=== PATIENT | female | born 2005 | race Caucasian/White ===

== ENCOUNTER 2023-05-11 14:36 | Outpatient (OUT) | payer OTHER, SELFPAY ==
--- NOTE | 2023-05-11 14:47 | US_ITS ---
The [address] [address] Patient Name: PHILL ARREGUIN MRN: [id number] date: 2005 Sex: F Assigned Patient Location: US Current Patient Location: US Accession/Order Number: [id number] Exam Date: 05/11/2023 14:48 Report Date: 05/11/2023 16:26 At the request of: ERIC BARBER Procedure: US pelvis transvaginal EXAM: US pelvis transvaginal HISTORY: PELVIC PAIN COMPARISON: 03/12/2022. TECHNIQUE: Pelvic sonography was performed utilizing grayscale and color Doppler technique. FINDINGS: Anteverted uterus measures 10.0 x 5.2 x 6.0 cm. Uterine endometrial stripe measures 0.3 cm in thickness. Appropriately positioned IUD. Right ovary measures 3.1 x 1.7 x 2.0 cm. Normal right ovarian parenchyma. Left ovary measures 1.8 x 2.5 x 1.3 cm. Normal left ovarian parenchyma. Prominent bilateral adnexal vasculature although measuring less than 4 mm. Small amount of posterior pelvic fluid, likely physiologic. US/US pelvis transvaginal IMPRESSION: 1. No acute pelvic findings. 2. Appropriate positioned IUD. Electronically authenticated by: CUAUHTEMOC REYNOLDS Date: 05/11/2023 16:26
== END 2023-05-11 14:37 | disposition home or self-care (01) ==
LOC: US 14:43
PROVIDERS: Visit Provider Obstetrics & Gynecology
DX: R10.2 Pelvic and perineal pain (principal)
CPT/HCPCS: 76830

== ENCOUNTER 2023-05-19 13:53 | Outpatient (OUT) | payer OTHER, SELFPAY | END 2023-05-19 13:54 | disposition home or self-care (01) | PROVIDERS: Visit Provider Obstetrics & Gynecology | DX: Z01.818 Encounter for other preprocedural examination (principal); T83.39XA Other mechanical complication of intrauterine contraceptive device, initial encounter; Z30.430 Encounter for insertion of intrauterine contraceptive device ==

== ENCOUNTER 2023-05-30 08:47 | Day surgery (SDC) | payer OTHER, SELFPAY ==
[2023-05-19 14:17] VITALS: BP 108/66; PULSE 87; RESP 14; TEMP 36.4; O2SAT 96; BMI 29.3
[2023-05-30] VITALS (9 sets, daily range): BP systolic 81–123; BP diastolic 52–80; PULSE 64–98; RESP 12–16; TEMP 36.6–36.8; O2SAT 95–99
[2023-05-30 08:57] LABS: Basophils Absolute Auto 0.1 10^3/uL (0.0-0.1); Basophils Percent Auto 0.9 % (0.2-2.0); Eosinophils Absolute Auto 0.1 10^3/uL (0.0-0.7); Eosinophils Percent Auto 1.7 % (0.9-7.0); Hematocrit 42.9 % (36.0-48.0); Hemoglobin 14.4 g/dL (12.0-16.0); Immature Granulocytes Abs Auto 0.01 10^3/uL (0.00-0.03); Immature Granulocytes Pct Auto 0.1 % (0.0-0.5); Lymphocytes Percent Auto 26.6 % (20.5-60.0); Mean Corpuscular HGB Conc 33.6 g/dL (29.9-35.2); Mean Corpuscular Hemoglobin 28.4 pg (26.7-34.0); Mean Corpuscular Volume 84.6 fL (81.0-99.0); Mean Platelet Volume 10.4 fL (9.5-13.5); Monocytes Absolute Auto 0.7 10^3/uL (0.3-0.8); Monocytes Percent Auto 9.1 % (1.7-12.0); Neutrophils Absolute Auto 4.7 10^3/uL (1.4-6.5); Neutrophils Percent Auto 61.6 % (43.0-75.0); Platelet Count 326 10^3/uL (150-450); Red Blood Count 5.07 10^6/uL (4.20-5.40); Red Cell Distribution Width 13.2 % (11.0-15.0); White Blood Count 7.6 10^3/uL (4.0-11.0)
[2023-05-30] MEDS: LACTATED RINGER'S SOLUTION 1,000 ML 50 ML IV (09:14)
[2023-05-30 09:18] LABS: HCG Quantitative <1 mIU/mL
--- NOTE | 2023-05-30 11:34 | PM.ONB ---
Brief Operative Note Date of procedure: 05/30/23 Pre-op diagnosis: RETAINED IUD Post-op diagnosis: same as pre-op Procedure: Removal of retained iud, iud placement NAME OF PROCEDURE: [Removal of retained iud, iud placement PROCEDURE: The patient was taken back to the Operating Room where she was prepped and draped in normal sterile fashion after being placed under general anesthesia without difficulty. She was also placed in the dorsal lithotomy position. A weighted speculum was placed in the patient?s vagina. The anterior lip of the cervix was identified and grasped with a single tooth tenaculum. The patient?s uterus was then sounded roughly to [? 8] cm. The polyp forcep was used and iud was removed, The iud prabhu was then placed without difficulty. The single tooth tenaculum was then removed from the patient's anterior lip of the cervix where excellent hemostasis was noted. All instruments were removed from the patient?s vagina. The patient tolerated the procedure well. Sponge, lap and needle counts were correct times two. The patient was taken to the Recovery Room in stable condition.Room in stable condition. Anesthesia: ARNOLDA Surgeon: Gilberto Fairbanks Estimated blood loss (mL): 5 Pathology: none sent Condition: stable Disposition: PACU
--- NOTE | 2023-05-30 12:53 | PC.NURSE ---
no vaginal drainage
== END 2023-05-30 12:45 | disposition home or self-care (01) ==
PROVIDERS: Visit Provider Obstetrics & Gynecology
PROC: (CPT 58300; principal; 2023-05-30 10:20)
DX: Z30.433 Encounter for removal and reinsertion of intrauterine contraceptive device (principal); R10.2 Pelvic and perineal pain
CPT/HCPCS: 58300; 58301; 36415; 84702; 85025; J2704

== ENCOUNTER 2024-05-22 08:30 | Outpatient (RCR) | payer BC, SELFPAY ==
[2024-05-22 09:41] LABS: HCG Quantitative <1 mIU/mL
[2024-05-24 10:17] LABS: HCG Quantitative <1 mIU/mL
== END 2024-07-10 23:59 | disposition home or self-care (01) ==
LOC: LAB 08:30
PROVIDERS: Visit Provider Obstetrics & Gynecology
DX: N92.6 Irregular menstruation, unspecified (principal)
CPT/HCPCS: 36415; 84702

== ENCOUNTER 2025-02-11 08:56 | Outpatient (OUT) | payer BC, SELFPAY ==
--- OUTSIDE RECORDS SUMMARY | 2025-02-11 08:58 | XMS_ITS | Encounter Summary ---
Author Organization [facility] Address [address] [place] [address] Care Team Providers Care Wheel Aligner Name Role Phone Eric Fairbanks DO Unavailable Encounter Details Date Type Department Care Team (Late Contact Info) Description 05/11/2023 Clinisync Result Encounter [facility] External Department Unsolicited Eric Fairbanks DO [address] [place], [place] [id number] Social History Tobacco Use Types Packs/Day Years Used Date Smoking Tobacco: Never Smokeless Tobacco: Never Alcohol Use Standard Drinks/Week Comments Never 0 (1 standard drink = 0.6 oz pur e alcohol) Comments Unknown Sex and Gender Information Value Date Recorded Sex Assigned at Not on file Legal Sex Female 11:47 PM EDT Gender Identity Not on file Sexual Orientation Not on file documented as of this encounter Plan of Treatment Upcoming Encounters Date Type Department Care Team ([facility] [address] Contact Info) Description 03/04/2025 2:20 PM EDT Office Visit [facility] [address] [place] [address] [place] [id number] Eric Fairbanks DO [address] [place] [address] documented as of this encounter Procedures Procedure Name Priority Date/Time Associated Diagnosis Comments US PELVIS TRANSVAGINAL 05/11/2023 4:26 PM EDT documented in this encounter Results * US PELVIS TRANSVAGINAL (05/11/2023 4:26 PM EDT) Anatomical Region Laterality Modality Other 05/11/2023 4:26 PM EDT Narrative 05/11/2023 4:26 PM EDT [address] [address] Ultrasound Report Signed Patient: Phill Arreguin MR#: [id number] : 2005 Acct:[id number] Age/Sex: 17 / F ADM Date: 05/11/23 Loc: US Attending Dr: Eric Fairbanks D.O. Ordering Physician: Eric Fairbanks D.O. Date of Service: 05/11/23 Procedure(s): US pelvis transvaginal Accession Number(s): [id number] cc: Eric Fairbanks D.O.; Physician,Non-Staff [address] [place] [id number] Patient Name: PHILL ARREGUIN MRN: [id number] date: 2005 Sex: F Assigned Patient Location: US Current Patient Location: US Accession/Order Number: [id number] Exam Date: 05/11/2023 14:48 Report Date: 05/11/2023 16:26 At the request of: ERIC FAIRBANKS Procedure: US pelvis transvaginal EXAM: US pelvis transvaginal HISTORY: PELVIC PAIN COMPARISON: 03/12/2022. TECHNIQUE: Pelvic sonography was performed utilizing grayscale and color Doppler technique. FINDINGS: Anteverted uterus measures 10.0 x 5.2 x 6.0 cm. Uterine endometrial stripe measures 0.3 cm in thickness. Appropriately positioned IUD. Right ovary measures 3.1 x 1.7 x 2.0 cm. Normal right ovarian parenchyma. Left ovary measures 1.8 x 2.5 x 1.3 cm. Normal left ovarian parenchyma. Prominent bilateral adnexal vasculature although measuring less than 4 mm. Small amount of posterior pelvic fluid, likely physiologic. US/US pelvis transvaginal IMPRESSION: 1. No acute pelvic findings. 2. Appropriate positioned IUD. Electronically authenticated by: CUAUHTEMOC CASTRO Date: 05/11/2023 16:26 Dictated By: Cuauhtemoc Castro Signed By: 05/11/23 1628 DD/ 25 TD/TT: Bank Courier: Procedure Note Radiology, Radiologist, MD - 05/11/2023 [place] [address] Ultrasound Report Signed Patient: Phill Arreguin AMR#: [id number] : 2005Acct:[id number] Age/Sex: 17 / FADM Date: 05/11/23 Loc: US Attending Dr: Eric Faibranks D.O. Ordering Physician: Eric Fairbanks D.O. Date of Service: 05/11/23 Procedure(s): US pelvis transvaginal Accession Number(s): [id number] cc: Eric Fairbanks D.O.; Physician,Non-Staff [address] [address] [place] [address] Patient Name: PHILL ARREGUIN MRN: [id number] date: 2005 Sex: F Assigned Patient Location: US Current Patient Location: US Accession/Order Number: [id number] Exam Date: 05/11/2023 14:48 Report Date: 05/11/2023 16:26 At the request of: ERIC FAIRBANKS Procedure: US pelvis transvaginal EXAM: US pelvis transvaginal HISTORY: PELVIC PAIN COMPARISON: 03/12/2022. TECHNIQUE: Pelvic sonography was performed utilizing grayscale and color Doppler technique. FINDINGS: Anteverted uterus measures 10.0 x 5.2 x 6.0 cm. Uterineendometrial stripe measures 0.3 cm in thickness. Appropriately positioned IUD. Right ovary measures 3.1 x 1.7 x 2.0 cm. Normal right ovarian parenchyma. Left ovary measures 1.8 x 2.5 x 1.3 cm. Normal left ovarian parenchyma. Prominent bilateral adnexal vasculature although measuring less than 4 mm. Small amount of posterior pelvic fluid, likely physiologic. US/US pelvis transvaginal IMPRESSION: 1. No acute pelvic findings. 2. Appropriate positioned IUD. Electronically authenticated by: CUAUHTEMOC CASTRO Date: 05/11/2023 16:26 Dictated By: Cuauhtemoc Castro Signed By:05/11/23 1628 DD/ 25 TD/TT: Bank Courier: Eric Fairbanks DO [facility] Final Result documented in this encounter Visit Diagnoses Not on filedocumented in this encounter Care Teams Wheel Aligner Relationship Specialty Start Date End Date Eric Fairbanks DO [address] [place] [id number] PCP - [place] [employer] 07/11/23 documented as of this encounter
--- OUTSIDE RECORDS SUMMARY | 2025-02-11 08:58 | XMS_ITS | Encounter Summary ---
Author Organization [facility] Address [address] [place] [address] Care Team Providers Care Gauge And Weigh Machine Operator Name Role Phone Gilberto Fairbanks DO Unavailable Encounter Details Date Type Department Care Team (Late Contact Info) Description 01/01/2025 Abstract [facility] [address] [place] [address] [facility] [address] [place], [facility] Social History Tobacco Use Types Packs/Day Years [...] Upcoming Encounters Date Type Department Care Team ([facility] Contact Info) Description 03/04/2025 2:20 PM EDT Office Visit [facility] [place] [phone] Gilberto Fairbanks, [address], [facility] documented as of this encounter Visit Diagnoses Not on filedocumented in this encounter Care Teams Gauge And Weigh Machine Operator Relationship Specialty Start Date End Date Gilberto Fairbanks DO [address] [place] [id number] PCP - [place] [employer] 07/11/23 documented as of this encounter
--- OUTSIDE RECORDS SUMMARY | 2025-02-11 08:58 | XMS_ITS | Clinical Summary ---
Author Organization [facility] Address [address] [place] [address] Care Team Providers Care Caddy Name Role Phone Gilberto Fairbanks DO Unavailable Allergies Active Allergy Reactions Criticality Noted Date Comments Lactose Medium 09/14/2019 diarrhea Medications No known medications Encounters Date Type Department Care Team Description 01/25/2025 [place] [address] Antonia Campuzano LPN 01/24/2025 Results [place] [address] Antonia Campuzano LPN 01/21/2025 2:30 PM EDT [place]illary [place] [address] Pelvic pain in female 01/01/2025 9:30 AM EDT [place] [address] Gilberto Fairbanks DO Encounter for IUD removal; Pelvic pain in female 01/01/2025 Abstract [facility] [place] [facility] [address] [place] [address] Gilberto Fairbanks DO from Last 3 Months Social History Tobacco Use Types Packs/Day Years Used Date Smoking Tobacco: Never Smokeless Tobacco: Never Tobacco Cessation:Counseling Given: Not Answered Alcohol Use Standard Drinks/Week Comments Never 0 (1 standard drink = 0.6 oz pur e alcohol) Comments Unknown Sex and Gender Information Value Date Recorded Sex Assigned at Not on file Legal Sex Female 11:47 PM EDT Gender Identity Not on file Sexual Orientation Not on file Last Filed Vital Signs Vital Sign Reading Time Taken Comments Blood Pressure 114/74 01/01/2025 9:50 AM EDT Pulse - - Temperature - - Respiratory Rate - - Oxygen Saturation - - Inhaled Oxygen Concentration - - Weight 105 kg (230 lb 12.8 oz) 01/01/2025 9:50 A M EDT Height 165.1 cm (5' 5 ) 05/11/2023 1:39 PM EDT Body Mass Index 38.41 05/11/2023 1:39 PM EDT Plan of Treatment Upcoming Encounters Date Type Department Care Team (Late st Contact Info) Description 03/04/2025 2:20 PM EDT Office Visit [facility] [address] [place] [address] Gilberto Fairbanks DO [address] [place] [address] Health Maintenance Due Date Last Done Comments Influenza Vaccine (#1) 2025 Procedures Procedure Name Priority Date/Time Associated Diagnosis Comments US PELVIC COMPLETE W/ TV Routine 01/21/2025 2:38 PM EDT Pelvic pain in female IUD REMOVAL Routine 01/01/2025 10:09 AM EDT Encounter for IUD removal from Last 3 Months Results * US Pelvis w/ TV (01/21/2025 2:38 PM EDT) Anatomical Region Laterality Modality Pelvis Ultrasound 01/23/2025 6:17 PM EDT Impressions 01/24/2025 8:08 AM EDT Right lower quadrant findings, uncertain etiology however this does correspond to the patient's location of pain at this time of imaging. This may represent a inflammatory appendix suboptimally visualized with a typical elongated morphology. If symptoms persist following appropriate medical management recommend CT. TRANSCRIBED BY: ELECTRONICALLY SIGNED BY: Mac Chen MD Narrative 01/24/2025 8:08 AM EDT FINDINGS: Uterus 10.1 x 3.7 x 5.8 cm Endometrium 6 mm Right ovary 2.8 x 1.9 x 2.8 cm Left ovary 2.3 x 1.9 x 2.1 cm The uterus is normal in size and orientation. No worrisome mass lesions are seen. Endometrium appears unremarkable (small amount of pelvic fluid). No fluid is seen within the cul-de-sac. Both ovaries appear normal for this age. Corresponding with the patient's area of pain, right lower quadrant, is a hypoechogenic 1 x 1 cm AP by transverse diameter structure, overall length not measured, no shadowing or neighboring inflammation. This does correspond with the patient's area of pain and is of questionable significance. Procedure Note Mac Chen MD - 01/24/2025 FINDINGS: Uterus 10.1 x 3.7 x 5.8 cm Endometrium 6 mm Right ovary 2.8 x 1.9 x 2.8 cm Left ovary 2.3 x 1.9 x 2.1 cm The uterus is normal in size and orientation. No worrisome mass lesionsare seen. Endometrium appears unremarkable (small amount of pelvicfluid). No fluid is seen within the cul-de-sac. Both ovaries appearnormal for this age. Corresponding with the patient's area of pain, right lower quadrant, is ahypoechogenic 1 x 1 cm AP by transverse diameter structure, overall lengthnot measured, no shadowing or neighboring inflammation. This doescorrespond with the patient's area of pain and is of questionablesignificance. IMPRESSION: Right lower quadrant findings, uncertain etiology however this doescorrespond to the patient's location of pain at this time of imaging. Thismay represent a inflammatory appendix suboptimally visualized with atypical elongated morphology. If symptoms persist following appropriatemedical management recommend CT. TRANSCRIBED BY: ELECTRONICALLY SIGNED BY: Mac Chen MD us Gilberto Fairbanks DO IMG US PROCEDURES Final Result * IUD Removal (01/01/2025 10:09 AM EDT) Mirela Diamond LPN - 01/01/2025 10:09 AM EDT Mirela Mcnair LPN 01/01/2025 10:18 AM IUD Removal Date/Time: 01/01/2025 10:09 AM Performed by: Gilberto Fairbanks DO Authorized by: Gilberto Fairbanks DO Consent: Consent obtained: Written Consent given by: Patient Procedure risks and benefits discussed: yes Patient questions answered: yes Patient agrees, verbalizes understanding, and wants to proceed: yes Educational handouts given: yes Instructions and paperwork completed: yes [place] protocol: Patient states understanding of procedure being performed: yes Relevant documents present and verified: yes Test results available and properly labeled: yes Imaging studies available: yes Required blood products, implants, devices, and special equipment available: yes Site marked: yes Procedure: Removed with no complications: yes Removal due to mechanical complications of IUD: no Removal due to infection and inflammatory reaction: no Comments: IUD Removal: Patient presents today for removal of IUD. Written consent was obtained and patient was placed in dorsal lithotomy position with feet in stirrups. A sterile speculum was inserted into the vagina and the cervix was visualized. The IUD strings were grasped gently with forceps and the IUD was removed in its entirety without difficulty. The IUD was shown to the patient then properly discarded. Follow Up: Patient is to return to the office for annual exam unless needed otherwise Gilberto Fairbanks DO IN CLINIC/BEDSIDE ORDERABLES Fin al Result from Last 3 Months Insurance [employer] Care Teams Caddy Relationship Specialty Start Date End Date Gilberto Fairbanks DO [address] [place] [address] [place] [address] PCP - [place] [employer] 07/11/23
--- OUTSIDE RECORDS SUMMARY | 2025-02-11 08:58 | XMS_ITS | Clinical Summary ---
Author Organization [facility] Address [id number] [address] [place] [address] Care Team Providers Care Stamp Mounter Name Role Phone No Pcp, No Pcp Primary Care Provider Unavailabl e Allergies No known active allergies Medications ibuprofen (ADVIL,MOTRIN) 600 mg tablet Take 1 tablet (600 mg total) by mouth every 6 (six) hours as needed for pain. 30 tablet 02/04/2021 Active Social History Tobacco Use Types Packs/Day Years Used Date Smoking Tobacco: Never Smokeless Tobacco: Never Childcare Answer Date Recorded Childcare Unknown 12/20/2018 Employment Answer Date Recorded Employment Unknown 12/20/2018 Comments Unknown Sex and Gender Information Value Date Recorded Sex Assigned at Not on file Legal Sex Female 12:01 PM EDT Gender Identity Not on file Sexual Orientation Not on file Last Filed Vital Signs Vital Sign Reading Time Taken Comments Blood Pressure 121/82 02/04/2021 6:30 PM EDT Pulse 84 02/04/2021 6:30 PM EDT Temperature 36.6 C (97.8 F) 02/04/2021 3:11 PM EDT Respiratory Rate 18 02/04/2021 6:30 PM EDT Oxygen Saturation 100% 02/04/2021 6:30 PM EDT Inhaled Oxygen Concentration - - Weight 88.5 kg (195 lb) 02/04/2021 3:11 PM EDT Height 167.6 cm (5' 6 ) 02/04/2021 3:11 PM EDT Body Mass Index 31.47 02/04/2021 3:11 PM EDT Plan of Treatment Health Maintenance Due Date Last Done Comments Depression Screening 2015 Tobacco Screening 2015 Adult BMI Screening 2021 DTaP,Tdap and Td Vaccines (1 - Tdap) 2022 Pap Smear 2024 Influenza Vaccine 03/11/2025 Medical Devices Not on file Insurance [employer] [employer] [employer] [employer] Care Teams Stamp Mounter Relationship Specialty Start Date End Date [place], [place] [address] PCP - General Family Medicine 02/04/21
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
== END 2025-02-11 08:57 | disposition home or self-care (01) ==
LOC: CT 08:56
PROVIDERS: Visit Provider Obstetrics & Gynecology
DX: R10.2 Pelvic and perineal pain (principal)
CPT/HCPCS: 36415; 84702

== ENCOUNTER 2025-02-13 10:16 | Outpatient (OUT) | payer SELFPAY ==
--- OUTSIDE RECORDS SUMMARY | 2025-02-13 10:21 | XMS_ITS | Clinical Summary ---
Author Organization [facility] Address [id number] [address] [place] [address] Care Team Providers Care Grounds Cleaner Name Role Phone No Pcp, No Pcp [...] MEDICAID [employer] Care Teams Grounds Cleaner Relationship Specialty Start Date End Date No Pcp, [place] [address] PCP - General Family Medicine 02/04/21
--- OUTSIDE RECORDS SUMMARY | 2025-02-13 10:21 | XMS_ITS | Clinical Summary ---
Author Organization [facility] Address [address] [place] [address] Care Team Providers Care Thread Grinder Tool Name Role Phone Unavailable Primary Care Provider Unavailabl e Allergies Active Allergy Reactions Criticality Noted Date Comments Lactose Medium 09/14/2019 diarrhea Medications No known medications Encounters Date Type Department Care Team Description 02/11/2025 Telephone [facility] [address] [place] [address] Lilian Lawson LPN 02/11/2025 Clinisync Result Encounter [facility] External Department Unsolicited Gilberto Fairbanks DO 02/11/2025 Telephone [facility] [address] [address] [place] [address] Radha Ballesteros MA 01/25/2025 Telephone [facility] [address] [place] [address] Antonia Campuzano LPN 01/24/2025 Results Follow-Up [facility] [address] [place] [address] Antonia Campuzano LPN 01/21/2025 2:30 PM EDT Ancillary Procedure [facility] [address] [place] [address] Pelvic pain in female 01/01/2025 9:30 AM EDT Procedure Visit [facility] [address] [place] [address] Gilberto Fairbanks DO Encounter for IUD removal; Pelvic pain in female 01/01/2025 Abstract [facility] [address] [place] [id number] Gilberto Fairbanks DO from Last 3 Months [...] Description 03/04/2025 2:20 PM EDT Office Visit [facility] [place] [address] Gilberto Fairbanks DO [address] [facility] [place] [address] 03/07/2025 12:30 PM EDT Ancillary Procedure [facility] [address] [place] [id number] 03/07/2025 1:00 PM EDT Initial [facility] [address] [place] [address] Health Maintenance Due Date Last Done Comments Influenza Vaccine (#1) 2025 Procedures Procedure Name Priority Date/Time Associated Diagnosis Comments [facility] PREG QUANT HCG Routine 02/11/2025 11 :03 AM EDT US PELVIC COMPLETE W/ TV Routine 01/21/2025 2:38 PM EDT Pelvic pain in female IUD REMOVAL Routine 01/01/2025 10:09 AM EDT Encounter for IUD removal from Last 3 Months Results * [facility] PREG QUANT HCG (02/11/2025 11:03 AM EDT) HCG QUANTITATIVE 127 mIU/mL [facility] Comment: 5-50 0.2-1 WEEK 50-500 1-2 WEEKS 100-5,000 2-3 WEEKS 500-10,000 3-4 WEEKS 1,000-50,000 4-5 WEEKS 10,000-100,000 5-6 WEEKS 15,000-200,000 6-8 WEEKS 10,000-100,000 2-3 MONTHS 02/11/2025 11:0 3 AM EDT 02/11/2025 11:04 AM EDT Narrative [facility] - 02/11/2025 11:33 AM EDT us Gilberto Magdi DO [facility] Final Result [facility] TB * US Pelvis w/ TV (01/21/2025 2:38 [...] CT. TRANSCRIBED BY: ELECTRONICALLY SIGNED BY: Mac hCen MD us Gilberto Fairbanks DO IMG US PROCEDURES Final Result * IUD Removal (01/01/2025 10:09 AM EDT) Mirela Diamond LPN - 01/01/2025 10:09 AM EDT Mirela Mcnair LPN 01/01/2025 10:18 AM IUD Removal Date/Time: 01/01/2025 10:09 AM Performed by: Gilberto Fairbanks DO Authorized by: Gilberto Fairabnks DO Consent: Consent obtained: Written Consent given by: Patient Procedure risks and benefits discussed: yes Patient questions answered: yes Patient agrees, verbalizes understanding, and wants to proceed: yes Educational handouts given: yes Instructions and paperwork completed: yes Marion protocol: Patient states understanding of procedure being [...]
--- OUTSIDE RECORDS SUMMARY | 2025-02-13 10:21 | XMS_ITS | Encounter Summary ---
Author Organization [facility] Address [address] [place] [address] Care Team Providers Care Belt Loop Maker Name Role Phone Gilberto Fairbanks DO Unavailable Encounter Details Date Type Department Care Team (Late Contact Info) Description 01/01/2025 Abstract [facility] [place] [address] Gilberto Fairbanks [facility] [place], [facility] Social History Tobacco Use Types Packs/Day Years [...] Encounters Date Type Department Care Team (Late Contact Info) Description 03/04/2025 2:20 [place] [address] Gilberto Fairbanks [address] [place], [facility] 03/07/2025 12:30 [place] [address] 03/07/2025 1:00 [place] [address] documented as of this encounter Visit Diagnoses Not on filedocumented in this encounter Care Teams Belt Loop Maker Relationship Specialty Start Date End Date Gilberto Fairbanks DO [address] [place] [address] PCP - [place] [employer] 07/11/23 documented as of this encounter
--- OUTSIDE RECORDS SUMMARY | 2025-02-13 10:21 | XMS_ITS | Encounter Summary ---
Author Organization [facility] Address [address] [place] [address] Care Team Providers Care Rehab Aide Name Role Phone Unavailable Primary Care Provider Unavailabl e Encounter Details Date Type Department Care Team ([facility] Contact Info) Description 02/11/2025 Telephone [facility] [address] [place] [address] Radha Ballesteros MA Social History Tobacco Use Types Packs/Day Years [...] on file documented as of this encounter Miscellaneous Notes * Telephone Encounter - Radha Ballesteros MA - 02/11/2025 10:31 AM EDT [facility] called requesting hCG order. Order sent documented in this encounter Plan of Treatment Upcoming Encounters Date Type Department Care Team ([facility] Contact Info) Description 03/04/2025 2:20 PM EDT Office Visit [facility] [address] [place] [address] Gilberto Fairbanks DO [address] [place], [place] [id number] 03/07/2025 12:30 PM EDT Ancillary Procedure [facility] [address] [place] [address] 03/07/2025 1:00 PM EDT Initial [facility] [address] [place] [address] [place] [address] Scheduled Orders Name Type Priority Associated Diagnoses Orde r Schedule hCG, quantitative, Lab Routine Positive urine test ([facility]) 2 Occurrences starting 02/11/2025 until 02/11/2026 documented as of this encounter Visit Diagnoses Diagnosis Positive urine test ([facility]) documented in this encounter
--- OUTSIDE RECORDS SUMMARY | 2025-02-13 10:21 | XMS_ITS | Encounter Summary ---
Author Organization [facility] Address [address] [place] [address] Care Team Providers Care Lawn Care Technician Name Role Phone Unavailable Primary Care Provider Unavailabl e Encounter Details Date Type Department Care Team (Late Contact Info) Description 01/24/2025 Results Follow-Up [facility] [address] [facility] [place] [address] Antonia Campuzano LPN [address] [place] [address] Social History Tobacco Use Types Packs/Day Years [...] as of this encounter Miscellaneous Notes * Result Encounter Note - Antonia Campuzano LPN - 01/25/2025 8:30 AM EDT Pt notified and CT ordered * Result Encounter Note - Antonia Campuzano LPN - 01/24/2025 11:35 AM EDT Attempted to call pt but it went straight to voicemail. Voicemail was not set up so I was unable toleave message. Will try again later. documented in this encounter Plan of Treatment Upcoming Encounters Date Type Department Care Team (Late Contact Info) Description 03/04/2025 2:20 PM EDT Office Visit [place] [facility] [address] [place] [phone] Gilberto Fairbanks DO [address] [facility] [address] [place] [address] 03/07/2025 12:30 PM EDT Ancillary Procedure [place] [facility] [address] [place] [phone] 03/07/2025 1:00 PM EDT Initial [facility] [address] [place] [address] [place] [phone] documented as of this encounter Visit Diagnoses Not on filedocumented in this encounter
--- OUTSIDE RECORDS SUMMARY | 2025-02-13 10:21 | XMS_ITS | Encounter Summary ---
Author Organization [facility] Address [address] [place] [address] Care Team Providers Care Ethics Manager Name Role Phone Unavailable Primary Care Provider Unavailabl e Encounter Details Date Type Department Care Team (Late Contact Info) Description 02/11/2025 Telephone [facility] Melissa MCDANIEL [address] [place] [phone] Lilian Lawson LPN Social History Tobacco Use Types Packs/Day Years [...] encounter Miscellaneous Notes * Telephone Encounter - Lilian Lawson LPN - 02/11/2025 12:15 PM EDT 12:00pm Spoke with patient and patient aware that her HCG levels came back positive today and that she will not be able to obtain CT scan today. Patient will have labs drawn again on Tuesday & if rise appropriately no further labs will need to be drawn at this time. Based on patients LMP 01/14/25 she is currently 4 weeks gestation today with ALEXA of 10/21/2025. PVU and was transferred to clerical to setup appointment for possible 03/07/25 for viability US and OB intake. Lilian Tucker LPN documented in this encounter Plan of Treatment Upcoming Encounters Date Type Department Care Team ([facility] Contact Info) Description 03/04/2025 2:20 PM EDT Office Visit [facility] MCDANIEL [address] [place] [phone] Gilberto Fairbanks DO [address] [facility] [address] [place], [place] [id number] 03/07/2025 12:30 PM EDT Ancillary Procedure [facility] Melissa MCDANIEL [address] [facility] [place] [address] 03/07/2025 1:00 PM EDT Initial [facility] Melissa MCDANIEL [address] [facility] [place] [phone] documented as of this encounter Visit Diagnoses Not on filedocumented in this encounter
--- OUTSIDE RECORDS SUMMARY | 2025-02-13 10:21 | XMS_ITS | Encounter Summary ---
Author Organization [facility] Address [address] [place] [address] Care Team Providers Care Paper Bag Maker Name Role Phone Eric Fairbanks DO Unavailable Encounter Details Date Type Department Care Team (Late Contact Info) Description 05/11/2023 Clinisync Result Encounter [facility] External Department Unsolicited Eric Fairbanks DO [address] [place], [place] [phone] Social History Tobacco Use Types Packs/Day Years [...] 2:20 PM EDT Office Visit [facility] [place] [place] [address] Eric Fairbanks DO [address] [place] [address] 03/07/2025 12:30 PM EDT Ancillary Procedure [facility] [place] [place] [address] 03/07/2025 1:00 PM EDT Initial [facility] [place] [place] [address] documented as of this encounter Procedures Procedure Name Priority Date/Time Associated Diagnosis Comments US PELVIS TRANSVAGINAL 05/11/2023 4:26 PM EDT documented in this encounter Results * US PELVIS TRANSVAGINAL (05/11/2023 4:26 PM EDT) Anatomical Region Laterality Modality Other 05/11/2023 4:26 PM EDT Narrative 05/11/2023 4:26 [place] [address] Ultrasound Report Signed Patient: Phill Arreguin MR#: [id number] : 2005 Acct:[id number] Age/Sex: 17 / F ADM Date: 05/11/23 Loc: US Attending Dr: Eric Fairbanks D.O. Ordering Physician: Eric Fairbanks D.O. Date of Service: 05/11/23 Procedure(s): US pelvis transvaginal Accession Number(s): [id number] cc: Eric Fairbanks D.O.; Physician,Non-Staff M.Pearl [address] [address] Patient Name: PHILL ARREGUIN MRN: [id number] date: 2005 Sex: F Assigned Patient Location: US Current Patient Location: US Accession/Order Number: [id number] Exam Date: 05/11/2023 14:48 Report Date: 05/11/2023 [...] 16:26 Dictated By: Cuauhtemoc Castro Signed By: 05/11/238 DD/ 25 TD/TT: Pharmaceutical Service Representative: Procedure Note Radiology, Radiologist, MD - 05/11/2023 [place] [address] Ultrasound Report Signed Patient: Phill Arreguin AMR#: [id number] : 2005Acct:[id number] Age/Sex: 17 / FADM Date: 05/11/23 Loc: US Attending Dr: Eric Fairbanks D.O. Ordering Physician: Eric Fairbanks D.O. Date of Service: 05/11/23 Procedure(s): US pelvis transvaginal Accession Number(s): [id number] cc: Eric Fairbanks D.O.; Physician,Non-Staff M.Pearl [address] [place] [id number] Patient Name: PHILL ARREGUIN MRN: [id number] date: 2005 Sex: F Assigned Patient Location: US Current Patient Location: US Accession/Order Number: [id number] Exam Date: 05/11/2023 14:48 Report Date: 05/11/2023 [...] 05/11/2023 16:26 Dictated By: Cuauhtemoc Castro Signed By:05/11/238 DD/ 25 TD/TT: Pharmaceutical Service Representative: us Eric Fairbanks DO [facility] Final Result documented in this encounter Visit Diagnoses Not on filedocumented in this encounter Care Teams Paper Bag Maker Relationship Specialty Start Date End Date Eric Fairbanks DO [address] [place], [place] [address] [address] PCP - [employer] 07/11/23 documented as of this encounter
--- OUTSIDE RECORDS SUMMARY | 2025-02-13 10:21 | XMS_ITS | Encounter Summary ---
Author Organization [facility] Address [address] [place] [address] Care Team Providers Care Tar Heat Exchanger Cleaner Name Role Phone Unavailable Primary Care Provider Unavailabl e Encounter Details Date Type Department Care Team (Late Contact Info) Description 02/11/2025 Clinisync Result Encounter [facility] External Department Unsolicited Gilberto Fairbanks, DO [address] [place], [place] [phone] Social History Tobacco Use Types Packs/Day Years [...] EDT Office Visit [facility]CD[facility] [place] [address] Gilberto Fairbanks DO [address] [place] [address] 03/07/2025 12:30 PM EDT Ancillary Procedure [facility] [place] [facility] [address] [place] [address] 03/07/2025 1:00 [place] [address] documented as of this encounter Procedures Procedure Name Priority Date/Time Associated Diagnosis Comments [facility] PREG QUANT HCG Routine 02/11/2025 11 :03 AM EDT documented in this encounter Results * [facility] PREG QUANT HCG (02/11/2025 11:03 AM EDT) HCG QUANTITATIVE 127 mIU/mL [facility] Comment: 5-50 0.2-1 WEEK 50-500 1-2 WEEKS 100-5,000 2-3 WEEKS 500-10,000 3-4 WEEKS 1,000-50,000 4-5 WEEKS 10,000-100,000 5-6 WEEKS 15,000-200,000 6-8 WEEKS 10,000-100,000 2-3 MONTHS 02/11/2025 11:0 3 AM EDT 02/11/2025 11:04 AM EDT Narrative [facility] - 02/11/2025 11:33 AM EDT us Gilberto Fairbanks DO [facility] documented in this encounter Visit Diagnoses Not on filedocumented in this encounter
== END 2025-02-13 10:17 | disposition home or self-care (01) ==
PROVIDERS: Visit Provider Obstetrics & Gynecology
DX: Z32.01 Encounter for pregnancy test, result positive (principal)
CPT/HCPCS: 36415; 84702

== ENCOUNTER 2025-03-02 16:28 | Emergency (ER) | payer OTHER, SELFPAY ==
--- OUTSIDE RECORDS SUMMARY | 2025-03-02 16:35 | XMS_ITS | Clinical Summary ---
Author Organization [facility] Address [address] [place] [address] Care Team Providers Care Set Up Mechanic Stamping Machines Name Role Phone Unavailable Primary Care Provider Unavailabl e Allergies Active Allergy Reactions Criticality Noted Date Comments Lactose Medium 09/14/2019 diarrhea Medications No known medications Encounters Date Type Department Care Team Description 02/13/2025 Clinisync Result Encounter [facility] External Department Unsolicited Gilberto Fairbanks DO 02/11/2025 [place] [address] Lilian Lawson LPN 02/11/2025 Clinisync Result Encounter [facility] External Department Unsolicited Gilberto Fairbanks, 02/11/2025 Telephone [facility] [place] [facility] [address] [place] [address] Radha Ballesteros MA 01/25/2025 Telephone [facility] [place] [facility] [address] [place] [address] Antonia Campuzano LPN 01/24/2025 Results [place] [address] Antonia Campuzano LPN US Pelvis w/ TV 01/21/2025 2:30 PM EDT [place] [address] Pelvic pain in female 01/01/2025 9:30 AM EDT Procedure Visit [facility] [place] [facility] [address] [place] [address] Gilberto Fairbanks DO Encounter for IUD removal; Pelvic pain in female 01/01/2025 [place] [address] Gilberto Fairbanks DO from Last 3 Months [...] Care Team (Late st Contact Info) Description 03/07/2025 12:30 PM EDT [place] [address] 03/07/2025 1:00 [place] [address] Health Maintenance Due Date Last Done Comments Influenza Vaccine (#1) 2025 Procedures Procedure Name Priority Date/Time Associated Diagnosis Comments [facility] PREG QUANT HCG Routine 02/13/2025 10 :40 AM EDT [facility] PREG QUANT HCG Routine 02/11/2025 11 :03 AM EDT US PELVIC COMPLETE W/ TV Routine 01/21/2025 2:38 PM EDT Pelvic pain in female IUD REMOVAL Routine 01/01/2025 10:09 AM EDT Encounter for IUD removal from Last 3 Months Results * [facility] PREG QUANT HCG (02/13/2025 10:40 AM EDT) Only the most recent of2 resultswithin the time period is included. HCG QUANTITATIVE 314 mIU/mL [facility] Comment: 5-50 0.2-1 WEEK 50-500 1-2 WEEKS 100-5,000 2-3 WEEKS 500-10,000 3-4 WEEKS 1,000-50,000 4-5 WEEKS 10,000-100,000 5-6 WEEKS 15,000-200,000 6-8 WEEKS 10,000-100,000 2-3 MONTHS 02/13/2025 10:4 0 AM EDT 02/13/2025 10:42 AM EDT Narrative [facility] - 02/13/2025 11:46 AM EDT us Gilberto Magdi DO [facility] [...] given: yes Instructions and paperwork completed: yes Kincaid protocol: Patient states understanding of procedure being [...] al Result from Last 3 Months Insurance [facility] [address]
--- OUTSIDE RECORDS SUMMARY | 2025-03-02 16:35 | XMS_ITS | Encounter Summary ---
Author Organization [facility] Address [address] [place] [address] Care Team Providers Care Crop Scout Name Role Phone Gilberto Fairbanks DO Unavailable Encounter Details Date Type Department Care Team (Late Contact Info) Description 01/01/2025 Abstract [facility] MCDANIEL [address] [place] [address] Gilberto Fairbanks DO [address] [place], [place] [phone] Social History Tobacco Use Types Packs/Day Years [...] Department Care Team (Late Contact Info) Description 03/07/2025 12:30 PM [place] [phone] 03/07/2025 1:00 PM EDT Initial [facility] MCDANIEL [address] [place] [address] documented as of this encounter Visit Diagnoses Not on filedocumented in this encounter Care Teams Crop Scout Relationship Specialty Start Date End Date Gilberto Fairbanks DO [address] [place], [place] [phone] PCP - [employer] 07/11/23 documented as of this encounter
--- OUTSIDE RECORDS SUMMARY | 2025-03-02 16:35 | XMS_ITS | Encounter Summary ---
Author Organization [facility] Address [address] [place] [address] Care Team Providers Care Flatwork Ironer Name Role Phone Unavailable Primary Care Provider Unavailabl e Encounter Details Date Type Department Care Team (Late Contact Info) Description 01/24/2025 Results Follow-Up [facility] [place] [facility] [address] [place] [address] Antonia Campuzano LPN [address] [place] [address] [place] Pelvis w/ TV Social History Tobacco Use Types Packs/Day Years [...] Description 03/07/2025 12:30 PM EDT Ancillary Procedure [facility] [place] [facility] [address] [place] [address] 03/07/2025 1:00 PM EDT Initial [facility] [place] [facility] [address] [place] [address] documented as of this encounter Visit Diagnoses Not on filedocumented in this encounter
--- OUTSIDE RECORDS SUMMARY | 2025-03-02 16:35 | XMS_ITS | Clinical Summary ---
Author Organization [facility] Address [id number] [address] [place] [address] Care Team Providers Care Mica Plate Layer Hand Name Role Phone No Pcp, No Pcp [...] MEDICAID [employer] Care Teams Mica Plate Layer Hand Relationship Specialty Start Date End Date No Pcp, [place] [address] PCP - General Family Medicine 02/04/21
--- OUTSIDE RECORDS SUMMARY | 2025-03-02 16:35 | XMS_ITS | CCD ---
Author Organization [facility] Inform ion Partnership [facility] Care Team Providers Care Copier Operator Name Role Phone LENO LIND Admitting Unavailable LENO LIND Attending Unavailable SHANNON GARRISON Consulting Unavailable NO, PHYSICIAN Primary Care Unavailable No, Physician Primary Care Provider Unavailgeovanna e NADER ., GERBER Admitting Unavailable ERNESTO ., LANDY Consulting Unavailable REQUEST, DR ELLIS LISTED Primary Care Unavaila ble NADER ., GERBER Attending Unavailable NADER ., GERBER Consulting Unavailable MAGDI ., DR REYES Attending Unavailable MAGDI ., DR REYES Admitting Unavailable DEXTER, DR GEORGIA Portillo Consulting Unavailable MAGDI ., DR REYES Consulting Unavailable MAGDI ., DR REYES Attending Unavailable MAGDI ., DR REYES Consulting Unavailable MAGDI ., DR REYES Admitting Unavailable Jenise Miller Unavailable Gilberto Fairbanks DO Unavailable Latoya SCHMIDT Attending Unavailable GILBERTO FAIRBANKS Referring Unavailable GILBERTO FAIRBANKS Attending Unavailable Unavailable Primary Care Provider Unavailabl e NO FAMILY, PHYSICIAN Primary Care Provider Unava ilable Leny Amezcua APRN Attending Provider [phone] Allergies Allergy Classification Reported Allergen(s) Allergy Type Date of Onset Reaction(s) Facility (7 sources) Lactose; Translations: [Unknown] Drug Allergy 09-14-2019 [facility] Repository Medications Current Medications Medication Drug Class(es) [...] escitalopram oxalate (LEXAPR O) tablet 5 mg Iron (1 source) Start: 03-02-2025 take 1 capsule by mouth once daily Pnv 802-Gwcx-[id number]-Dha 90 mg iron- 1 mg-200 mg capsule Active 1 CAP PO Daily March 02, 2025 12:00am Complies with drug therapy Levonorgestrel (2 sources) Progestin, Progestin-contain ing Intrauterine Device Usha Active predniSONE 20 mg oral tablet (3 sources) Start: 02-28-2023 take 1 tablet by mouth every twelve hours predniSONE 20 MG 1 tablet Orally bid for 5 day(s) Mar, Active Completed/Discontinued Medications Medication Drug Class(es) Dates Sig (Normalized) Sig (Original) acetaminophen 325 mg oral tablet (1 source) Start: 09-14-2019 End: 09-25-2019 take 1 tablet by mouth every four hours as needed acetaminophen (TYLENOL) tablet 650 mg [id number] 200 actuat albuterol 0.09 mg/actuat metered dose [...] [Pain in female pelvis] Onset: 03-12-2022 Episodic Adjustment disorders (1 source) Adjustment disorder with mixed disturbance of emotions AND conduct; Translations: [Adjustment disorder with mixed disturbance of emotions and conduct] 06-22-2023 Chronic Comment on above: Problem List clean-u p per request of Phys. EHR Cmte Allergic reactions (1 source) Unspecified contact dermatitis, [...] [Depressive disorder] Onset: 09-14-2019 09-16-2019 Chronic Other lower respiratory disease (1 source) Cough; Translations: [Cough] 03-02-2025 Episodic Other upper respiratory infections (2 sources) Acute sinusitis, unspecified; Translations: [Sore throat symptom] Episodic Past or Other Problems Problem Classification Problem Date Documented Da te Episodic/Chronic Unclassified (1 source) Contact with and (suspected) exposure to covid-19 Z20.822 Results Test Name Value Interpretation Reference Range Facility No Panel InformationOrdered By: Lenydario Amezcua on 03-02-2025 Quick Strep (POC) [facility] PREG QUANT HCGon 025 HCG QUANTITATIVE 314 mIU/mL [facility] Comment on above: 5-50 0.2-1 WEEK 50-500 1-2 WEEKS 100-5,000 2-3 WEEKS 500-10,000 3-4 WEEKS 1,000-50,000 4-5 WEEKS 10,000-100,000 5-6 WEEKS 15,000-200,000 6-8 WEEKS 10,000-100,000 2-3 MONTHS [facility] PREG QUANT HCGon 025 HCG QUANTITATIVE 127 mIU/mL [facility] Comment on above: 5-50 0.2-1 WEEK 50-500 1-2 WEEKS 100-5,000 2-3 WEEKS 500-10,000 3-4 WEEKS 1,000-50,000 4-5 WEEKS 10,000-100,000 5-6 WEEKS 15,000-200,000 6-8 WEEKS 10,000-100,000 2-3 MONTHS [facility] US PELVIC COMPLETE W/ TVon 0 01-21-2025 [...] given: yes Instructions and paperwork completed: yes [place] protocol: Patient states understanding of procedure being [...] office for annual exam unless needed otherwise [facility] PREG QUANT HCGon 11-14-2 024 HCG QUANTITATIVE <1 mIU/mL [facility] Comment on above: 5-50 0.2-1 WEEK 50-500 1-2 WEEKS 100-5,000 2-3 WEEKS 500-10,000 3-4 WEEKS 1,000-50,000 4-5 WEEKS 10,000-100,000 5-6 WEEKS 15,000-200,000 6-8 WEEKS 10,000-100,000 2-3 MONTHS [facility] PREG QUANT HCGon 024 HCG QUANTITATIVE <1 mIU/mL [facility] Comment on above: 5-50 0.2-1 WEEK 50-500 1-2 WEEKS 100-5,000 2-3 WEEKS 500-10,000 3-4 WEEKS 1,000-50,000 4-5 WEEKS 10,000-100,000 5-6 WEEKS 15,000-200,000 6-8 WEEKS 10,000-100,000 2-3 MONTHS [facility] COVID Quick Testingon 2022 Result Negative [facility] Other CULTURE WOUNDon 11-07-2022 CULTURE WOUND Culture Observations : ANAEROBE PRESENT. Isolate 1 Peptostreptococcus anaerobius Light growth of Normal [facility] Comment on above: Result Comment: EVID ENCE BASED PRACTICE BY [facility] HAS DEMONSTRATED THAT PEPTOSTREPTOCOCCUS SPECIES ARE ROUTINELY SUSCEPTIBLE TO PIPERACILLIN-TAZOBACTAM, CEFOXITIN, ERTAPENEM, IMIPENEM, METRONIDAZOLE AND VARIABLY RESISTANT TO CLINDAMYCIN. Performed By: #### W OUNDCX #### [facility] [address] [place] [address] Dr. Mayra Barajas US PELVIS AND TRANSVAGon [...] GEORGIA CHANG Date: 2022-03-12 17:19 Normal [facility] CHLAMYDIA/GONOCOCCUS GEOVANNA (SW AB/URINE/PAPon 03-08-2022 Chlamydia trachomatis, GEOVANNA Negative Normal Negative [facility] Comment on above: Performed By: #### C T/NGNA #### [facility] [address] [address] [address] Mayra Barajas Neisseria gonorrhoeae, GEOVANNA Negative Normal Negative [facility] Comment on above: Performed By: #### C T/NGNA #### [facility] [address] [address] [address] Mayra Barajas VAGINITIS/VAGINOSIS DNA PROB Charles 03-07-2022 Ginger species Negative Normal Negative [facility] Comment on above: Performed By: #### V AGINT #### [facility] [address] [address] [address] Mayra Barajas Gardnerella vaginalis Positive Abnormal Negative [facility] Comment on above: Performed By: #### V AGINT #### [facility] [address] [address] [address] Mayra Barajas Trichomonas vaginalis Negative Normal Negative [facility] Comment on above: Performed By: #### V AGINT #### [facility] [address] [address] [address] Mayra Barajas URINALYSISon 09-17-2019 Bacteria Auto Ql (U) Rare Abnormal None Se en /hpf [facility] Bilirubin Ql (U) Negative Negative [facility] Clarity Refractometry automated (U) Hazy Abnormal Clear [facility] Color (U) Yellow Colorless, Yellow [facility] Epithelial cells.squamous Auto (Urine sed) [#/Area] <1 [facility] Glucose Auto test strip (U) [Mass/Vol] Negative Negative mg/dL [facility] Hemoglobin Auto test strip Ql (U) Negative Negative [facility] Interpretation and review of laboratory results Abnormal [facility] Ketones (U) [Mass/Vol] Negative Negat meli mg/dL [facility] Leukocyte esterase Auto test strip Ql (U) Negative Negative [facility] h Mucus Auto (Urine sed) [#/Area] Rare None Seen, Rare /lpf [facility] Nitrite Auto test strip Ql (U) Negative Negative [facility] pH (U) 6.0 [pH] [facility] Protein (U) [Mass/Vol] Negative Negat meli mg/dL [facility] RBC Auto (Urine sed) [#/Area] <1 [facility] Specific gravity (U) [Rel density] 1.025 [facility] Urobilinogen (U) [Mass/Vol] <2.0 <2.0 mg/dL [facility] Microscopic examination is performed on all urinalysis samples and only positive findings are reported. The test for blood on the chemical analytic portion of urinalysis may also be positive due to hemoglobinuria and myoglobinuria and if red blood cells are present they are quantified by microscopic examination. [facility] Vital Signs Date Time Vital Sign Value Performing Clinician Facility 03-02-2025 11:33-0400 Body height 167.64 cm PHYSICIAN NO [facility] 03-02-2025 11:33-0400 Body mass index (BMI) [Ratio] 37.3 kg/m2 PHYSICIAN [facility] 03-02-2025 11:33-0400 Body temperature 98.3 [degF] PHYSICIAN NO [facility] 03-02-2025 11:33-0400 Body weight 105 kg PHYSICIAN NO [facility] 03-02-2025 11:33-0400 Diastolic blood pressure 68 mm[Hg] PHYSICIAN [facility] 03-02-2025 11:33-0400 Heart rate 107 /min PHYSICIAN NO [facility] 03-02-2025 11:33-0400 Respiratory rate 18 /min PHYSICIAN NO [facility] 03-02-2025 11:33-0400 SaO2% (BldA) [Mass fraction] 98 % PHYSICIAN NO [facility] 03-02-2025 11:33-0400 Systolic blood pressure 100 mm[Hg] PHYSICIAN NO [facility] 01-01-2025 09:50-0400 Body mass index (BMI) [Ratio] 38.41 kg/m2 Gilberto Magdi DO Work Phone: [facility] 01-01-2025 09:50-0400 Body weight 104.69 kg Gilberto Magdi DO Work Phone: [facility] 01-01-2025 09:50-0400 Diastolic blood pressure 74 mm[Hg] Gilberto Magdi DO Work Phone: [facility] 06-24-2025 09:50-0400 Systolic blood pressure 114 mm[Hg] Gilberto Fairbanks DO Work Phone: [facility] 04-08-2023 16:30-0400 Body height 165.1 cm Jenise Angela Other [facility] Other 04-08-2023 16:30-0400 Body mass index (BMI) [Ratio] 29.15 kg/m2 Jenise Angela Other [facility] Other 04-08-2023 16:30-0400 Body temperature 98 [degF] Jenise Angela Other [facility] Other 04-08-2023 16:30-0400 Body weight 79.47 kg Jenise Angela Other [facility] Other 04-08-2023 16:30-0400 Diastolic blood pressure 67 mm[Hg] Jenise Angela Other [facility] Other 04-08-2023 16:30-0400 SaO2% (BldA) [Mass fraction] 97 % Jenise Angela Other [facility] Other 04-08-2023 16:30-0400 Systolic blood pressure 102 mm[Hg] Jenise Angela Other [facility] Other 02-28-2023 17:00-0400 Body height 167.64 cm Jenise Angela Other [facility] Other 02-28-2023 17:00-0400 Body mass index (BMI) [Ratio] 28.08 kg/m2 Jenise Angela Other [facility] Other 02-28-2023 17:00-0400 Body temperature 97.7 [degF] Jenise Miller Other [facility] Other 02-28-2023 17:00-0400 Body weight 78.93 kg Jenise Miller Other [facility] Other 02-28-2023 17:00-0400 Diastolic blood pressure 72 mm[Hg] Jenise Israelmond Other [facility] Other 02-28-2023 17:00-0400 Respiratory rate 18 /min Jenise Israelmond Other [facility] Other 02-28-2023 17:00-0400 SaO2% (BldA) [Mass fraction] 98 % Jenise Israelmond Other [facility] Other 02-28-2023 17:00-0400 Systolic blood pressure 108 mm[Hg] Jenise Miller Other [facility] Other 09-25-2019 07:41-0400 Body Temperature 97.81 [degF] [facility] 09-25-2019 07:41-0400 BP Diastolic 64 mm[Hg] [facility] 09-25-2019 07:41-0400 BP Systolic 96 mm[Hg] [facility] 09-25-2019 07:41-0400 Pulse (Heart Rate) 80 /min [facility] 09-25-2019 07:41-0400 Pulse Oximetry 99 % [facility] 09-24-2019 09:00-0400 Respiratory Rate 16 /min [facility] 09-14-2019 17:18-0500 BMI (Body Mass Index) 28.29 kg/m2 [facility] 09-14-2019 17:18-0500 Body weight 77.11 kg [facility] 09-14-2019 17:18-0500 [facility] Encounter Date Encounter Type Care Provider Facility Start: 03-02-2025 End: 03-02-2025 ambulatory PHYSICIAN NO [facility] Work Phone: Start: 03-02-2025 End: 03-02-2025 Patient encounter procedure Leny Lira [employer] [facility] Work Phone: Start: 02-13-2025 End: 02-13-2025 [facility] Result Encounter Gilberto Magdi DO Work Phone: [facility] Unsolicited Start: 02-13-2025 End: 02-13-2025 [facility] Result Encounter Gilberto Magdi DO Work Phone: [facility] Unsolicited Start: 02-11-2025 End: 02-11-2025 [facility] Result Encounter Gilberto Magdi DO Work Phone: [facility] Unsolicited Start: 02-11-2025 End: 02-11-2025 [facility] Result Encounter Gilberto Magdi DO Work Phone: [facility] Unsolicited Start: 01-21-2025 End: 01-21-2025 ambulatory GILBERTO MAGDI Not Available Start: 01-01-2025 End: 01-01-2025 Patient encounter procedure Gilberto Magdi DO Work Phone: [facility] Comment on above: Encounter for IUD re moval; Pelvic pain in female Start: 01-01-2025 End: 01-01-2025 ambulatory GILBERTO MAGDI Not Available Start: 06-05-2024 End: [facility] Start: 05-24-2024 End: 05-24-2024 [facility] Result Encounter [...] 04-08-2023 End: 04-08-2023 ambulatory Jenise Miller Other [employer] Other Start: 04-08-2023 Office outpatient visit 15 minutes Jenise Angela [facility] Start: 02-28-2023 End: 02-28-2023 ambulatory Jenise Angela Other [facility] Other Start: 02-28-2023 Office outpatient visit 15 minutes Jenise Miller [facility] Start: 11-07-2022 End: 11-07-2022 ambulatory GERBER DOE . Facility:[facility] Start: 03-12-2022 End: 03-13-[address] GILBERTO FAIRBANKS . Facility:[facility] Start: 03-04-2022 End: 03-04-[address] GILBERTO FAIRBANKS . Facility:[facility] Start: 09-14-2019 End: 09-25-2019 Evaluation and management of inpatient [facility] Start: 09-14-2019 End: 09-25-2019 Evaluation and management of inpatient Lenovikas Lind Work Phone: [facility] Procedures Date Procedure Procedure Detail Performing Clinician Start: 03-02-2025 Quick Strep (POC) PHYSI FATUMA NO FAMILY Start: 02-13-2025 [facility] PREG QUANT HCG Core y Magdi DO Work Phone: Start: 02-11-2025 TB PREG QUANT HCG Core y Magdi DO Work Phone: Start: 01-01-2025 IUD REMOVAL Gilberto Fazi o DO Work Phone: Start: 05-24-2024 [facility] PREG QUANT HCG Core y Magdi DO Work Phone: Start: 05-22-2024 [facility] PREG QUANT HCG Core y Magdi DO Work Phone: Start: 09-17-2019 Urinalysis Torres Brown u Ciro Work Phone: Plan of Treatment Date Care Activity Detail Author Start: 03-11-2025 Influenza vaccination [facility] Start: 03-07-2025 End: 03-07-2025 ambulatory 03/07/2025 1:00 PM EDT Initial [facility] [address] [place] [address] [facility] Start: 03-07-2025 End: 03-07-2025 Professional / ancillary services management 03/07/2025 12:30 PM EDT Ancillary Procedure [facility] [address] [place] [address] [facility] Start: 03-04-2025 End: 03-04-2025 Patient encounter procedure [facility] Start: 01-21-2025 End: 01-21-2025 Professional / ancillary services management 01/21/2025 2:30 PM EDT Ancillary Procedure [facility] [address] [place] [address] [facility] Start: 01-01-2025 End: 07-03-2025 US Pelvis US Pelvis w/ TV Imaging Routine Pelvic pain in female Expected: 01/01/2025, Expires: 07/03/2025 [facility] Work Phone: Comment on above: Expected: 01/01/2025 , Expires: 07/03/2025 Start: 03-11-2024 Influenza vaccination Influenz a Vaccine (#1) [facility] Payers Date Payer Category Payer Blue Cross Blue [employer] [facility] [id number] 2023 Unknown [id number] 2022 Medicaid [id number] 2017 Medicaid [id number] 2017 Medicaid [employer] [place] [employer] MEDICAID xxxxxxxxxxx 2017-Present xxxxxxxxxxx [id number] 2003 Unknown [id number] 2003 Unknown [id number] 2003 Unknown [id number] 2003 Unknown [id number] 1984 Unknown [id number] 1984 Unknown [id number] 1959 Unknown [id number] Private Health Insurance [facility] [id number] Unknown [id number] Social History Date Type Detail Facility Start: 09-14-2019 End: 03-02-2025 Tobacco smoking status [facility] Never smoker [facility] Start: 09-14-2019 Alcohol intake Ex-drinker (finding) [facility] Start: 2005 Sex Assigned At Not on file [facility] Start: 06-23-2023 End: 01-01-2025 Sex Assigned At [facility] Reta Trekea Other Start: 05-10-2023 Tobacco use and exposure Smokeless tobacco non-user [facility] Start: 06-23-2023 End: 01-01-2025 Alcoholic beverage intake Lifetime non-drinker (finding) [facility] Start: 06-23-2023 End: 01-01-2025 History of Social function [facility] Sex Female (finding) [facility] Start: 2005 Sex Assigned At Female [facility] History of Present illness Narrative 01-01-2025 Mirela Mcnair LPN - 01/01/2025 9:30 AM EDT Note Date & Type Note Facility 01-01-2025 History of Presen t illness Narrative Associated Order(s): IUD Removal Post-Procedure Diagnose(s): Encounter for IUD removal Reason for Appointment: Patient ID: Tong Hinson is a 19 y.o. female who presents [...] nursing note reviewed. Exam conducted with a parts counter clerk present. Vitals: Estimated body mass index is [...] given: yes Instructions and paperwork completed: yes [place] protocol: Patient states understanding of procedure being [...] Gilberto Fairbanks DO documented in this encounter [facility] Evaluation note 04-08-2023 [...] exacerbation, unspecified whether persistent (ICD-10 - J45.901) [facility] Other Evaluation note 02-28-2023 Note Date & [...] Contact dermatitis home care material was printed [facility] Other Evaluation note Note Date & Type Note Facility Evaluation note Diagnosis Encounter for IUD removal Pelvic pain in female Unspecified symptom associated with female genital organs documented in this encounter [facility] Evaluation note Note Date & Type Note Facility Evaluation note Diagnosis Onset Date Resolution Cough noneactive March 02, 025 11:22am Sore throat noneactive March 02, 2025 11:22am [facility] Work Phone: History general Narrative - Reported Note Date & Type Note Facility History general Narrative - Reported Type Surgical History C section [facility] Other Reason for referral (narrative) Note Date & Type Note Facility Reason for referral (narrative) No reason for referral information available [facility] Work Phone: Summary Purpose Family History No Family History Records FoundNo Family History Records FoundNo Family History Records FoundNo Family History Records Found Advance Directives Documents on File Type Date Recorded 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 female school student resident of [facility] was brought to [facility] after patient had ingested handful tablets ofAdvil [...] . Patient is visiting her father in [facility] every other weekend and reportedly has good [...] <4 cigarettes daily. Disposition: Home Follow Up: [facility] - [address] [place] [address] Follow up on 10/05/2019 Appointment time: 11:00am with [place] for counseling; TITLE I INSTRUCTIONAL ASSISTANT was told to call day before discharge [facility] psychiatry appointment. MARLENI Discharge Diet: Additional [...] is packing her belongings. Smiling. Per the OMAR Lind will be paged to update him [...] 3:58 PM EDT 1558 Patient reports anxiety 12/18 and depression 09/17. Patient reports is worried about custody court date not knowing if the drill press hand will agree to let her dad be [...] EDT Psychiatry Progress Note Patient Name: Tong Hinson Admit Date: MR #: [id number] : 2005 Perpetual Assessment Tong Hinson is a 14 y.o. female was seen individually, case discussed with nursing staff, medical records were reviewed. Patient stated that she is anticipating some favorable answer from children's services chief nursing officer as, she had repeatedly mentioned about her [...] 5' 5 Wt 77.1 kg (170 lb) [id number]% BMI 28.29 kg/m Mental Status Evaluation: General [...] 1.59)* * Growth percentiles are based on [facility] (Girls, 2-20 Years) data. Current diet order: [...] 70gm Method for Estimating Needs: 1.1gm/kg adj Kris Zhao MS, RDN, LD Dietitian Office * Latoya Dallas MSW LSW - 09/24/2019 10:50 AM EDT Reviewed patient's case with Dr. Lind. Patient is making good progress with symptom management. Dr. Lind estimates that patient may discharge as soon as stable placement is available with confirmation from [facility] ([facility]). TITLE I INSTRUCTIONAL ASSISTANT is awaiting call from Aicha Ordoñez at [facility] confirm that safe placement for patient with her biological father has been resolved. 11:35am: SURINDER spoke to Aicha from [facility] who affirmed that patient's mother has finally consented to voluntarily allow patient to stay with her biological father Henok and step mother Sandee while she works a case plan with [facility]. Biological mother will retain custody in this process while SCCSoversees mother's behavior. Aicha did indicate that in [...] discharge home with dad tomorrow morning. 3:35pm: SURINDER spoke with patient's father to review the plan to pick patient up tomorrow morning. Father voiced an understanding of this plan and states that he will be at the hospital between 10-10:30am to pick patient up for discharge. instructional media services technician will continue to follow and assist with discharge planning. * Linda Bingham, LINER CHECKER - 09/24/2019 10:35 AM EDT [id number] Goal Group: PT out in lounge with peers when approached [...] sleeping and anxiety at bedtime , this adjusto writer operator administered Atarax 25 mg, patient tolerated well, patient thanked and returned to her room. * Marielos Cedeño RN - 09/23/2019 7:27 PM EDT 1800 Pt playing cards with male peers in dining area. Appropriately social, Pt dressed casually. 1999 Pt had no visitors this evening. 2130 Pt participated in Basic Manners group therapy session, keeping score for peers. Pt is easily frustrated and becomes impatient with peers frequently becoming loud, interruptive and attention seeking at times. 0 Pt requests Vistaril 25 mg PO for increased anxiety, Pt states this also helps her to sleep. 25 mg PO given for relief. 2220 Pt resting quietly at this time. * [...] EDT Psychiatry Progress Note Patient Name: Tong Hinson Admit Date: MR #: [id number] : 2005 Perpetual Assessment Tong Hinson is a 14 y.o. female was seen [...] Lind MD 09/23/2019 1:56 PM * Cynthia David, LINER CHECKER - 09/23/2019 10:30 AM EDT Goal Group: [...] herself and her child. * Celine Browning, HARRY - 09/23/2019 8:15 AM EDT 0815 Pt [...] nurse led group over unit rules in [facility] Sits quietly during group. Does make an occasional comment regarding rules, and appropriately takes a turn reading a rule. 0951 Pt sitting at table playing a card game with peers. 1000 Pt present in nurse led group over bullying. Pt participates appropriately. 1200 Pt's dad and step mom on unit visiting. Visitors updated of change to visitation. 1305 Received call from pt's guardian,mom, S[place]pring. Pts mom upset that she hasn't been contacted with any information regarding her daughter. Explained to pt's mother that we would have contacted herif needed, advised her to call tomorrow and speak with CPS and certified social workers in health care for clarification to her placement following discharge [...] phone. I want to call my CPS pillowcase sewer .Pt attempted to contact Aicha, JUAN CARLOS, unable to make contact. . 1455 Pt [...] supervised during visitation. Pt had participated in [facility] exercise therapy session and was appropriately social [...] here on the unit. Offered emotional support. 2255 Pt resting quietly in bed at this time. * Leno Lind MD - 09/22/2019 4:33 PM EDT Psychiatry Progress Note Patient Name: Tong Hinson Admit Date: MR #: [id number] : 2005 Perpetual Assessment Tong Hinson is a 14 y.o. female was seen [...] Lind MD 09/22/2019 4:33 PM * Linda Bingham, LINER CHECKER - 09/22/2019 3:15 PM EDT 2281-4581 Recreation Therapy: [facility] when approached for group, willing to participate. Group was taught new leisure skill of large group game of LCR(Left Center Right), to which pt was familiar with. PT recalled directions and required no assist or limits be set. Poor frustration tolerance displayed with peers. Benefits of leisure presented, to which pt not interested. * Linda Bingham, LINER CHECKER - 09/22/2019 11:00 AM EDT 6630-1737 Goal group: Pt out in [facility] with peers, playing cards, staff supervising, when [...] to control and lead group. * Celine Browning, HARRY - 09/22/2019 8:24 AM EDT 0824 Pt [...] EDT Psychiatry Progress Note Patient Name: Tong Hinson Admit Date: MR #: [id number] : 2005 Perpetual Assessment Tong Hinson is a 14 y.o. female was seen [...] attends 15:30 therapy group 16:30 eating in [facility] with peers 16:45 one on one interaction takes place in [facility]. Patient (pt) is casually dressed. Pt states sleep was good. Pt states appetite good Pt denies HI/SI/voices. Pt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 self injurious behavior: Cutting; Outpatient linkage: None per patient; mother reports patient goes to [facility] and sees Peggy for counseling Patient Psychiatric Treatment: Past diagnoses: Adjustment disorder, depressive disorder; Past medications: None; Past hospitalizations: None; Past suicide attempts: History of past attempt of cutting; Past self injurious behavior: Cutting; Outpatient linkage: None per patient; mother reports patient goes to [facility] and sees Peggy for counseling Patient Substance Abuse History: None [...] Friends, Health care provider Collateral Contacts: Kobe Hinson (Mother - [phone]) Name and Contact of Collateral Provider: [employer] Joya (Mother - [phone]) PATIENT GOALS FOR TREATMENT: Patient stated goals for treatment are to feel better. CLINICAL SUMMARY: Per H&P: Tong Hinson is a 14 y.o. female school student resident of [facility] was brought to [facility] after patient had ingested handful tablets of [...] . Patient is visiting her father in [facility] every other weekend and reportedly has good [...] 09/15/2019 Time: 5:25 PM Patient Name: Tong Hinson Date of : 2005 Sex: Female Admit Date/Time: 09/14/2019 4:45 PM Patient Active Problem List Diagnosis Date Noted Major depression 09/14/2019 Diagnosis Depressive disorder Overdose of pills Status post section Patient Active Problem List Diagnosis Date Noted Major depression 09/14/2019 Reason for Hospitalization Reason for Hospitalization: Depression, Suicidal ideation Expected Discharge Date: ELOS: 11-14 Precautions Precautions: Suicide, Unpredictable Patient Presenting Issues: [...] benefit obtained Additional Comments: Physician, Registered Nurse, Compensation Vice President, Adjunct Therapist included in treatment team discussion. [...] Pt claims her father is working with [employer] ADDITIONAL INFORMATION: Pt was pleasant and cooperative. Shares she spends most of her times with her 2 year old son. States she is no longer in a relationship with the baby's father, but they do share custody. Pt states she works at [employer] to support herself and her child. Pt [...] 09/14/2019 Time: 12:41 PM Patient Name: Tong Hinson Date of : 2005 Sex: Female Prescreener Caller Information: Latoya Augustine Referral Source: ([facility]) Diagnosis: Major Depression Presenting Problem/Chief Complaint: suicide attempt by ingesting NSAIDs Medical Status: Stable Functional Status: Independent Medication Compliant: No Reason Not Medication Compliant: Other (Comment) Insurance Information/Precertification Completed: No Case Reveiwed With: Dr. Lind Accepted for Admission: Yes Admitting Physician: Dr. Lind Patient (Pt) presented to [facility] after reportedly ingesting NDAIDs in a suicide attempt. Júnior Thomson RN Clinical Lead on [facility] Dr Lind has accepted Pt and will go to room [facility]. Bed requested, Prescreen complete. SURINDER Whyte documented in this encounter Care Teams (unrecognized sec tion and content) Copier Operator Relationship Specialty Start Date End Date Gilberto Fairbanks, DO [address] [place] [address] PCP - [employer] 07/11/23 Copier Operator Relationship Specialty Start Date End Date Gilberto Fairbanks, DO [address] [place] [address] PCP - [employer] 07/11/23 Copier Operator Relationship Specialty Start Date End Date Gilberto Fairbanks, DO [address] [place] [address] PCP - [employer] 07/11/23 Team Status: Active Member Role Status Dates PHYSICIAN NO FAMILY Primary Care Provider Active Team Status: Inactive Member Role Status Dates PHYSICIAN NO FAMILY Primary Care Provider Active Start: March 02, 2025 End: March 02, 2025 Leny Amezcua APRN Attending Provider Active S tart: March 02, 2025 End: March 02, 2025 Goals (unrecognized section and content) Goals may be documented in a n alternate section FOR RECORDS PERTAINING TO PATIENTS WHO ARE [...] BE BASED ON THE PRIMARY CLINICAL RECORDS. [facility]. provides no warranty or guarantee of the accuracy or completeness of information in this document.
--- OUTSIDE RECORDS SUMMARY | 2025-03-02 16:35 | XMS_ITS | Encounter Summary ---
Author Organization [facility] Address [address] [place] [address] Care Team Providers Care Liquid Yeast Supervisor Name Role Phone Eric Fairbanks DO Unavailable Encounter Details Date Type Department Care Team (Late Contact Info) Description 05/11/2023 Clinisync Result Encounter [facility] External Department Unsolicited Eric Fairbanks DO [address], [place] [id number] Social History Tobacco Use Types Packs/Day Years [...] 12:30 PM EDT Ancillary Procedure [facility] [place] [facility] [place] [address] 03/07/2025 1:00 PM EDT Initial [facility] [place] [facility] [place] [address] documented as of this encounter Procedures Procedure Name Priority Date/Time Associated Diagnosis Comments US PELVIS TRANSVAGINAL 05/11/2023 4:26 PM EDT documented in this encounter Results * US PELVIS TRANSVAGINAL (05/11/2023 4:26 PM EDT) Anatomical Region Laterality Modality Other 05/11/2023 4:26 PM EDT Narrative 05/11/2023 4:26 PM EDT [address] [address] Ultrasound Report Signed Patient: Phill Arreguin MR#: [id number] : 2005 Acct:[id number] Age/Sex: 17 / F ADM Date: 05/11/23 Loc: US Attending Dr: Eric Fairbanks D.O. Ordering Physician: Eric Fairbanks D.O. Date of Service: 05/11/23 Procedure(s): US pelvis transvaginal Accession Number(s): [id number] cc: Eric Fairbanks D.O.; Physician,Non-Staff Álvaro [address] [address] Patient Name: PHILL ARREGUIN MRN: [id number] date: 2005 Sex: F Assigned Patient Location: US Current Patient Location: US Accession/Order Number: [id number] Exam Date: 05/11/2023 14:48 Report Date: 05/11/2023 [...] Castro Signed By: 05/11/238 DD/ 25 TD/TT: Hazardous Waste Technician: Procedure Note Radiology, Radiologist, MD - 05/11/2023 [place] [address] Ultrasound Report Signed Patient: Phill Arreguin AMR#: [id number] : 2005Acct:[id number] Age/Sex: 17 / FADM Date: 05/11/23 Loc: US Attending Dr: Eric Fairbanks D.O. Ordering Physician: Eric Fairbanks D.O. Date of Service: 05/11/23 Procedure(s): US pelvis transvaginal Accession Number(s): [id number] cc: Eric Fairbanks D.O.; Physician,Non-Staff Álvaro [address] [place] [id number] Patient Name: PHILL ARREGUIN MRN: [id number] date: 2005 Sex: F Assigned Patient Location: US Current Patient Location: US Accession/Order Number: [id number] Exam Date: 05/11/2023 14:48 Report Date: 05/11/2023 [...] 05/11/2023 16:26 Dictated By: Cuauhtemoc Castro Signed By:05/11/231627 DD/ 25 TD/TT: Hazardous Waste Technician: Eric Fairbanks DO [facility] Final Result documented in this encounter Visit Diagnoses Not on filedocumented in this encounter Care Teams Liquid Yeast Supervisor Relationship Specialty Start Date End Date Eric Fairbanks DO [address] [place] [id number] PCP - [employer] 07/11/23 documented as of this encounter
[2025-03-02 16:37] VITALS: BP 126/94; PULSE 106; TEMP 37.1; O2SAT 97; BMI 37.1
--- NOTE | 2025-03-02 17:29 | ED_ITS ---
HPI - General Chief complaint: Vaginal Bleeding Stated complaint: 7 wks preg, vaginal bleeding Time Seen by Provider: 03/02/25 16:36 Source: patient Mode of arrival: walk-in Limitations: no limitations History of Present Illness HPI Narrative: A 19-year-old female at approximately 7 weeks gestation presents to the emergency department with vaginal bleeding and suprapubic cramping that began earlier today. She reports an increase in bleeding since onset, though she is not saturating pads and denies passing clots or tissue. She has no associated symptoms such as dizziness, syncope, shoulder pain, nausea, vomiting, or breast tenderness. Her previous was full-term without complications. Related Data Home Medications ?Medication ?Instructions ?Recorded ?Confirmed No Known Home Medications 03/02/2502/09 Allergies Allergy/AdvReac Type Severity Reaction Status Date / Time No Known Drug Allergies Allergy Verified 05/19/23 14:08 [facility] Medical History (Updated 03/02/25 @ 21:50 by ANITRA PEREZ) Depression ?F32.A - Depression, unspecified (ICD-10) Anxiety ?F41.9 - Anxiety disorder, unspecified (ICD-10) COVID-19 ?U07.1 - COVID-19 (ICD-10) Asthma ?J45.909 - Unspecified asthma, uncomplicated (ICD-10) Heartburn ?R12 - Heartburn (ICD-10) GERD (gastroesophageal reflux disease) ?K21.9 - Gastro-esophageal reflux disease without esophagitis (ICD-10) Surgical History (Updated 05/19/23 @ 14:12 by Celine Kasper NP) History of section ?Z98.891 - History of uterine scar from previous surgery (ICD-10) Family History (Updated 05/19/23 @ 14:12 by Celine Kasper NP) Other Family history of breast cancer Family history of diabetes mellitus Family history of hypertension Family history of myocardial infarction Family history of stroke Social History (Updated 05/19/23 @ 14:09 by Celine Kasper NP) Within the past year, how often did you have a drink containing alcohol: monthly or less Smoking status: Former smoker Non-prescribed substance use: denies use 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 Patient resting and updated. Time: 19:30 Reevaluation #2: Updated patient on waiting on US reading. No worsening symptoms. Resting in her room. Called Radiology to get read, radiologist reports images have been received. Time: 20:38 Time: 21:36 Additional Reevaluation(s): Contacted radiology regardign US report. Radiologist reportedly contacted. Vital Signs Vital signs: Vital Signs Temperature 98.8 F 03/02/25 16:37 Pulse Rate 106 H 03/02/25 16:37 Respiratory Rate 18 03/02/25 16:37 Blood Pressure 126/94 H 03/02/25 16:37 Pulse Oximetry 97 03/02/25 16:37 Oxygen Delivery Method Room Air 03/02/25 16:37 Temperature 98.8 F 03/02/25 16:37 Pulse Rate 74 03/02/25 21:59 Respiratory Rate 16 03/02/25 21:59 Blood Pressure 124/88 03/02/25 21:59 Pulse Oximetry 97 03/02/25 21:59 Oxygen Delivery Method Room Air 03/02/25 16:37 MDM - OB/Uterine Contractions MDM Narrative Medical decision making narrative: A 19-year-old female at approximately 7 weeks gestation presents to the emergency department with vaginal bleeding and suprapubic cramping that began earlier today. She reports an increase in bleeding since onset, though she is not saturating pads and denies passing clots or tissue. She has no associated symptoms such as dizziness, syncope, shoulder pain, nausea, vomiting, or breast tenderness. Her previous was full-term without complications. Of note, she had a positive test a few weeks ago with a quantitative hCG of 300 at that time. Given her current symptoms, the differential diagnosis includes threatened , early intrauterine , and ectopic . The primary concern is to rule out ectopic . A quantitative 14,563 hCG and transvaginal ultrasound were ordered to assess location and viability. Single IUP with subchorionic bleed noted. no ectopic gestational age 5 weeks 4 days based on sac diameter RH factor is O + The patient is currently hemodynamically stable, management at this time includes heavy lifting pelvic rest for 1 week. I will give her a work note. She is to have her hCG rechecked on Tuesday and follow-up with OB as discussed. She was cautioned to return to the emergency department immediately for worsening vaginal bleeding (soaking more than 1 pad per hour, passing large clots, or feeling lightheaded/dizzy), severe abdominal or pelvic pain, fever, chills, fainting, or any other new or concerning symptoms. Follow up with your AIRCRAFT SERVICER as instructed for ongoing care and monitoring. She voices understanding of follow up and precautions. Discussed possibility of a miscarriage and symptoms to expect as well. Medical Records Attestation: I reviewed the patient's medical records. Lab Data Attestation: I reviewed the patient's lab results. Labs: Lab Results 03/02/25 03/02/25 Range/Units 17:05 17:20 WBC 8.3 (4.0-11.0) 10^3/uL RBC 4.97 (4.20-5.40) 10^6/uL Hgb 13.9 (12.0-16.0) g/dL Hct 40.2 (36.0-48.0) % MCV 80.9 L (81.0-99.0) fL MCH 28.0 (26.7-34.0) pg MCHC 34.6 (29.9-35.2) g/dL RDW 13.0 (11.0-15.0) % Plt Count 291 (150-450) 10^3/uL MPV 10.3 (9.5-13.5) fL Neut % (Auto) 76.3 H (43.0-75.0) % Lymph % (Auto) 11.8 L (20.5-60.0) % [place] % (Auto) 10.2 (1.7-12.0) % Eos % (Auto) 1.0 (0.9-7.0) % Baso % (Auto) 0.5 (0.2-2.0) % Neut # (Auto) 6.3 (1.4-6.5) 10^3/uL Lymph # (Auto) 1.0 L (1.2-3.8) 10^3/uL [place] # (Auto) 0.9 H (0.3-0.8) 10^3/uL Eos # (Auto) 0.1 (0.0-0.7) 10^3/uL Baso # (Auto) 0.0 (0.0-0.1) 10^3/uL Abs Immat Gran (auto) 0.02 (0.00-0.03) 10^3/uL Imm/Tot Granulo (auto) 0.2 (0.0-0.5) % Sodium 137 (136-145) mmol/L Potassium 3.8 (3.5-5.1) mmol/L Chloride 101 (98-107) mmol/L Carbon Dioxide 26.6 (21.0-32.0) mmol/L Anion Gap 13.2 BUN 5.0 L (7.0-18.0) mg/dL Creatinine 0.56 (0.55-1.02) mg/dL Est GFR ( Amer) >60 (>=60 mL/min/1.73m^2) Est GFR (Non-Af Amer) >60 (>=60 mL/min/1.73m^2) BUN/Creatinine Ratio 8.9 Glucose 87 (74-106) mg/dL Calcium 8.8 (8.5-10.1) mg/dL HCG, Quant 47704 mIU/mL Urine Color Lt. yellow (YELLOW) Urine Clarity Clear (CLEAR) Urine pH 7.5 (5.0-9.0) Ur Specific [place] 1.015 (1.005-1.025) Urine Protein Negative (NEG/TRACE) mg/dL Urine Glucose (UA) Negative (NEGATIVE) mg/dL Urine Ketones 15 A (NEGATIVE) mg/dL Urine Occult Blood Large A (NEGATIVE) Urine Nitrite Negative (NEGATIVE) Urine Bilirubin Negative (NEGATIVE) Urine Urobilinogen 1.0 (0.2-1.0) EU/dL Ur Leukocyte Esterase Negative (NEGATIVE) Urine RBC 2-5 A (0-2) #/HPF Urine WBC None seen (NONE SEEN) #/HPF Ur Squamous Epith Cells Few A (NONE/RARE) #/LPF Urine Crystals None seen (None Seen) #/HPF Urine Bacteria Trace A (NONE SEEN) #/HPF Urine Casts None seen (NONE SEEN) #/LPF Urine Mucus None seen (NONE SEEN) Blood Type O Positive Imaging Data US - abdomen: Attestation: I have reviewed the pertinent imaging results. Radiologist's impression: Read by Dr. Milad MD. Received in the department at 9:48 PM by fax Assessment: 1 single IUP identified 2 no heart rate seen at this time 3 the estimated gestational sac is 5 weeks and 4 days based on mean sac diameter For subchorionic bleed noted to measure 20 x 15 x 7 mm 5 no features of ectopic 6 no right or left ovarian torsion 7 no free fluid in the pelvis Discharge Plan Discharge Stand Alone Forms: Work/School Release Chief Complaint: Vaginal Bleeding Clinical Impression: Miscarriage, threatened, early , Abnormal vaginal bleeding, Subchorionic hematoma in first trimester Patient Disposition: Home, Self-Care Time of Disposition Decision: 22:00 Condition: Good Prescriptions / Home Meds: No Action No Known Home Medications Print Language: [place] Citizen Instructions: Threatened Miscarriage (ED) Additional Instructions: Return with worsening bleeding soaking a pad an hour or severe pain. Follow up with OB as scheduld this week for repeat HCG quant. Quant today is 14,563, RH blood type is O + Rx outpatient to get HCG quant ordered for Tuesday. Referrals: Your OB [Other] - 1 week Physician,Non-Staff, [Primary Care Provider] - 1 week Discharge Date/Time: 03/02/25 22:04
[2025-03-02 17:30] LABS: Hematocrit 40.2 % (36.0-48.0); Hemoglobin 13.9 g/dL (12.0-16.0); Immature Granulocytes Abs Auto 0.02 10^3/uL (0.00-0.03); Immature Granulocytes Pct Auto 0.2 % (0.0-0.5); Lymphocytes Absolute Auto 1.0 10^3/uL (1.2-3.8); Mean Corpuscular HGB Conc 34.6 g/dL (29.9-35.2); Mean Corpuscular Hemoglobin 28.0 pg (26.7-34.0); Mean Corpuscular Volume 80.9 fL (81.0-99.0); Platelet Count 291 10^3/uL (150-450); Red Blood Count 4.97 10^6/uL (4.20-5.40); White Blood Count 8.3 10^3/uL (4.0-11.0)
[2025-03-02 17:30] LABS: Glucose Urine UA NEGATIVE (NEGATIVE)
[2025-03-02 17:39] LABS: Cast Seen? NONE SEEN #/LPF (NONE SEEN); Crystals Seen? None Seen #/HPF (None Seen)
[2025-03-02 18:10] LABS: Anion Gap 13.2; Blood Urea Nitrogen 5.0 mg/dL (7.0-18.0); Calcium 8.8 mg/dL (8.5-10.1); Carbon Dioxide 26.6 mmol/L (21.0-32.0); Chloride 101 mmol/L (98-107); Estimated GFR (African America >60 (>=60 mL/min/1.73m^2); Estimated GFR (Non-African Ame >60 (>=60 mL/min/1.73m^2); Glucose 87 mg/dL (74-106); Potassium 3.8 mmol/L (3.5-5.1); Sodium 137 mmol/L (136-145)
[2025-03-02 21:59] VITALS: BP 124/88; PULSE 74; O2SAT 97
== END 2025-03-02 22:04 | disposition home or self-care (01) ==
PROVIDERS: Physician Assistant; Emergency Provider Student in an Organized Health Care Education/Training Program
DX: O20.0 Threatened abortion (principal); O20.8 Other hemorrhage in early pregnancy; Z87.891 Personal history of nicotine dependence; Z3A.01 Less than 8 weeks gestation of pregnancy
CPT/HCPCS: 36415; 76817; 80048; 81001; 84702; 85025; 86900; 86901; 99284

== ENCOUNTER 2025-03-04 11:38 | Outpatient (OUT) | payer OTHER, SELFPAY ==
--- OUTSIDE RECORDS SUMMARY | 2025-03-04 11:41 | XMS_ITS | Clinical Summary ---
Author Organization [facility] Address [id number] [address] [place] [address] Care Team Providers Care Business Enterprise Officer Name Role Phone No Pcp, No Pcp [...] MEDICAID [employer] MED[employer] Care Teams Business Enterprise Officer Relationship Specialty Start Date End Date No Pcp, [place] [address] PCP - General Family Medicine 02/04/21
--- OUTSIDE RECORDS SUMMARY | 2025-03-04 11:41 | XMS_ITS | Encounter Summary ---
Author Organization [facility] Address [address] [place] [address] Care Team Providers Care Environmental Services Aide Name Role Phone Gilberto Fairbanks DO Unavailable Encounter Details Date Type Department Care Team (Late Contact Info) Description 01/01/2025 Abstract [facility] [place]EL [address] [place] [address] Gilberto Fairbanks DO [address], [place] [id number] Social History Tobacco Use Types Packs/Day Years [...] 12:30 PM [place] [id number] 03/07/2025 1:00 PM EDT Initial [facility] [place]EL [address] [place] [address] documented as of this encounter Visit Diagnoses Not on filedocumented in this encounter Care Teams Environmental Services Aide Relationship Specialty Start Date End Date Gilberto Fairbanks DO [address], [place] [id number] PCP - [place] [employer] 07/11/23 documented as of this encounter
--- OUTSIDE RECORDS SUMMARY | 2025-03-04 11:41 | XMS_ITS | Clinical Summary ---
Author Organization [facility] Address [address] [place] [address] Care Team Providers Care Cane Packer Name Role Phone Unavailable Primary Care Provider Unavailabl e Allergies Active Allergy Reactions Criticality Noted Date Comments Lactose Medium 09/14/2019 diarrhea Medications No known medications Encounters Date Type Department Care Team Description 02/13/2025 Clinisync Result Encounter [facility] External Department Unsolicited Gilberto Fairbanks DO 02/11/20[place] [address] Lilian Lawson LPN 02/11/2025 Clinisync Result Encounter [facility] External Department Unsolicited Gilberto Fairbanks, 02/11/2025 Telephone [facility] [place] [facility] [address] [place] [address] Radha Ballesteros MA 01/25/2025 Telephone [facility] [facility] [address] [place] [address] Antonia Campuzano LPN 01/24/2025 Results [place] [address] Antonia Campuzano LPN US Pelvis w/ TV 01/21/2025 2:30 PM EDT [place] [address] Pelvic pain in female 01/01/2025 9:30 AM EDT Procedure Visit [facility] [place] [facility] [address] [place] [address] Gilberto Fairbanks DO Encounter for IUD removal; Pelvic pain in female 01/01/2025 [place] [address] Gilberto Fairbanks DO from Last 3 Months [...] 12:30 PM [place] [address] 03/07/2025 1:00 [place] [address] Health Maintenance Due Date Last Done Comments [...] given: yes Instructions and paperwork completed: yes [place] protocol: Patient states understanding of procedure [...] al Result from Last 3 Months Insurance [facility] [address]
--- OUTSIDE RECORDS SUMMARY | 2025-03-04 11:41 | XMS_ITS | Encounter Summary ---
Author Organization [facility] Address [address] [place] [address] Care Team Providers Care Conductor Sleeping Car Name Role Phone Eric Fairbanks DO Unavailable Encounter Details Date Type Department Care Team (Late Contact Info) Description 05/11/2023 Clinisync Result Encounter [facility] External Department Unsolicited Eric Fairbanks DO [address], [place] [id number] Social History Tobacco Use Types Packs/Day Years [...] 12:30 PM EDT Ancillary Procedure BA[facility] [place] [address] 03/07/2025 1:00 PM EDT Initial [facility] [place] [address] documented as of this encounter Procedures Procedure Name Priority Date/Time Associated Diagnosis Comments US PELVIS TRANSVAGINAL 05/11/2023 4:26 PM EDT documented in this encounter Results * US PELVIS TRANSVAGINAL (05/11/2023 4:26 PM EDT) Anatomical Region Laterality Modality Other 05/11/2023 4:26 PM EDT Narrative 05/11/2023 4:26 PM EDT [address] [address] Ultrasound Report Signed Patient: Phill Arreguin MR#: [id number] : 2005 Acct:[id number] Age/Sex: 17 / F ADM Date: 05/11/23 Loc: US Attending Dr: Eric Fairbanks D.O. Ordering Physician: Eric Fairbanks D.O. Date of Service: 05/11/23 Procedure(s): US pelvis transvaginal Accession Number(s): [id number] cc: Eric Fairbanks D.O.; Physician,Non-Staff Álvaro [address] [address] Patient Name: PHILL ARREGUIN MRN: [id number] date: 2005 Sex: F Assigned Patient Location: US Current Patient Location: US Accession/Order Number: [id number] Exam Date: 05/11/2023 14:48 Report Date: 05/11/2023 [...] Castro Signed By: 05/11/238 DD/ 25 TD/TT: Teenage Babysitter: Procedure Note Radiology, Radiologist, MD - 05/11/2023 [place] [address] Ultrasound Report Signed Patient: Phill Arreguin AMR#: [id number] : 2005Acct:[id number] Age/Sex: 17 / FADM Date: 05/11/23 Loc: US Attending Dr: Eric Fairbanks D.O. Ordering Physician: Eric Fairbanks D.O. Date of Service: 05/11/23 Procedure(s): US pelvis transvaginal Accession Number(s): [id number] cc: Eric Fairbanks D.O.; Physician,Non-Staff Álvar[place] [address] [place] [id number] Patient Name: PHILL ARREGUIN MRN: [id number] date: 2005 Sex: F Assigned Patient Location: US Current Patient Location: US Accession/Order Number: [id number] Exam Date: 05/11/2023 14:48 Report Date: 05/11/2023 [...] Cuauhtemoc Castro Signed By:05/11/231627 DD/ 25 TD/TT: Teenage Babysitter: Eric Fairbanks DO [facility] Final Result documented in this encounter Visit Diagnoses Not on filedocumented in this encounter Care Teams Conductor Sleeping Car Relationship Specialty Start Date End Date Eric Fairbanks DO [address] [place] [id number] PCP - Nikita Commercial 07/11/23 documented as of this encounter
--- OUTSIDE RECORDS SUMMARY | 2025-03-04 11:41 | XMS_ITS | Encounter Summary ---
Author Organization [facility] Address [address] [place] [address] Care Team Providers Care Assistive Technology Trainer Name Role Phone Unavailable Primary Care Provider Unavailabl e Encounter Details Date Type Department Care Team (Late Contact Info) Description 01/24/2025 Results Follow-Up [facility] [address] [place] [address] Antonia Campuzano LPN [address] [place] [address] [place] Pelvis w/ TV Social [...] EDT Ancillary Procedure [facility] [address] [facility] [place] [address] 03/07/2025 1:00 PM EDT Initial [facility] [address] [facility] [place] [address] documented as of this encounter Visit Diagnoses Not on filedocumented in this encounter
== END 2025-03-04 11:39 | disposition home or self-care (01) ==
LOC: LAB 11:39
PROVIDERS: Visit Provider Physician Assistant
DX: O20.0 Threatened abortion (principal)
CPT/HCPCS: 36415; 84702

== ENCOUNTER 2025-03-21 11:44 | Outpatient (OUT) | payer OTHER, SELFPAY ==
--- OUTSIDE RECORDS SUMMARY | 2025-03-21 12:18 | XMS_ITS | CCD ---
Author Organization [facility] Care Team Providers Care Sports Agent Name Role Phone LENO LIND Admitting Unavailable LENO LIND Attending Unavailable SHANNON GARRISON Consulting Unavailable NO, PHYSICIAN Primary Care Unavailable No, Physician Primary Care Provider Unavailgeovanna DOE ., GERBER Admitting Unavailable ERNESTO ., LANDY Consulting Unavailable REQUEST, DR ELLIS LISTED Primary Care Unavaila kenji DOE ., GERBER Attending Unavailable NADER ., GERBER Consulting Unavailable MAGDI ., DR REYES Attending Unavailable MAGDI ., DR REYES Admitting Unavailable [place], DR GEORGIA Portillo Consulting Unavailable MAGDI ., DR REYES Consulting Unavailable MAGDI ., DR REYES Attending Unavailable MAGDI ., DR REYES Consulting Unavailable MAGDI ., DR REYES Admitting Unavailable Jenise Miller Unavailable Gilberto Fairbanks DO Unavailable Latoya SCHMIDT Attending Unavailable Unavailable Primary Care Provider Unavailgeovanna SARMIENTO FAMILY, PHYSICIAN Primary Care Provider Unava ilable Leny Amezcua APRN Attending Provider [phone] MAR DUARTE Attending Unavailable GILBERTO FAIRBANKS Referring Unavailable GILBERTO FAIRBANKS Attending Unavailable Allergies Allergy Classification Reported Allergen(s) Allergy Type Date of Onset Reaction(s) Facility (9 sources) Lactose; Translations: [Unknown] Drug Allergy 09-14-2019 [facility] Three Repository Medications Current Medications Medication Drug Class(es) [...] 1 capsule by mouth once daily Pnv [id number] 90 mg iron- 1 mg-200 mg capsule [...] as needed acetaminophen (TYLENOL) tablet 650 mg [id number] 200 actuat albuterol 0.09 mg/actuat metered dose [...] (acute) exacerbation Chronic Contraceptive and procreative management (3 sources) Patient encounter status; Translations: [Encounter for removal of intrauterine contraceptive device] 01-01-2025 Episodic Hemorrhage during ; abruptio placenta; placenta previa (2 sources) Vaginal bleeding complicating early ; Translations: [Hemorrhage in early , unspecified] 03-14-2025 Episodic Immunizations and screening for infectious disease [...] Name Value Interpretation Reference Range Facility US OB TRANSVAGINALon 025 US OB TRANSVAGINAL FINDINGS: Comparison March 07, 2025 Persistent intrauterine gestational sac with yolk sac, gestational sac measuring 2.1 cm, which would be consistent with normal growth from the prior exam, currently 6 weeks and 4 days (estimated delivery November 03, 2025). No pole is identified. A small subchronic fluid collection remains. Closed cervix, 4.2 cm length. IMPRESSION: Single intrauterine gestational sac, no pole; however, appropriate gestational sac growth is demonstrated from the exam one week earlier. Correlate with beta hCG and follow-up imaging as clinically indicated. TRANSCRIBED BY: ELECTRONICALLY SIGNED BY: Mac Chen MD Normal Not Available Comment on above: Order Comment: US OB VIABILITY PLEASE PERFORM TRANSVAGINAL ULTRASOUND IF INDICATED No LMP recorded. US OB TRANSVAGINALon 025 US OB TRANSVAGINAL FINDINGS: Single intrauterine gestational sac with yolk sac and no pole. Gestational sac measures 1.6 cm consistent with a 5 week and 6 day gestational age which result in estimate date of delivery of November 01, 2025. Small implantation bleed anterior body not localizing near the internal cervical os, closed. No adnexal mass or pelvic fluid. IMPRESSION: Intrauterine gestational sac can be consistent with a viable early intrauterine , 5 weeks and 6 days, estimated date of delivery November 01, 2025. Recommend follow-up examinations as clinically indicated. TRANSCRIBED BY: ELECTRONICALLY SIGNED BY: Mac Chen MD Normal Not Available Comment on above: Order Comment: US OB TRANSVAGINAL No LMP recorded. No Panel InformationOrdered By: Leny Amezcua on 03-02-2025 Quick Strep (POC) [facility] PREG QUANT HCGon 025 HCG QUANTITATIVE 314 mIU/mL [facility] Comment on above: 5-50 0.2-1 WEEK 50-500 1-2 WEEKS 100-5,000 2-3 WEEKS 500-10,000 3-4 WEEKS 1,000-50,000 4-5 WEEKS 10,000-100,000 5-6 WEEKS 15,000-200,000 6-8 WEEKS 10,000-100,000 2-3 [facility] PREG QUANT HCGon 025 HCG QUANTITATIVE 127 mIU/mL [facility] Comment on above: 5-50 0.2-1 WEEK 50-500 1-2 WEEKS 100-5,000 2-3 WEEKS 500-10,000 3-4 WEEKS 1,000-50,000 4-5 WEEKS 10,000-100,000 5-6 WEEKS 15,000-200,000 6-8 WEEKS 10,000-100,000 2-3 MONTH[facility] US PELVIC COMPLETE W/ TVon [...] given: yes Instructions and paperwork completed: yes [place] protocol: Patient states understanding of procedure being [...] office for annual exam unless needed otherwise [facility] PREG QUANT HCGon 024 HCG QUANTITATIVE <1 mIU/mL [facility] Comment on above: 5-50 0.2-1 WEEK 50-500 1-2 WEEKS 100-5,000 2-3 WEEKS 500-10,000 3-4 WEEKS 1,000-50,000 4-5 WEEKS 10,000-100,000 5-6 WEEKS 15,000-200,000 6-8 WEEKS 10,000-100,000 2-3 [facility]ANT HCGon 024 HCG QUANTITATIVE <1 mIU/mL [facility] Comment on above: 5-50 0.2-1 WEEK 50-500 1-2 WEEKS 100-5,000 2-3 WEEKS 500-10,000 3-4 WEEKS 1,000-50,000 4-5 WEEKS 10,000-100,000 5-6 WEEKS 15,000-200,000 6-8 WEEKS 10,000-100,000 2-3 MONTHS [facility] COVID Quick Testingon 2022 Result Negative [facility] Other CULTURE WOUNDon 11-07-2022 CULTURE WOUND Culture Observations : ANAEROBE PRESENT. Isolate 1 Peptostreptococcus anaerobius Light growth of Normal [facility] Comment on above: Result Comment: EVID ENCE BASED PRACTICE BY [facility] HAS DEMONSTRATED THAT PEPTOSTREPTOCOCCUS SPECIES ARE ROUTINELY SUSCEPTIBLE TO PIPERACILLIN-TAZOBACTAM, CEFOXITIN, ERTAPENEM, IMIPENEM, METRONIDAZOLE AND VARIABLY RESISTANT TO CLINDAMYCIN. Performed By: #### W OUNDCX #### [facility] [address] [place] [address] Dr. Mayra Barajas US PELVIS AND TRANSVAGon [...] [place] CHANG Date: 2022-03-12 17:19 Normal [facility] CHLAMYDIA/GONOCOCCUS GEOVANNA (SW AB/URINE/PAPon 03-08-2022 Chlamydia trachomatis, GEOVANNA Negative Normal Negative [facility] Comment on above: Performed By: #### C T/NGNA #### [facility] [address] [place] [address] Dr. Mayra Barajas Neisseria gonorrhoeae, GEOVANNA Negative Normal Negative [facility] Comment on above: Performed By: #### C T/NGNA #### [facility] [address] [place] [address] Dr. Mayra Barajas VAGINITIS/VAGINOSIS DNA PROB Charles 03-07-2022 Ginger species Negative Normal Negative [facility] Comment on above: Performed By: #### V AGINT #### [facility] [address] [address] [address] Mayra Barajas Gardnerella vaginalis Positive Abnormal Negative [facility] Comment on above: Performed By: #### V AGINT #### [facility] [address] [address] [address] Mayra Barajas Trichomonas vaginalis Negative Normal Negative [facility] Comment on above: Performed By: #### V AGINT #### [facility] [address] [address] [address] Mayra Barajas URINALYSISon 09-17-2019 Bacteria Auto Ql (U) Rare Abnormal None Se en /hpf [facility] Bilirubin Ql (U) Negative Negative [facility] Clarity Refractometry automated (U) Hazy Abnormal Clear [facility] Color (U) Yellow Colorless, Yellow [facility] Epithelial cells.squamous Auto (Urine sed) [#/Area] <1 [facility] Glucose Auto test strip (U) [Mass/Vol] Negative Negative mg/dL [facility] Hemoglobin Auto test strip Ql (U) Negative Negative [facility] Interpretation and review of laboratory results Abnormal [facility] Ketones (U) [Mass/Vol] Negative Negat meli mg/dL [facility] Leukocyte esterase Auto test strip Ql (U) Negative Negative [facility] h Mucus Auto (Urine sed) [#/Area] Rare None Seen, Rare /lpf [facility] Nitrite Auto test strip Ql (U) Negative Negative [facility] pH (U) 6.0 [pH] [facility] Protein (U) [Mass/Vol] Negative Negat meli mg/dL [facility] RBC Auto (Urine sed) [#/Area] <1 [facility] Specific gravity (U) [Rel density] 1.025 [facility] Urobilinogen (U) [Mass/Vol] <2.0 <2.0 mg/dL [facility] Microscopic examination is performed on all urinalysis samples and only positive findings are reported. The test for blood on the chemical analytic portion of urinalysis may also be positive due to hemoglobinuria and myoglobinuria and if red blood cells are present they are quantified by microscopic examination. [facility] Vital Signs Date Time Vital Sign Value Performing Clinician Facility 03-14-2025 15:12-0400 Body mass index (BMI) [Ratio] 38.61 kg/m2 Mar Duarte [employer] MANAGER Work Phone: [facility] 03-14-2025 15:12-0400 Body weight 105.23 kg Mar Duarte [employer] MANAGER Work Phone: [facility] 03-14-2025 15:12-0400 Diastolic blood pressure 76 mm[Hg] Mar Duarte [employer] MANAGER Work Phone: [facility] 03-14-2025 15:12-0400 Systolic blood pressure 122 mm[Hg] Mar Duarte [employer]OUNTAIN SERVICES MANAGER Work Phone: [facility] 03-02-2025 11:33-0400 Body height 167.64 cm PHYSICIAN NO [facility] 03-02-2025 11:33-0400 Body mass index (BMI) [Ratio] 37.3 kg/m2 PHYSICIAN NO [facility] 03-02-2025 11:33-0400 Body temperature 98.3 [degF] PHYSICIAN NO [facility] 03-02-2025 11:33-0400 Body weight 105 kg PHYSICIAN NO [facility] 03-02-2025 11:33-0400 Diastolic blood pressure 68 mm[Hg] PHYSICIAN NO [facility] 03-02-2025 11:33-0400 Heart rate 107 /min PHYSICIAN NO [facility] 03-02-2025 11:33-0400 Respiratory rate 18 /min PHYSICIAN NO [facility] 03-02-2025 11:33-0400 SaO2% (BldA) [Mass fraction] 98 % PHYSICIAN NO [facility] 03-02-2025 11:33-0400 Systolic blood pressure 100 mm[Hg] PHYSICIAN NO [facility] 01-01-2025 09:50-0400 Body mass index (BMI) [Ratio] 38.41 kg/m2 Gilberto Magdi DO Work Phone: [facility] 01-01-2025 09:50-0400 Body weight 104.69 kg Gilberto Magdi DO Work Phone: [facility] 01-01-2025 09:50-0400 Diastolic blood pressure 74 mm[Hg] Gilberto Magdi DO Work Phone: [facility] [employer] 01-01-2025 09:50-0400 Systolic blood pressure 114 mm[Hg] Gilberto Magdi DO Work Phone: [facility] 04-08-2023 16:30-0400 Body height 165.1 cm Jenise Angela Other [facility] Other 04-08-2023 16:30-0400 Body mass index (BMI) [Ratio] 29.15 kg/m2 Jenise Angela Other [facility] Other 04-08-2023 16:30-0400 Body temperature 98 [degF] Jenise Angela Other [facility] Other 04-08-2023 16:30-0400 Body weight 79.47 kg Jenise Angela Other [facility] Other 04-08-2023 16:30-0400 Diastolic blood pressure 67 mm[Hg] Jenise Angela Other [facility] Other 04-08-2023 16:30-0400 SaO2% (BldA) [Mass fraction] 97 % Jenise Angela Other [facility] Other 04-08-2023 16:30-0400 Systolic blood pressure 102 mm[Hg] Jenise Angela Other [facility] Other 02-28-2023 17:00-0400 Body height 167.64 cm Jenise Angela Other [facility] Other 02-28-2023 17:00-0400 Body mass index (BMI) [Ratio] 28.08 kg/m2 Jenise Israelmond Other [facility] Other 02-28-2023 17:00-0400 Body temperature 97.7 [degF] Jenise Israelmond Other [facility] Other 02-28-2023 17:00-0400 Body weight 78.93 kg Jenise Israelmond Other [facility] Other 02-28-2023 17:00-0400 Diastolic blood pressure 72 mm[Hg] Jenise Angela Other [facility] Other 02-28-2023 17:00-0400 Respiratory rate 18 /min Jenise Angela Other [facility] Other 02-28-2023 17:00-0400 SaO2% (BldA) [Mass fraction] 98 % Jenise Israelmond Other [facility] Other 02-28-2023 17:00-0400 Systolic blood pressure 108 mm[Hg] Jenise Angela Other [facility] Other 09-25-2019 07:41-0400 Body Temperature 97.81 [degF] [facility] 09-25-2019 07:41-0400 BP Diastolic 64 mm[Hg] [facility] 09-25-2019 07:41-0400 BP Systolic 96 mm[Hg] [facility] 09-25-2019 07:41-0400 Pulse (Heart Rate) 80 /min [facility] 09-25-2019 07:41-0400 Pulse Oximetry 99 % [facility] 09-24-2019 09:00-0400 Respiratory Rate 16 /min [facility] 09-14-2019 17:18-0500 BMI (Body Mass Index) 28.29 kg/m2 [facility] 09-14-2019 17:18-0500 Body weight 77.11 kg [facility] 09-14-2019 17:18-0500 Height 165.1 cm [facility] Encounters Encounter Date Encounter Type Care Provider Facility Start: 03-14-2025 End: 03-14-2025 Office outpatient visit 15 minutes Mar Duarte NP Work Phone: [facility] Comment on above: Vaginal bleeding aff ecting early ([facility]) (Primary Dx); Encounter to discuss test results Start: 03-14-2025 End: 03-14-2025 ambulatory MAR DUARTE Not Available Start: 03-07-2025 End: 03-07-2025 ambulatory MAR DUARTE Not Available Start: 03-02-2025 End: 03-02-2025 ambulatory PHYSICIAN [facility] Work Phone: Start: 03-02-2025 End: 03-02-2025 Patient encounter procedure Leny Lira SCIENTIFIC PHOTOGRAPHER -[facility] Work Phone: Start: 02-13-2025 [...] procedure Gilberto Magdi DO Work Phone: [facility] Comment on above: Encounter for IUD re moval; Pelvic pain in female Start: 01-01-2025 End: 01-01-2025 ambulatory GILBERTO MAGDI Not Available Start: 06-05-2024 End: 06-05-2024 ambulatory Latoya SCHMIDT Facility:[facility] Start: 05-24-2024 End: 05-24-2024 [facility] Result [...] 04-08-2023 End: 04-08-2023 ambulatory Jenise Miller Other [facility] Other Start: 04-08-2023 Office outpatient visit 15 minutes Jenise Miller [facility] Start: 02-28-2023 End: 02-28-2023 ambulatory Jenise Miller Other [facility] Other Start: 02-28-2023 Office outpatient visit 15 minutes Jenise Miller [facility] Start: 11-07-2022 End: 11-07-2022 ambulatory GERBER DOE . Facility: Start: 03-12-2022 End: 03-13-[address] GILBERTO FAIRBANKS . Facility: Start: 03-04-2022 End: 03-04-[address] GILBERTO FAIRBANKS . Facility: Start: 09-14-2019 End: 09-25-2019 Evaluation and management of inpatient LENO LIND [facility] Start: 09-14-2019 End: 09-25-2019 Evaluation and management of inpatient Leno Lind Work Phone: [facility] Procedures Date Procedure Procedure Detail Performing Clinician Start: 03-02-2025 Quick Strep (POC) PHYSI FATUMA NO FAMILY Start: 02-13-2025 [facility] PREG QUANT HCG Core y Magdi DO Work Phone: Start: 02-11-2025 [facility] PREG QUANT HCG Core y Magdi DO Work Phone: Start: 01-01-2025 IUD REMOVAL Gilberto Fazi o DO Work Phone: Start: 05-24-2024 [facility] PREG QUANT HCG Core y Magdi DO Work Phone: Start: 05-22-2024 [facility] PREG QUANT HCG Core y Magdi DO Work Phone: Start: 09-17-2019 Urinalysis [facility] Work Phone: Plan of Treatment Date Care Activity Detail Author Start: 03-27-2025 End: 03-27-2025 Professional / ancillary services management 03/27/2025 1:00 PM EDT Ancillary Procedure [facility] [address] [place] [address] [facility] Start: 03-11-2025 Influenza vaccination [facility] Start: 03-07-2025 End: 03-07-2025 ambulatory 03/07/2025 1:00 PM EDT Initial [facility] [address] [place] [address] [facility] Start: 03-07-2025 End: 03-07-2025 Professional / ancillary services management 03/07/2025 12:30 PM EDT Ancillary Procedure [facility] [address] [place] [address] [facility] Start: 03-04-2025 End: 03-04-2025 Patient encounter procedure [facility] Start: 01-21-2025 End: 01-21-2025 Professional / ancillary services management 01/21/2025 2:30 PM EDT Ancillary Procedure [facility] [address] [place] [id number] [facility] Start: 01-01-2025 End: 07-03-2025 US Pelvis US Pelvis w/ TV Imaging Routine Pelvic pain in female Expected: 01/01/2025, Expires: 07/03/2025 [facility] Work Phone: Comment on above: Expected: 01/01/2025 , Expires: 07/03/2025 Start: 03-11-2024 Influenza vaccination Influenz a Vaccine (#1) [facility] Payers Date Payer Category Payer Private Health Insurance [facility] [id number] 2025 Private Health Insurance [id number] 2023 [place] Blue [employer] [facility] er Subscriber Plan / Payer (Effective 2023-Present) Name: MervinTong hernandez Relation to Subscriber: Self Name: Ab Joyamartine Payer ID: Not on file Type: Not on file Address: [address] [place] [id number] 2023 Unknown [id number] 2022 Medicaid [id number] 2017 Medicaid [id number] 2017 Medicaid [employer] MEDICA[employer] [place] [employer] MED[place] xxxxxxxxxxx 2017-Present xxxxxxxxxxx [id number] 2003 Unknown [id number] 2003 Unknown [id number] 2003 Unknown [id number] 1259 2003 Unknown [id number] 1259 2003 Unknown [id number] 1259 2003 Unknown [id number] 1259 2003 Unknown [id number] 1259 1984 Unknown [id number] 903 1984 Unknown [id number] 593 1959 Unknown [id number] Unknown [id number] Social History Date Type Detail Facility Start: 09-14-2019 End: 05-10-2023 Tobacco smoking status TNIS Never smoker [facility] Start: 09-14-2019 Alcohol intake Ex-drinker (finding) [facility] Start: 2005 Sex Assigned At Not on file [facility] Start: 06-23-2023 End: 01-01-2025 Sex Assigned At [facility] [employer] Other Start: 05-10-2023 Tobacco use and exposure Smokeless tobacco non-user [facility] Start: 06-23-2023 End: 03-14-2025 Alcoholic beverage intake Lifetime non-drinker (finding) [facility] Start: 06-23-2023 End: 01-01-2025 History of Social function [facility] Sex Female (finding) [facility] Start: 2005 Sex Assigned At Female F [facility] History of Present illness Narrative 03-14-2025 Mar Duarte NP - 03/14/2025 3:00 PM EDT Note Date & Type Note Facility 03-14-2025 History of Presen t illness Narrative Reason for Appointment: Patient ID: Tong Hinson is a 19 y.o. female who presents for Discuss US results (Pt present today to discuss dating US/RTW.) Patient presents today for Acute Visit. MEDICATIONS No current outpatient medications ALLERGIES Allergies Allergen Reactions Lactose diarrhea PROBLEMS Active Ambulatory Problems Diagnosis Date Noted No Active Ambulatory Problems Resolved Ambulatory Problems Diagnosis Date Noted No Resolved Ambulatory Problems No Additional Past Medical History HISTORY PAST MEDICAL HISTORY SOCIAL HISTORY No past medical history on file. Social History Tobacco Use Smoking status: Never Smokeless tobacco: Never Substance Use Topics Alcohol use: Never Drug use: Never FAMILY HISTORY No family history on file. SURGICAL HISTORY History reviewed. No pertinent surgical history. REVIEW OF SYSTEMS Review of Systems: Review of Systems Constitutional: Negative. HENT: Negative. Eyes: Negative. Respiratory: Negative. Cardiovascular: Negative. Gastrointestinal: Negative. Genitourinary: Positive for vaginal bleeding. Musculoskeletal: Negative. Skin: Negative. Neurological: Negative. All other systems reviewed and are negative. Hematological: Negative. Endocrine: Negative. Allergic/Immunologic: Negative. OBJECTIVE Objective: Physical Exam Constitutional: Appearance: Normal appearance. She is well-developed. Cardiovascular: Rate and Rhythm: Normal rate and [...] nursing note reviewed. Exam conducted with a patient companion present. Vitals: Estimated body mass index is 38.61 kg/m as calculated from the following: Height as of 05/11/23: 5' 5 . Weight as of this encounter: 232 lb. BP: 122/76 Patient's last menstrual period was 01/14/2025. ASSESSMENT & PLAN ICD-10-CM 1. Encounter to discuss test results Z71.2 Patient presents to office today to discuss dating ultrasound and bleeding in early . Patient was evaluated in the Emergency Department on March 07 for cramping and vaginal bleeding. Ultrasound was completed and single intrauterine gestational sac without pole. Follow up ultrasound completed today and await results. Discussed with patient concerns regarding pole despite increased HCG levels. Will follow up on ultrasound from today once it is available for review. Patient off of work until follow up. If she has increased bleeding or pain over the weekend she is to be evaluated in the ED. Follow up ultrasound is scheduled in 1 week. Documented by Mar Duarte NP on behalf of: Mar Durate NP documented in this encounter [facility] History of Present illness Narrative 01-01-2025 [...] nursing note reviewed. Exam conducted with a patient companion present. Vitals: Estimated body mass index is [...] given: yes Instructions and paperwork completed: yes [place] protocol: Patient states understanding of procedure being [...] Gilberto Fairbanks DO documented in this encounter [facility] Evaluation note 04-08-2023 Note Date & [...] exacerbation, unspecified whether persistent (ICD-10 - J45.901) [facility] Other Evaluation note 02-28-2023 Note Date & [...] Contact dermatitis home care material was printed [facility] Other Evaluation note Note Date & Type Note Facility Evaluation note Diagnosis Encounter for IUD removal Pelvic pain in female Unspecified symptom associated with female genital organs documented in this encounter [facility] Evaluation note Note Date & Type Note Facility Evaluation note Diagnosis Onset Date Resolution Cough noneactive March 02, 11:22am Sore throat noneactive March 02, 2025 11:22am [facility] [employer] Work Phone: Evaluation note Note Date & Type Note Facility Evaluation note Diagnosis Vaginal bleeding affecting early ([facility])- Primary Encounter to discuss test results Other specified counseling documented in this encounter [facility] History general Narrative - Reported Note Date & Type Note Facility History general Narrative - Reported Type Surgical History C section [facility] Other Reason for referral (narrative) Note Date & Type Note Facility Reason for referral (narrative) No reason for referral information available [facility] Work Phone: Summary Purpose Family History No Family History Records FoundNo Family History Records FoundNo Family History Records FoundNo Family History Records Found Advance Directives No Advanced Directives Records FoundDocuments on File Type Date Recorded 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 Patient is visiting her father in [facility] every other weekend and reportedly [...] <4 cigarettes daily. Disposition: Home Follow Up: [facility] [place] [address] Follow up on 10/05/2019 Appointment time: 11:00am with [place] for counseling; SURINDER was told to call day before discharge [facility] hospital psychiatry appointment. MARLENI Discharge Diet: Additional Information: [...] custody court date not knowing if the applied psychology professor will agree to let her dad be [...] Name: Tong Hinson Admit Date: MR #: [id number] : 2005 Perpetual Assessment Tong Hinson is a 14 y.o. female was seen individually, case discussed with nursing staff, medical records were reviewed. Patient stated that she is anticipating some favorable answer from children's services accounting software specialist as, she had repeatedly mentioned about her [...] 5' 5 Wt 77.1 kg (170 lb) SmT259% BMI 28.29 kg/m Mental Status Evaluation: General [...] Pavel, RDN, LD Dietitian Office * Latoya Dallas MSW PROFESSOR OF COMMUNICATION - 09/24/2019 10:50 AM EDT Reviewed patient's case with Dr. Lind. Patient is making good progress with symptom management. Dr. Lind estimates that patient may discharge as soon as stable placement is available with confirmation from [facility] ([facility]). SURINDER is awaiting call from Aicha Ordoñez at [facility] confirm that safe placement for patient with her biological father has been resolved. 11:35am: SURINDER spoke to Aicha from [facility] who affirmed that patient's mother has finally consented to voluntarily allow patient to stay with her biological father Henok and step mother Sandee while she works a case plan with [facility]. Biological mother will retain custody in [...] paperwork. She is faxing it over now. SAP PI DEVELOPER will place signed form on chart for patient's discharge home with dad tomorrow morning. 3:35pm: SAP PI DEVELOPER spoke with patient's father to review the plan to pick patient up tomorrow morning. Father voiced an understanding of this plan and states that he will be at the hospital between 10-10:30am to pick patient up for discharge. business services vice president will continue to follow and assist with discharge planning. * Linda Bingham CTRS - 09/24/2019 10:35 AM EDT 3701-1664 Goal Group: [place] out in [facility] with peers when approached for group, willing [...] sleeping and anxiety at bedtime , this display card writer administered Atarax 25 mg, patient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 Role [...] BE BASED ON THE PRIMARY CLINICAL RECORDS. [email or web address] provides no warranty or guarantee of the accuracy or completeness of information in this document.
== END 2025-03-21 11:45 | disposition home or self-care (01) ==
LOC: LAB 11:45
PROVIDERS: Visit Provider Nurse Practitioner Family
DX: Z32.02 Encounter for pregnancy test, result negative (principal)
CPT/HCPCS: 36415; 84702

== ENCOUNTER 2025-03-23 11:46 | Outpatient (RCR) | payer OTHER, SELFPAY | END 2025-04-10 08:06 | disposition home or self-care (01) | LOC: LAB 11:46 | PROVIDERS: Visit Provider Nurse Practitioner Family | DX: Z51.81 Encounter for therapeutic drug level monitoring (principal); Z32.02 Encounter for pregnancy test, result negative | CPT/HCPCS: 36415; 84702 ==

== ENCOUNTER 2025-03-31 02:46 | Emergency (ER) | payer OTHER, SELFPAY ==
--- OUTSIDE RECORDS SUMMARY | 2025-03-21 11:00 | XMS_ITS | Encounter Summary ---
Author Organization [facility] Address [address] [place] [address] Care Team Providers Care Supervisor Lace Tearing Name Role Phone Unavailable Primary Care Provider Unavailabl e Encounter Details Date Type Department Care Team (Latest Contact Info) Description 03/21/2025 11:00 AM EDT Ancillary Procedure [facility] [address] [place] [address] Encounter to determine viability of , single or unspecified fetus ([facility]) Social History Tobacco Use Types Packs/Day Years [...] as of this encounter Plan of Treatment Not on file documented as of this encounter Procedures Procedure Name Priority Date/Time Associated Diagnosis Comments US OB TRANSVAGINAL Routine 03/21/2025 11 :35 AM EDT Encounter to determine viability of , single or unspecified fetus ([facility]) documented in this encounter Results * US OB transvaginal (03/21/2025 11:35 AM EDT) Anatomical Region Laterality Modality Body Ultrasound 03/21/2025 3:05 PM EDT Impressions 03/21/2025 3:30 PM EDT No pole identified, correlate with beta hCG findings. TRANSCRIBED BY: ELECTRONICALLY SIGNED BY: Mac Chen MD Narrative 03/21/2025 3:30 PM EDT FINDINGS: Comparison made with prior examinations of March 14, 2025, March 07, 2025. Persistent intrauterine gestational sac, 2.4 cm which would be consistent with appropriate growth, current sonographic age 7 weeks and 0 days. There remains a 5 mm yolk sac however still no pole is identified. Closed cervix 5.0 cm length. Procedure Note Mac Chen MD - 03/21/2025 FINDINGS: Comparison made with prior examinations of March 14, 2025, February. Persistent intrauterine gestational sac, 2.4 cm which would be consistentwith appropriate growth, current sonographic age 7 weeks and 0 days. Thereremains a 5 mm yolk sac however still no pole is identified. Closedcervix 5.0 cm length. IMPRESSION: No pole identified, correlate with beta hCG findings. TRANSCRIBED BY: ELECTRONICALLY SIGNED BY: Mac Chen MD us Gilberto Fairbanks DO IMG OB US PROCEDURES Final Resul t documented in this encounter Visit Diagnoses Diagnosis Encounter to determine viability of , single or unspecified fetus ([facility] documented in this encounter
--- OUTSIDE RECORDS SUMMARY | 2025-03-31 02:52 | XMS_ITS | CCD ---
Author Organization [facility] Partnership [facility] Care Team Providers Care Certified Coding Specialist Name Role Phone LENO LIND Admitting Unavailable [...] Unavailable MAGDI ., DR REYES Admitting Unavailable YEADDISS, DR GEORGIA Portillo Consulting Unavailable MAGDI ., DR REYES Consulting Unavailable MAGDI ., DR REYES Attending Unavailable MAGDI ., DR REYES Consulting Unavailable MAGDI ., DR REYES Admitting Unavailable Jenise Miller Unavailable Gilberto Fairbanks DO Unavailable Latoya SCHMIDT Attending Unavailable Unavailable Primary Care Provider Unavailgeovanna SARMIENTO FAMILY, PHYSICIAN Primary Care Provider Unava ilable Leny Amezcua APRN Attending Provider [phone] GILBERTO FAIRBANKS Attending Unavailable GILBERTO FAIRBANKS Referring Unavailable MAR DUARTE Attending Unavailable Allergies Allergy Classification Reported Allergen(s) Allergy Type Date of Onset Reaction(s) Facility (13 sources) Lactose; Translations: [Unknown] Drug Allergy 09-14-2019 [facility] Three Repository Medications Current Medications Medication Drug [...] 1 capsule by mouth once daily Pnv [id number]-Dha 90 mg iron- 1 mg-200 mg capsule [...] as needed acetaminophen (TYLENOL) tablet 650 mg [id number] 200 actuat albuterol 0.09 mg/actuat metered dose [...] source) Cough; Translations: [Cough] 03-02-2025 Episodic Other screening for suspected conditions (not mental disorders or infectious disease) (1 source) Evaluation finding; Translations: [Encounter for test, result negative] 03-21-2025 Episodic Other upper respiratory infections (2 sources) Acute sinusitis, unspecified; Translations: [Sore throat symptom] Episodic Past or Other Problems Problem Classification Problem Date Documented Da te Episodic/Chronic Unclassified (1 source) Contact with and (suspected) exposure to covid-19 Z20.822 Results Test Name Value Interpretation Reference Range Facility TB PREG QUANT HCGon 025 HCG QUANTITATIVE 24900 mIU/mL [facility] Comment on above: 5-50 0.2-1 WEEK 50-500 1-2 WEEKS 100-5,000 2-3 WEEKS 500-10,000 3-4 WEEKS 1,000-50,000 4-5 WEEKS 10,000-100,000 5-6 WEEKS 15,000-200,000 6-8 WEEKS 10,000-100,000 2-3 MONTHS [facility] PREG QUANT HCGon 025 HCG QUANTITATIVE 32718 mIU/mL [facility] Comment on above: 5-50 0.2-1 WEEK 50-500 1-2 WEEKS 100-5,000 2-3 WEEKS 500-10,000 3-4 WEEKS 1,000-50,000 4-5 WEEKS 10,000-100,000 5-6 WEEKS 15,000-200,000 6-8 WEEKS 10,000-100,000 2-3 MONTHS [facility] US OB TRANSVAGINALon 025 OB TRANSVAGINAL FINDINGS: Comparison made with prior examinations of March 14, 2025, March 07, 2025. Persistent intrauterine gestational sac, 2.4 cm which would be consistent with appropriate growth, current sonographic age 7 weeks and 0 days. There remains a 5 mm yolk sac however still no pole is identified. Closed cervix 5.0 cm length. IMPRESSION: No pole identified, correlate with beta hCG findings. TRANSCRIBED BY: ELECTRONICALLY SIGNED BY: Mac Chen MD Normal Not Available Comment on above: Order Comment: US OB VIABILITY PLEASE PERFORM TRANSVAGINAL ULTRASOUND IF INDICATED Patient's last menstrual period was 01/14/2025. US OB TRANSVAGINALon 025 US OB TRANSVAGINAL [...] Leny Amezcua on 03-02-2025 Quick Strep (POC) [facility] TBH PREG QUANT HCGon 025 HCG QUANTITATIVE 314 mIU/mL [facility] Comment on above: 5-50 0.2-1 WEEK 50-500 1-2 WEEKS 100-5,000 2-3 WEEKS 500-10,000 3-4 WEEKS 1,000-50,000 4-5 WEEKS 10,000-100,000 5-6 WEEKS 15,000-200,000 6-8 WEEKS 10,000-100,000 2-3 MONTHS [facility] TBH PREG QUANT HCGon 02-11- 025 HCG QUANTITATIVE 127 mIU/mL [facility]care Comment on above: 5-50 0.2-1 WEEK 50-500 1-2 WEEKS 100-5,000 2-3 WEEKS 500-10,000 3-4 WEEKS 1,000-50,000 4-5 WEEKS 10,000-100,000 5-6 WEEKS 15,000-200,000 6-8 WEEKS 10,000-100,000 2-3 MONTHS [facility] US PELVIC COMPLETE W/ TVon [...] given: yes Instructions and paperwork completed: yes [place] protocol: Patient states understanding of procedure being [...] office for annual exam unless needed otherwise [facility] TBH PREG QUANT HCGon 05-24- 024 HCG QUANTITATIVE <1 mIU/mL [facility] Comment on above: 5-50 0.2-1 WEEK 50-500 1-2 WEEKS 100-5,000 2-3 WEEKS 500-10,000 3-4 WEEKS 1,000-50,000 4-5 WEEKS 10,000-100,000 5-6 WEEKS 15,000-200,000 6-8 WEEKS 10,000-100,000 2-3 [facility] PREG QUANT HCGon 024 HCG QUANTITATIVE <1 mIU/mL [facility] Comment on above: 5-50 0.2-1 WEEK 50-500 1-2 WEEKS 100-5,000 2-3 WEEKS 500-10,000 3-4 WEEKS 1,000-50,000 4-5 WEEKS 10,000-100,000 5-6 WEEKS 15,000-200,000 6-8 WEEKS 10,000-100,000 2-3 MONTHS [facility] COVID Quick Testingon 2022 Result Negative [facility] Other CULTURE WOUNDon 11-07-2022 CULTURE WOUND Culture Observations : ANAEROBE PRESENT. Isolate 1 Peptostreptococcus anaerobius Light growth of Normal [facility] Comment on above: Result Comment: EVID ENCE BASED PRACTICE BY [facility] HAS DEMONSTRATED THAT PEPTOSTREPTOCOCCUS SPECIES ARE ROUTINELY SUSCEPTIBLE TO PIPERACILLIN-TAZOBACTAM, CEFOXITIN, ERTAPENEM, IMIPENEM, METRONIDAZOLE AND VARIABLY RESISTANT TO CLINDAMYCIN. Performed By: #### W OUNDCX #### [facility] [address] [address] [address] Mayra Barajas US PELVIS AND TRANSVAGon [...] GEORGIA CHANG Date: 2022-03-12 17:19 Normal [facility] CHLAMYDIA/GONOCOCCUS GEOVANNA (SW AB/URINE/PAPon 03-08-2022 Chlamydia trachomatis, GEOVANNA Negative Normal Negative [facility] Comment on above: Performed By: #### C T/NGNA #### [facility] [address] [address] [address] Mayra Barajas Neisseria gonorrhoeae, GEOVANNA Negative Normal Negative [facility] Comment on above: Performed By: #### C T/NGNA #### [facility] [address] [address] [address] Mayra Barajas VAGINITIS/VAGINOSIS DNA PROB Charles 03-07-2022 Ginger species Negative Normal Negative [facility] Comment on above: Performed By: #### V AGINT #### [facility] [address] [place] [address] Dr. Mayra Barajas Gardnerella vaginalis Positive Abnormal Negative [facility] Comment on above: Performed By: #### V AGINT #### [facility] [address] [place], [place] [address] Dr. Mayra Barajas Trichomonas vaginalis Negative Normal Negative [facility] Comment on above: Performed By: #### V AGINT #### [facility] [address] [place], [place] [address] Dr. Mayra Barajas URINALYSISon 09-17-2019 Bacteria Auto Ql (U) Rare Abnormal None [facility] Bil[facility] Ql (U) Negative Negative [facility] Clarity Refractometry automated (U) Hazy Abnormal Clear [facility] Color (U) Yellow Colorless, Yellow [facility] Epithelial cells.squamous Auto (Urine sed) [#/Area] <1 [facility] Glucose Auto test strip (U) [Mass/Vol] Negative Negative mg/dL [facility] Hemoglobin Auto test strip Ql (U) Negative Negative [facility] Interpretation and review of laboratory results Abnormal [facility] Ketones (U) [Mass/Vol] Negative Negat meli mg/dL [facility] Leukocyte esterase Auto test strip Ql (U) Negative Negative [facility] h Mucus Auto (Urine sed) [#/Area] Rare None Seen, Rare /lpf [facility] Nitrite Auto test strip Ql (U) Negative Negative [facility] pH (U) 6.0 [pH] [facility] Protein (U) [Mass/Vol] Negative Negat meli mg/dL [facility] RBC Auto (Urine sed) [#/Area] <1 [facility] Specific gravity (U) [Rel density] 1.025 [facility] Urobilinogen (U) [Mass/Vol] <2.0 <2.0 mg/dL [facility] Microscopic examination is performed on all urinalysis samples and only positive findings are reported. The test for blood on the chemical analytic portion of urinalysis may also be positive due to hemoglobinuria and myoglobinuria and if red blood cells are present they are quantified by microscopic examination. [facility] Vital Signs Date Time Vital Sign Value Performing Clinician Facility 03-14-2025 15:12-040 Body mass index (BMI) [Ratio] 38.61 kg/m2 Mar Duarte NP Work Phone: [facility] 03-14-2025 15:12040 Body weight 105.23 kg Mar Duarte NP Work Phone: [facility] 03-14-2025 15:12-0400 Diastolic blood pressure 76 mm[Hg] Mar Loyderly CHUCKING AND BORING MACHINE OPERATOR Work Phone: [facility] 03-14-2025 15:12-0400 Systolic blood pressure 122 mm[Hg] Mar Duarte CHUCKING AND BORING MACHINE OPERATOR Work Phone: [facility] 03-02-2025 11:33-0400 Body height 167.64 cm PHYSICIAN NO [facility] 03-02-2025 11:33-0400 Body mass index (BMI) [Ratio] 37.3 kg/m2 PHYSICIAN NO [facility] 03-02-2025 11:33-0400 Body temperature 98.3 [degF] PHYSICIAN NO [facility] 03-02-2025 11:33-0400 Body weight 105 kg PHYSICIAN NO [facility] 03-02-2025 11:33-0400 Diastolic blood pressure 68 mm[Hg] PHYSICIAN NO [facility] 03-02-2025 11:33-0400 Heart rate 107 /min PHYSICIAN NO [facility] 03-02-2025 11:33-0400 Respiratory rate 18 /min PHYSICIAN NO [facility] 03-02-2025 11:33-0400 SaO2% (BldA) [Mass fraction] 98 % PHYSICIAN NO [facility] 03-02-2025 11:33-0400 Systolic blood pressure 100 mm[Hg] PHYSICIAN NO [facility] 01-01-2025 09:50-0400 Body mass index (BMI) [Ratio] 38.41 kg/m2 Gilberto Magdi DO Work Phone: [facility] 01-01-2025 09:50-0400 Body weight 104.69 kg Gilberto Magdi DO Work Phone: [facility] 01-01-2025 09:50-0400 Diastolic blood pressure 74 mm[Hg] Gilberto Magdi DO Work Phone: [facility] 01-01-2025 09:50-0400 Systolic blood pressure 114 mm[Hg] Gilberto Magdi DO Work Phone: [facility] 04-08-2023 16:30-0400 Body height 165.1 cm Jenise Angela Other [facility] Other 04-08-2023 16:30-0400 Body mass index (BMI) [Ratio] 29.15 kg/m2 Jenise Angela Other [facility] Other 04-08-2023 16:30-0400 Body temperature 98 [degF] Jenise Angela Other [facility] Other 04-08-2023 16:30-0400 Body weight 79.47 kg Jenise Angela Other [facility] Other 04-08-2023 16:30-0400 Diastolic blood pressure 67 mm[Hg] Jenise Angela Other [facility] Other 04-08-2023 16:30-0400 SaO2% (BldA) [Mass fraction] 97 % Jenise Angela Other [facility] Other 04-08-2023 16:30-0400 Systolic blood pressure 102 mm[Hg] Jenise Angela Other [facility] Other 02-28-2023 17:00-0400 Body height 167.64 cm Jenise Angela Other [facility] Other 02-28-2023 17:00-0400 Body mass index (BMI) [Ratio] 28.08 kg/m2 Jenise Angela Other [facility] Other 02-28-2023 17:00-0400 Body temperature 97.7 [degF] Jenise Miller Other [facility] Other 02-28-2023 17:00-0400 Body weight 78.93 kg Jenise Miller Other [facility] Other 02-28-2023 17:00-0400 Diastolic blood pressure 72 mm[Hg] Jenise Israelmond Other [facility] Other 02-28-2023 17:00-0400 Respiratory rate 18 /min Jenise Israelmond Other [facility] Other 02-28-2023 17:00-0400 SaO2% (BldA) [Mass fraction] 98 % Jenise Israelmond Other [facility] Other 02-28-2023 17:00-0400 Systolic blood pressure 108 mm[Hg] Jenise Miller Other [facility] Other 09-25-2019 07:41-0400 Body Temperature 97.81 [degF] [facility] 09-25-2019 07:41-0400 BP Diastolic 64 mm[Hg] [facility] 09-25-2019 07:41-0400 BP Systolic 96 mm[Hg] [facility] 09-25-2019 07:41-0400 Pulse (Heart Rate) 80 /min [facility] 09-25-2019 07:41-0400 Pulse Oximetry 99 % [facility] 09-24-2019 09:00-0400 Respiratory Rate 16 /min [facility] 09-14-2019 17:18-0500 BMI (Body Mass Index) 28.29 kg/m2 [facility] 09-14-2019 17:18-0500 Body weight 77.11 kg [facility] 09-14-2019 17:18-0500 Height 165.1 cm [facility] Encounters Encounter Date Encounter Type Care Provider Facility Start: 03-25-2025 End: 03-27-2025 Telephone encounter Mar Loyderly CHUCKING AND BORING MACHINE OPERATOR Work Phone: [facility] Start: 03-23-2025 End: 03-23-2025 [facility] Result Encounter Mar Gerald CHUCKING AND BORING MACHINE OPERATOR Work Phone: [facility] Unsolicited Start: 03-23-2025 End: 03-23-2025 [facility] Result Encounter Mar Gerald CHUCKING AND BORING MACHINE OPERATOR Work Phone: [facility] Unsolicited Start: 03-21-2025 End: 03-21-2025 [facility] Result Encounter Mar Gerald CHUCKING AND BORING MACHINE OPERATOR Work Phone: [facility] Unsolicited Start: 03-21-2025 End: 03-21-2025 Clinisync Result Encounter Mar Gerald CHUCKING AND BORING MACHINE OPERATOR Work Phone: [facility] Unsolicited Start: 03-21-2025 End: 03-27-2025 ambulatory Mar Gerald CHUCKING AND BORING MACHINE OPERATOR Work Phone: Not Available Comment on above: examinatio n or test, negative result (Primary Dx) Start: 03-14-2025 End: 03-14-2025 Office outpatient visit 15 minutes Mar Whitely CHUCKING AND BORING MACHINE OPERATOR Work Phone: [facility] Comment on above: Vaginal bleeding aff ecting early ([facility]) (Primary Dx); Encounter to discuss test results Start: 03-14-2025 End: 03-14-2025 ambulatory MAR GERALD Not Available Start: 03-07-2025 End: 03-07-2025 ambulatory GILBERTO FAIRBANKS Not Available Start: 03-02-2025 End: 03-02-2025 ambulatory PHYSICIAN GUILLERMINA [facility] Work Phone: Start: 03-02-2025 End: 03-02-2025 Patient encounter procedure Leny Lira SOCIOLOGY RESEARCH ASSISTANT [facility] Work Phone: Start: [...] Start: 06-05-2024 End: 06-05-2024 ambulatory Latoya Ankit BRAYAN Facility:[facility] Start: 05-24-2024 End: 05-24-2024 Clinisync Result [...] 04-08-2023 End: 04-08-2023 ambulatory Jenise Miller Other [facility] Other Start: 04-08-2023 Office outpatient vi sit 15 minutes Jenise Israelmond [facility] Start: 02-28-2023 End: 02-28-2023 ambulatory Jenise Miller Other [facility] Other Start: 02-28-2023 Office outpatient vi sit 15 minutes Jenise Israelmond [facility] Start: 11-07-2022 End: 11-07-2022 ambulatory GERBER DOE . Facility:[facility] Start: 03-12-2022 End: 03-13-[address] GILBERTO FAIRBANKS . Facility:[facility] Start: 03-04-2022 End: 03-04-[address] GILBERTO FAIRBANKS . Facility: Start: 09-14-2019 End: 09-25-2019 Evaluation and management of inpatient [facility] Start: 09-14-2019 End: 09-25-2019 Evaluation and management of inpatient [facility] [place] Work Phone: [facility] Procedures Date Procedure Procedure Detail Performing Clinician Start: 03-23-2025 [facility] PREG QUANT HCG David Duarte CHUCKING AND BORING MACHINE OPERATOR Work Phone: Start: 03-21-2025 TBH PREG QUANT HCG David Duarte CHUCKING AND BORING MACHINE OPERATOR Work Phone: Start: 03-02-2025 Quick Strep (POC) PHYSI FATUMA NO FAMILY Start: 02-13-2025 TBH PREG QUANT HCG Core y Magdi DO Work Phone: Start: 02-11-2025 TBH PREG QUANT HCG Core y Magdi DO Work Phone: Start: 01-01-2025 IUD REMOVAL Gilberto Fazi o DO Work Phone: Start: 05-24-2024 TBH PREG QUANT HCG Core y Madgi DO Work Phone: Start: 05-22-2024 TBH PREG QUANT HCG Core y Magdi DO Work Phone: Start: 09-17-2019 Urinalysis Torresvikas Brown u Vamshii Work Phone: Plan of Treatment Date Care Activity Detail Author Start: 03-27-2025 End: 03-27-2025 Professional / ancillary services management 03/27/2025 1:00 PM EDT Ancillary Procedure [facility] [address] [place] [address] [facility] Start: 03-21-2025 End: 03-21-2026 hCG, quantitative hCG, quantitative Lab Routine examination or test, negative result Expected: 03/21/2025 (Approximate), Expires: 03/21/2026 [facility] Work Phone: Comment on above: Expected: 03/21/2025 (Approximate), Expires: 03/21/2026 Start: 03-11-2025 Influenza vaccination [facility] Start: 03-07-2025 End: 03-07-2025 ambulatory 03/07/2025 1:00 PM EDT Initial [facility] [address] [place] [address] [facility] Start: 03-07-2025 End: 03-07-2025 Professional / ancillary services management 03/07/2025 12:30 PM EDT Ancillary Procedure [facility] [address] [place] [id number] [facility] Start: 03-04-2025 End: 03-04-2025 Patient encounter procedure [facility] Start: 01-21-2025 End: 01-21-2025 Professional / ancillary services management 01/21/2025 2:30 PM EDT Ancillary Procedure [facility] [address] [place] [address] [facility] Start: 01-01-2025 End: 07-03-2025 US Pelvis US Pelvis w/ TV Imaging Routine Pelvic pain in female Expected: 01/01/2025, Expires: 07/03/2025 [facility] Work Phone: Comment on above: Expected: 01/01/2025 , Expires: 07/03/2025 Start: 03-11-2024 Influenza vaccination Influenza Vacc ine (#1) [facility] Payers Date Payer Category Payer Private Health Insurance [facility] [id number] 2025 Private Health Insurance [id number] 2023 [facility] BCBS [id number] 2023 Unknown [id number] 2022 Medicaid [id number] 2017 Medicaid [id number] 2017 Medicaid [employer] D MEDICAID [employer] MEDICAID xxxxxxxxxxx 2017-Present xxxxxxxxxxx [id number] 2003 Unknown [id number] 593 2003 Unknown [id number]. 593 2003 Unknown [id number]. 1259 2003 Unknown [id number]. 1259 2003 Unknown [id number] [id number]. 1259 2003 Unknown [id number] [id number]. 1259 2003 Unknown [id number]. 1259 2003 Unknown [id number] [id number]. 1259 1984 Unknown [id number] [id number]. 903 1984 Unknown [id number]. 593 1959 Unknown [id number] Unknown [id number] Social History Date Type Detail Facility Start: 09-14-2019 End: 05-10-2023 Tobacco smoking status [facility] Never smoker [facility] Start: 09-14-2019 Alcohol intake Ex-drinker (finding) [facility] Start: 2005 Sex Assigned At Not on file [facility] Start: 06-23-2023 End: 01-01-2025 Sex Assigned At [facility] Other Start: 05-10-2023 Tobacco use and exposure Smokeless tobacco non-user [facility] Start: 06-23-2023 End: 03-14-2025 Alcoholic beverage intake Lifetime non-drinker (finding) [facility] Start: 06-23-2023 End: 01-01-2025 History of Social function [facility] Sex Female (finding) [facility] Start: 2005 Sex Assigned At Female F [facility] Clinical Notes 02-28-2023 to 03-25-2025 Telephone Encounter - Mar Duarte NP - 03/25/2025 2:04 PM EDTTelephone Encounter - Mar Duarte NP - 03/25/2025 2:04 PM EDTMar Duarte NP - 03/14/2025 3:00 PM EDT Note Date & Type Note Facility 03-25-[address] er Note Dr. Fairbanks spoke with patient regarding HCG [facility] Work Phone: 03-25-2025 Miscellaneous Notes Formattin g of this note might be different from the original. Dr. Fairbanks spoke with patient regarding HCG documented in this encounter [facility] 03-14-2025 History of Presen t illness Narrative [...] nursing note reviewed. Exam conducted with a adzing and boring machine helper present. Vitals: Estimated body mass index is [...] Mar Duarte NP on behalf of: Mar Duarte NP documented in this encounter [facility] 01-01-2025 History of Presen t illness Narrative [...] nursing note reviewed. Exam conducted with a adzing and boring machine helper present. Vitals: Estimated body mass index is [...] given: yes Instructions and paperwork completed: yes [place] protocol: Patient states understanding of procedure being [...] Gilberto Fairbanks DO documented in this encounter [facility] 04-08-2023 Evaluation note Encounter Date Diagnosis Assessment [...] exacerbation, unspecified whether persistent (ICD-10 - J45.901) [facility] Other 08-21-2023 Evaluation note* Encounter Date Diagnosis Assessment Notes Treatment Notes Treatment Clinical Notes Feb, Contact dermatitis, unspecified contact dermatitis type, unspecified trigger (ICD-10 - L25.9) Drink plenty fluids, get plenty of rest. Take the prednisone as prescribed until gone starting tomorrow. Take Benadryl as needed for itching. Follow-up with your family physician if no improvement in 2 to 3 days Feb, Other Contact dermati tis home care material was printed [facility] Other Evaluation note* Diagnosis Encounter for IUD removal Pelvic pain in female Unspecified symptom associated with female genital organs documented in this encounter [facility] Diagnosis Onset Date Resolution Status Admit Date Cough noneactive March 02, 11:22am Sore throat noneactive March 02, 2025 11:22am [facility] Work Phone: Evaluation note* Diagnosis Vaginal bleeding affecting early ([facility] Primary Encounter to discuss test results Other specified counseling documented in this encounter [facility]* Diagnosis examination or test, negative result- Primary documented in this encounter [facility] Narrative - Reported* Type Description Date Surgical History C section [facility] Other Reason for referral (narrative)No reason for referral [facility] Work [facility]: Summary Purpose Family History No Family History Records FoundNo Family History Records FoundNo Family History Records FoundNo Family History Records Found Advance Directives Documents on File Type Date Recorded Patient Nail Kegger Expl anation Advance Directives and Livin g [...] Summary Patient Name: Tong Hinson MR #: [id number] : 2005 Admit Date: Discharge Date: 09/25/2019 Clinical Summary Reason for Hospitalization: Tong Hinson is a 14 y.o. female school student resident of [facility] was brought to [facility] after patient had ingested handful [...] . Patient is visiting her father in [facility] every other weekend and reportedly has good [...] <4 cigarettes daily. Disposition: Home Follow Up: [facility] [place] [address] Follow up on 10/05/2019 Appointment time: 11:00am with [place] for counseling; SURINDER was told to call day before discharge [facility] psychiatry appointment. MARLENI Discharge Diet: Additional [...] custody court date not knowing if the event promotions coordinator will agree to let her dad be [...] Name: Tong Hinson Admit Date: MR #: [id number] : 2005 Perpetual Assessment Tong Hinson is a 14 y.o. female was seen individually, case discussed with nursing staff, medical records were reviewed. Patient stated that she is anticipating some favorable answer from children's services it support specialist as, she had repeatedly mentioned about [...] 5' 5 Wt 77.1 kg (170 lb) [id number]% BMI 28.29 kg/m Mental Status Evaluation: General [...] LD Dietitian Office * Latoya Dallas MSW INSPECTOR QUALITY ASSURANCE - 09/24/2019 10:50 AM EDT Reviewed patient's case with Dr. Lind. Patient is making good progress with symptom management. Dr. Lind estimates that patient may discharge as soon as stable placement is available with confirmation from [facility] ([facility]). SURINDER is awaiting call from Aicha Ordoñez at [facility] confirm that safe placement for patient with her biological father has been resolved. 11:35am: SURINDER spoke to Aicha from [facility] who affirmed that patient's mother has finally consented to voluntarily allow patient to stay with her biological father Henok and step mother Sandee while she works a case plan with [facility]. Biological mother will retain custody [...] paperwork. She is faxing it over now. KRAFT MILL OPERATOR will place signed form on chart for patient's discharge home with dad tomorrow morning. 3:35pm: KRAFT MILL OPERATOR spoke with patient's father to review the plan to pick patient up tomorrow morning. Father voiced an understanding of this plan and states that he will be at the hospital between 10-10:30am to pick patient up for discharge. new client banking services clerk will continue to follow and assist with discharge planning. * Linda Bingham CTRS - 09/24/2019 10:35 AM EDT [id number] Goal Group: [place] out in [place] [facility] with peers when approached for group, willing [...] sleeping and anxiety at bedtime , this blog writer administered Atarax 25 mg, patient tolerated [...] Name: Tong Hinson Admit Date: MR #: [id number] : 2005 Perpetual Assessment Tong Hinson is [...] nurse led group over unit rules in [facility]. Sits quietly during group. Does make an [...] call tomorrow and speak with CPS and marriage and family social worker for clarification to her placement following discharge [...] phone. I want to call my CPS oil field caser .Pt attempted to contact JUAN CARLOS Holcomb, [...] Name: Tong Hinson Admit Date: MR #: [id number] : 2005 Perpetual Assessment Tong Hinson is [...] Bingham CTRS - 09/22/2019 3:15 PM EDT 5199-6322 Recreation Therapy: Pt out in [facility] when approached for group, willing to participate. Group was taught new leisure skill of large group game of [employer](Left Center Right), to which pt was familiar with. PT recalled directions and required no assist or limits be set. Poor frustration tolerance displayed with peers. Benefits of leisure presented, to which pt not interested. * Linda Bingham CTRS - 09/22/2019 11:00 AM EDT 7058-2897 Goal group: Pt out in [facility] with peers, playing cards, staff supervising, when [...] Name: Tong Hinson Admit Date: MR #: [id number] [facility] #: [id number] : 2005 Perpetual Assessment Tong Hinson is [...] one on one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
--- OUTSIDE RECORDS SUMMARY | 2025-03-31 02:53 | XMS_ITS | Encounter Summary ---
Author Organization [facility] Address [address] [place] [address] Care Team Providers Care Security Representative Name Role Phone Unavailable Primary Care Provider Unavailabl e Encounter Details Date Type Department Care Team (Late st Contact Info) Description 03/18/2025 Telephone [facility] [address] [place] [phone] Gilberto Fairbanks DO [address] [place] [address] Social History Tobacco Use Types Packs/Day Years [...] Telephone Encounter - Lilian Lawson LPN - 03/18/2025 2:10 PM EDT Provider called patient and would cyndi for her to have US redone this and if still progress, but no FHT then to repeat scan again in 1 week. Discussed with patient why it would not be beneficial to have HCG done. Serena or Neeta, Could one of you please reach out to patient to setup for repeat scan this ? Thank you, Lilian Tucker LPN documented in this encounter Plan of Treatment Not on file documented as of this encounter Visit Diagnoses Not on filedocumented in this encounter
--- OUTSIDE RECORDS SUMMARY | 2025-03-31 02:53 | XMS_ITS | Encounter Summary ---
Author Organization [facility] Address [address] [place] [address] Care Team Providers Care Computer Technical Support Specialist Name Role Phone Unavailable Primary Care Provider Unavailabl e Encounter Details Date Type Department Care Team (Late st Contact Info) Description 03/02/2025 Abstract [facility] [address] [place] [phone] Gilberto Fairbanks DO [address] [facility] [place] [address] Social History Tobacco Use Types Packs/Day Years [...]
--- OUTSIDE RECORDS SUMMARY | 2025-03-31 02:53 | XMS_ITS | Clinical Summary ---
Author Organization [facility] Address [address] [place] [address] Care Team Providers Care Forest Ranger Technician Name Role Phone Unavailable Primary Care Provider Unavailabl e Allergies Active Allergy Reactions Criticality Noted Date Comments Lactose Medium 09/14/2019 diarrhea Medications No known medications Encounters Date Type Department Care Team Description 03/25/2025 Telephone [facility] [address] [place] [address] Kadi Duarte NP 03/23/2025 Clinisync Result Encounter [facility] External Department Unsolicited Kadi Duarte NP 03/21/2025 11:00 AM EDT Ancillary Procedure [facility] [address] [place] [address] Encounter to determine viability of , single or unspecified fetus ([facility]) 03/21/2025 Clinisync Result Encounter [facility] External Department Unsolicited Kadi Duarte NP 03/21/2025 Refill [facility] [address] [place] [address] Kadi Duarte NP examination or test, negative result (Primary Dx) 03/21/2025 Telephone [facility] [address] [place] [address] Antonia Campuzano LPN 03/18/2025 Telephone [facility] [address] [place] [address] Gilberto Fairbanks DO 03/14/2025 3:00 PM EDT Office Visit [facility] [address] [place] [address] Kadi Duarte NP Vaginal bleeding affecting early ([facility]) (Primary Dx); Encounter to discuss test results 03/14/2025 2:30 PM EDT Ancillary Procedure [facility] [address] [place] [address] Pelvic pain in female; Positive urine test ([facility]) 03/07/2025 12:30 PM EDT Ancillary Procedure [facility] [address] [place] [address] Missed menses; Positive urine test ([facility]) 03/04/2025 Abstract [facility] [address] [place] [address] Gilberto Fairbanks, DO 03/02/2025 Abstract [facility] [address] [place] [address] Gilberto Fairbanks, DO 03/02/2025 Abstract [facility] [address] [place] [address] Gilberto Fairbanks, DO 03/02/2025 Abstract [facility] [address] [place] [address] [place] [address] Gilberto Fairbanks, DO 02/13/2025 Clinisync Result Encounter [facility]OM[facility] External Department Unsolicited Gilberto Fairbanks, DO 02/11/2025 Telephone [facility] [address] [place] [address] Lilian Lawson LPN 02/11/2025 Clinisync Result Encounter [facility]OM[facility] External Department Unsolicited Gilberto Fairbanks, DO 02/11/2025 Telephone [facility] [address] [place] [address] Radha Ballesteros MA 01/25/2025 Telephone [facility] [address] [place] [phone] Antonia Campuzano LPN 01/24/2025 Results [place] [address] Antonia Campuzano, LICENSING REPRESENTATIVE US Pelvis w/ TV 01/21/2025 2:30 PM EDT [place] [address] Pelvic pain in female 01/01/2025 9:30 [place] [address] Gilberto Fairbanks DO Encounter for IUD removal; Pelvic pain in female 01/01/20[place] [address] Gilberto Fairbanks DO from Last 3 [...] Sign Reading Time Taken Comments Blood Pressure 122/76 03/14/2025 3:12 PM EDT Pulse - - Temperature - - Respiratory Rate - - Oxygen Saturation - - Inhaled Oxygen Concentration - - Weight 105 kg (232 lb) 03/14/2025 3:12 PM EDT Height 165.1 cm (5' 5 ) 05/11/2023 1:39 PM EDT Body Mass Index 38.61 05/11/2023 1:39 PM EDT Plan of Treatment Not on file Procedures Procedure Name Priority Date/Time Associated Diagnosis Comments [facility] PREG QUANT HCG Routine 03/23/2025 11 :59 AM EDT [facility] PREG QUANT HCG Routine 03/21/2025 12 :07 PM EDT US OB TRANSVAGINAL Routine 03/21/2025 11 :35 AM EDT Encounter to determine viability of , single or unspecified fetus ([facility]) US OB TRANSVAGINAL Routine 03/14/2025 2: 56 PM EDT Pelvic pain in female Positive urine test ([facility]) US OB TRANSVAGINAL Routine 03/07/2025 12 :55 PM EDT Missed menses Positive urine test ([facility]) [facility] PREG QUANT HCG Routine 02/13/2025 10 :40 AM EDT [facility] PREG QUANT HCG Routine 02/11/2025 11 :03 AM EDT US PELVIC COMPLETE W/ TV Routine 01/21/2025 2:38 PM EDT Pelvic pain in female IUD REMOVAL Routine 01/01/2025 10:09 AM EDT Encounter for IUD removal from Last 3 Months Results * TB PREG QUANT HCG (03/23/2025 11:59 AM EDT) Only the most recent of4 resultswithin the time period is included. HCG QUANTITATIVE 19,088 mIU/mL [facility] Comment: 5-50 0.2-1 WEEK 50-500 1-2 WEEKS 100-5,000 2-3 WEEKS 500-10,000 3-4 WEEKS 1,000-50,000 4-5 WEEKS 10,000-100,000 5-6 WEEKS 15,000-200,000 6-8 WEEKS 10,000-100,000 2-3 MONTHS 03/23/2025 11:5 9 AM EDT 03/23/2025 12:08 PM EDT Narrative [facility]IN[facility] - 03/23/2025 12:53 PM EDT Kadi Duarte NP CLINIS[facility] Final Result [facility] * US OB transvaginal (03/21/2025 11:35 AM EDT) Only the most recent of3 resultswithin the time period is included. Anatomical Region Laterality Modality Body Ultrasound 03/21/2025 [...] SIGNED BY: Mac Chen MD us Gilberto Magdi DO IMG OB US PROCEDURES Final Resul t * US Pelvis w/ TV (01/21/2025 2:38 [...] Mac Chen MD us Gilberto Fairbanks DO [facility] US PROCEDURES Final Result * IUD Removal (01/01/2025 10:09 AM EDT) Narrative Mirela Mcnair LPN - 01/01/2025 10:09 AM EDT Mirela [...] given: yes Instructions and paperwork completed: yes [facility] protocol: Patient states understanding of procedure being [...]
--- OUTSIDE RECORDS SUMMARY | 2025-03-31 02:53 | XMS_ITS | Encounter Summary ---
Author Organization [facility] Address [address] [place] [address] Care Team Providers Care Information Management Specialist Name Role Phone Unavailable Primary Care Provider Unavailabl e Encounter Details Date Type Department Care Team (Late st Contact Info) Description 03/21/2025 Telephone [facility] [address] [address] Antonia Campuzano LPN [address] [employer] [place] [address] Social History Tobacco Use Types [...] encounter Miscellaneous Notes * Telephone Encounter - Antonia Campuzano LPN - 03/21/2025 7:30 AM EDT Needed new order documented in this encounter Plan of Treatment Not on file documented as of this encounter Results * US OB transvaginal [...] viability of , single or unspecified fetus ([facility]) Encounter to determine viability of , single or unspecified fetus ([facility]) documented in this encounter
--- OUTSIDE RECORDS SUMMARY | 2025-03-31 02:53 | XMS_ITS | Encounter Summary ---
Author Organization [facility] Address [address] [place] [address] Care Team Providers Care Banana Handler Name Role Phone Unavailable Primary Care Provider Unavailabl e Encounter Details Date Type Department Care Team (Late st Contact Info) Description 03/21/2025 Clinisync Result Encounter [facility] External Department Unsolicited Kadi Duarte, KATHLEEN [address] [place] [address] [place] [address] Social History Tobacco Use Types Packs/Day Years [...] Procedure Name Priority Date/Time Associated Diagnosis Comments [facility] PREG QUANT HCG Routine 03/21/2025 12 :07 PM EDT documented in this encounter Results * [facility] PREG QUANT HCG (03/21/2025 12:07 PM EDT) HCG QUANTITATIVE 24,467 mIU/mL [facility] Comment: 5-50 0.2-1 WEEK 50-500 1-2 WEEKS 100-5,000 2-3 WEEKS 500-10,000 3-4 WEEKS 1,000-50,000 4-5 WEEKS 10,000-100,000 5-6 WEEKS 15,000-200,000 6-8 WEEKS 10,000-100,000 2-3 MONTHS 03/21/2025 12:0 7 PM EDT 03/21/2025 12:07 PM EDT Narrative CLINIS[facility] - 03/21/2025 1:11 PM EDT us Kadi Duarte NP CLINISYLILLI Final Result Performing Organization Address City/State/[facility] Co de Phone Number [facility] documented in this encounter Visit Diagnoses Not on filedocumented in this encounter
--- OUTSIDE RECORDS SUMMARY | 2025-03-31 02:53 | XMS_ITS | Clinical Summary ---
Author Organization [facility] Address [id number] [address] [place] [address] Care Team Providers Care Python Architect Name Role Phone No Pcp, No Pcp [...] MEDICAID [employer] [employer] Care Teams Python Architect Relationship Specialty Start Date End Date No Pcp, [place] [id number] PCP - General Family Medicine 02/04/21
--- OUTSIDE RECORDS SUMMARY | 2025-03-31 02:53 | XMS_ITS | Encounter Summary ---
Author Organization [facility] Address [address] [place] [address] Care Team Providers Care Sheet Rock Installation Helper Name Role Phone Unavailable Primary Care Provider Unavailabl e Encounter Details Date Type Department Care Team (Late st Contact Info) Description 03/02/2025 Abstract [facility] [address] [place] [phone] Gilberto Fairbanks DO [address] [facility] [place] [address] Social History Tobacco Use Types Packs/Day Years [...]
--- OUTSIDE RECORDS SUMMARY | 2025-03-31 02:53 | XMS_ITS | Encounter Summary ---
Author Organization [facility] Address [address] [place] [address] Care Team Providers Care Development Expert Name Role Phone Unavailable Primary Care Provider Unavailabl e Encounter Details Date Type Department Care Team (Late st Contact Info) Description 03/21/2025 Refill [facility] [address] [place] [address] Kadi Duarte, KATHLEEN [address] [facility] [place] [address] examination or test, negative result (Primary Dx) Social History Tobacco Use Types Packs/Day Years [...] as of this encounter Plan of Treatment Scheduled Orders Name Type Priority Associated Diagnoses Orde r Schedule hCG, quantitative Lab Routine examination or test, negative result Expected: 03/21/2025 (Approximate), Expires: 03/21/2026 documented as of this encounter Visit Diagnoses Diagnosis examination or test, negative result- Primary documented in this encounter
--- OUTSIDE RECORDS SUMMARY | 2025-03-31 02:53 | XMS_ITS | Encounter Summary ---
Author Organization [facility] Address [address] [place] [address] Care Team Providers Care Top Hat Body Maker Name Role Phone Unavailable Primary Care Provider Unavailabl e Encounter Details Date Type Department Care Team (Late st Contact Info) Description 03/04/2025 Abstract [facility] [address] [phone] Gilberto Fairbanks DO [address] [facility] [address] [address] Social History Tobacco Use Types Packs/Day Years [...]
--- OUTSIDE RECORDS SUMMARY | 2025-03-31 02:53 | XMS_ITS | Encounter Summary ---
Author Organization [facility] Address [address] [place] [address] Care Team Providers Care Custom Frame Assembler Name Role Phone Gilberto Fairbanks DO Unavailable Encounter Details Date Type Department Care Team (Late st Contact Info) Description 01/01/2025 Abstract [facility] [address] [place] [address] Gilberto Fairbanks DO [address] [place], [facility] Social History Tobacco Use Types Packs/Day [...] on filedocumented in this encounter Care Teams Custom Frame Assembler Relationship Specialty Start Date End Date Gilberto Fairbanks DO [address] [place], [place] [id number] PCP - [place] 07/11/23 documented as of this encounter
--- OUTSIDE RECORDS SUMMARY | 2025-03-31 02:53 | XMS_ITS | Encounter Summary ---
Author Organization [facility] Address [address] [place] [address] Care Team Providers Care Perioperative Assistant Name Role Phone Unavailable Primary Care Provider Unavailabl e Encounter Details Date Type Department Care Team (Late st Contact Info) Description 03/02/2025 Abstract [facility] [address] [place] [phone] Gilberto Fairbanks DO [address] [facility] [place] [address] Social History Tobacco Use Types Packs/Day Years [...]
--- OUTSIDE RECORDS SUMMARY | 2025-03-31 02:53 | XMS_ITS | Encounter Summary ---
Author Organization [facility] Address [address] [place] [address] Care Team Providers Care Family Counselor Name Role Phone Unavailable Primary Care Provider Unavailabl e Encounter Details Date Type Department Care Team (Late st Contact Info) Description 03/23/2025 Clinisync Result Encounter [facility] External Department Unsolicited Kadi Duarte, KATHLEEN [address] [place] [address] [place] [address] Social History Tobacco Use Types [...] Procedure Name Priority Date/Time Associated Diagnosis Comments [facility] PREG QUANT HCG Routine 03/23/2025 11 :59 AM EDT documented in this encounter Results * [facility] PREG QUANT HCG (03/23/2025 11:59 AM EDT) HCG QUANTITATIVE 19,088 mIU/mL [facility] Comment: 5-50 0.2-1 WEEK 50-500 1-2 WEEKS 100-5,000 2-3 WEEKS 500-10,000 3-4 WEEKS 1,000-50,000 4-5 WEEKS 10,000-100,000 5-6 WEEKS 15,000-200,000 6-8 WEEKS 10,000-100,000 2-3 MONTHS 03/23/2025 11:5 9 AM EDT 03/23/2025 12:08 PM EDT Narrative [facility]INIS[facility] - 03/23/2025 12:53 PM EDT us Kadi Duarte NP CLINISYLILLI Final Result Performing Organization Address City/State/[facility] Co de Phone Number [facility] documented in this encounter Visit Diagnoses Not on filedocumented in this encounter
--- OUTSIDE RECORDS SUMMARY | 2025-03-31 02:53 | XMS_ITS | Encounter Summary ---
Author Organization [facility] Address [address] [place] [address] Care Team Providers Care Chief Technical Officer Name Role Phone Unavailable Primary Care Provider Unavailabl e Encounter Details Date Type Department Care Team (Late st Contact Info) Description 03/25/2025 Telephone [facility] [address] [place] [address] Kadi Duarte NP [address] [facility] [place] [address] Social History Tobacco Use Types Packs/Day [...] encounter Miscellaneous Notes * Telephone Encounter - Kadi Duarte NP - 03/25/2025 2:[address] Fairbanks spoke with patient regarding HCG documented in this encounter Plan of Treatment Not on file documented as of this encounter Visit Diagnoses Not on filedocumented in this encounter
--- OUTSIDE RECORDS SUMMARY | 2025-03-31 02:53 | XMS_ITS | Encounter Summary ---
Author Organization [facility] Address [address] [place] [address] Care Team Providers Care Riverine Assault Craft Crewman Name Role Phone Eric Fairbanks DO Unavailable Encounter Details Date Type Department Care Team (Late st Contact Info) Description 05/11/2023 Clinisync Result Encounter [facility] External Department Unsolicited Eric Fairbanks DO [address] [facility] [place] [address] Social History Tobacco Use Types [...] PM EDT Narrative 05/11/2023 4:26 PM EDT The [address] [address] Ultrasound Report Signed Patient: Phill Arreguin MR#: [id number] : 2005 Acct:[id number] Age/Sex: 17 / F ADM Date: 05/11/23 Loc: US Attending Dr: Eric Fairbanks D.O. Ordering Physician: Eric Fairbanks D.O. Date of Service: 05/11/23 Procedure(s): US pelvis transvaginal Accession Number(s): [id number] cc: Eric Fairbanks D.O.; Physician,Non-Staff Álvaro The [address] [address] Patient Name: PHILL ARREGUIN MRN: [id number] date: 2005 Sex: F Assigned Patient Location: US Current Patient Location: US Accession/Order Number: [id number] Exam Date: 05/11/2023 14:48 Report Date: 05/11/2023 [...] Castro Signed By: 05/11/238 DD/ 25 TD/TT: Transit Manager: Procedure Note Radiology, Radiologist, MD - 05/11/[address] [address] Ultrasound Report Signed Patient: Phill Arreguin AMR#: [id number] : 2005Acct:[id number] Age/Sex: 17 / FADM Date: 05/11/23 Loc: US Attending Dr: Eric Fairbanks D.O. Ordering Physician: Eric Fairbanks D.O. Date of Service: 05/11/23 Procedure(s): US pelvis transvaginal Accession Number(s): [id number] cc: Eric Fairbanks D.O.; Physician,Non-Staff Álvaro The [address] [address] Patient Name: PHILL ARREGUIN MRN: [facility]:[id number] date: 2005 Sex: F Assigned Patient Location: US Current Patient Location: US Accession/Order Number: [id number] Exam Date: 05/11/2023 14:48 Report Date: 05/11/2023 [...] Cuauhtemoc Castro Signed By:05/11/231627 DD/ 25 TD/TT: Transit Manager: Eric Fairbanks DO [facility] Final Result documented in this encounter Visit Diagnoses Not on filedocumented in this encounter Care Teams Riverine Assault Craft Crewman Relationship Specialty Start Date End Date Eric Fairbanks [place] [facility] [place] [address] [phone] (work) PCP - [place] [employer] 07/11/23 documented as of this encounter
[2025-03-31 03:01] VITALS: BP 130/88; PULSE 110; TEMP 36.9; O2SAT 97; BMI 37.1
--- NOTE | 2025-03-31 03:24 | ED.GENADUL1 ---
HPI HPI - General Adult General Chief complaint: Vaginal Bleeding Stated complaint: miscarriage Time Seen by Provider: 03/31/25 02:55 Source: patient Mode of arrival: walk-in History of Present Illness HPI narrative: Patient is a 19-year-old female presenting to the emergency department for evaluation of vaginal bleeding. Patient states she was diagnosed with a miscarriage last week by her ADJUNCT WRITING INSTRUCTOR, Dr. Fairbanks. She think she was approximately 7 weeks prior to having symptoms of miscarriage such as vaginal bleeding. She states she has been bleeding for the last week, however they have significantly worsened over the last 3 hours, which prompted her ED visit. She states she is having passage of clots and is soaked through more than 2 pads per hour for the last 3 hours. She denies any symptoms of anemia such as fatigue, chest pain, shortness of breath, lightheadedness, palpitations, or dizziness. She is otherwise healthy with no chronic medical conditions. She is not on anticoagulation/antiplatelet medications. She is scheduled to undergo D&C for this spontaneous in 2 days with her ADJUNCT WRITING INSTRUCTOR. Related Data Home Medications ?Medication ?Instructions ?Recorded ?Confirmed No Known Home Medications 03/02/25 03/31/25 Allergies Allergy/AdvReac Type Severity Reaction Status Date / Time No Known Drug Allergies Allergy Verified 03/31/25 03:01 Opioid HPI Opioid Management Most Recent Opioid Data: Last Pain Scale 9 Today, 04:10 Last MAR Pain Assessment Today, 04:10 Review of Systems ROS Status of ROS 10 or more systems reviewed and unremarkable except as noted in history and below [facility] Medical History (Updated 03/31/25 @ 04:28 by Jose Burton DO) Depression ?F32.A - Depression, unspecified (ICD-10) Anxiety ?F41.9 - Anxiety disorder, unspecified (ICD-10) COVID-19 ?U07.1 - COVID-19 (ICD-10) Asthma ?J45.909 - Unspecified asthma, uncomplicated (ICD-10) Heartburn ?R12 - Heartburn (ICD-10) GERD (gastroesophageal reflux disease) ?K21.9 - Gastro-esophageal reflux disease without esophagitis (ICD-10) Surgical History (Updated 05/19/23 @ 14:12 by Celine Kasper NP) History of section ?Z98.891 - History of uterine scar from previous surgery (ICD-10) Family History (Updated 05/19/23 @ 14:12 by Celine Kasper NP) Other Family history of breast cancer Family history of diabetes mellitus Family history of hypertension Family history of myocardial infarction Family history of stroke Social History (Updated 05/19/23 @ 14:09 by Celine Kasper NP) Within the past year, how often did you have a drink containing alcohol: monthly or less Smoking status: Former smoker Non-prescribed substance use: denies use 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 EYES: Sclerae white. No conjunctival pallor. EARS, NOSE, THROAT: Moist oral mucosa. RESPIRATORY: Clear to auscultation bilaterally, no wheezes, crackles, or stridor, no use of accessory muscles CARDIOVASCULAR: Tachycardic rate and regular rhythm. There is no S3, S4, murmur, rub. GASTROINTESTINAL: Abdomen is mildly tender throughout the lower quadrants. No rebound tenderness or guarding. Nondistended. MUSCULOSKELETAL: No peripheral edema. NEUROLOGIC: Patient is awake and alert. Facies were symmetrical. PELVIC: Formed with a female nurse cost manager. There is a small amount of bleeding from the closed cervical os. No large blood clots. Constitutional Vital Signs, click to edit/add: Last Vital Signs Temp 98.4 F 03/31/25 03:01 Pulse 110 H 03/31/25 03:01 Resp 20 03/31/25 03:01 BP 130/88 03/31/25 03:01 Pulse Ox 97 03/31/25 03:01 O2 Del Method Room Air 03/31/25 03:01 Course Vital Signs Vital signs: Vital Signs Temperature 98.4 F 03/31/25 03:01 Pulse Rate 110 H 03/31/25 03:01 Respiratory Rate 20 03/31/25 03:01 Blood Pressure 130/88 03/31/25 03:01 Pulse Oximetry 97 03/31/25 03:01 Oxygen Delivery Method Room Air 03/31/25 03:01 Temperature 98.4 F 03/31/25 03:01 Pulse Rate 110 H 03/31/25 03:01 Respiratory Rate 20 03/31/25 03:01 Blood Pressure 130/88 03/31/25 03:01 Pulse Oximetry 97 03/31/25 03:01 Oxygen Delivery Method Room Air 03/31/25 03:01 Medical Decision Making MDM Narrative Medical decision making narrative: Patient is a 19-year-old female presenting to the emergency department with a 1 week history of vaginal bleeding, acutely worsening over the last 3 hours. On review of external documentation, patient had an ultrasound during this performed on 03/02/2025 that demonstrated single IUP with no heart rate, subchorionic bleed. She is scheduled to undergo D&C for this spontaneous in 2 days with her ADJUNCT WRITING INSTRUCTOR. Her blood type is O+. Patient's vital signs on arrival are significant for mild tachycardia, otherwise were within normal limits. She is afebrile and hemodynamically stable. Examination was notable for mild tenderness to palpation about the lower abdomen without peritoneal signs. She does not appear to be significantly anemic without conjunctival pallor. Pelvic examination demonstrated mild amount of bleeding from the cervical os. Patient's vaginal bleeding is likely consistent with her known diagnosis of a spontaneous . Other considerations include retained products of conception. She is afebrile with no foul-smelling discharge, low concern for septic . IV was established and laboratory studies were obtained. She was given 1g oral Tylenol and 1L IV normal saline bolus for treatment. Laboratory studies were unremarkable. No significant electrolyte or metabolic derangement. No evidence of acute kidney injury. No anemia, leukocytosis, or thrombocytopenia. Her beta quantitative hCG level is appropriately declining. Her quantitative hCG today is 7204, down from 19,088 from 1 week ago. On reevaluation, the patient is having only mild vaginal bleeding. She remains hemodynamically stable. Her repeat vital signs demonstrated resolution of her tachycardia (heart rate is now 86). I do believe she is stable for outpatient follow-up with her ADJUNCT WRITING INSTRUCTOR. She has an appointment for D&C in 2 days. Return precautions were given including any new or concerning symptoms, such as significantly worsening vaginal bleeding. Patient understands and agrees to plan. FINAL IMPRESSION: #Acute vaginal bleeding in the setting of first trimester spontaneous DISPOSITION: Discharged home CONDITION: Fair Medical Records Medical records reviewed: Yes I reviewed the patient's medical records Lab Data Lab results reviewed: Yes I reviewed the patient's lab results Labs: Lab Results 03/31/25 Range/Units 03:25 WBC 13.0 H (4.0-11.0) 10^3/uL RBC 4.99 (4.20-5.40) 10^6/uL Hgb 13.8 (12.0-16.0) g/dL Hct 40.3 (36.0-48.0) % MCV 80.8 L (81.0-99.0) fL MCH 27.7 (26.7-34.0) pg MCHC 34.2 (29.9-35.2) g/dL RDW 13.1 (11.0-15.0) % Plt Count 389 (150-450) 10^3/uL MPV 10.4 (9.5-13.5) fL Sodium 134 L (136-145) mmol/L Potassium 3.7 (3.5-5.1) mmol/L Chloride 102 (98-107) mmol/L Carbon Dioxide 24.7 (21.0-32.0) mmol/L Anion Gap 11.0 BUN 7.0 (7.0-18.0) mg/dL Creatinine 0.67 (0.55-1.02) mg/dL Est GFR ( Amer) >60 (>=60 mL/min/1.73m^2) Est GFR (Non-Af Amer) >60 (>=60 mL/min/1.73m^2) BUN/Creatinine Ratio 10.4 Glucose 111 H (74-106) mg/dL Calcium 8.9 (8.5-10.1) mg/dL HCG, Quant 7204 mIU/mL Discharge Plan Discharge Chief Complaint: Vaginal Bleeding Clinical Impression: Vaginal bleeding, Spontaneous Patient Disposition: Home, Self-Care Time of Disposition Decision: 04:28 Condition: Fair Mode of Transportation: Private Vehicle Prescriptions / Home Meds: No Action No Known Home Medications Print Language: Spanish Instructions: Miscarriage (ED) Referrals: Physician,Non-Staff, MD [Primary Care Provider] - 1 week
[2025-03-31 03:47] LABS: Hematocrit 40.3 % (36.0-48.0); Hemoglobin 13.8 g/dL (12.0-16.0); Mean Corpuscular HGB Conc 34.2 g/dL (29.9-35.2); Mean Corpuscular Hemoglobin 27.7 pg (26.7-34.0); Mean Corpuscular Volume 80.8 fL (81.0-99.0); Platelet Count 389 10^3/uL (150-450); Red Blood Count 4.99 10^6/uL (4.20-5.40); White Blood Count 13.0 10^3/uL (4.0-11.0)
[2025-03-31] MEDS: ACETAMINOPHEN 500 MG TABLET 1000 MG PO (04:10)
[2025-03-31] MEDS: 0.9 % SODIUM CHLORIDE 1,000 ML 1000 ML IV (04:11)
[2025-03-31 04:15] LABS: Anion Gap 11.0; Blood Urea Nitrogen 7.0 mg/dL (7.0-18.0); Calcium 8.9 mg/dL (8.5-10.1); Carbon Dioxide 24.7 mmol/L (21.0-32.0); Chloride 102 mmol/L (98-107); Estimated GFR (African America >60 (>=60 mL/min/1.73m^2); Estimated GFR (Non-African Ame >60 (>=60 mL/min/1.73m^2); Glucose 111 mg/dL (74-106); Potassium 3.7 mmol/L (3.5-5.1); Sodium 134 mmol/L (136-145)
[2025-03-31 05:28] VITALS: BP 96/47; PULSE 80; O2SAT 99
== END 2025-03-31 05:45 | disposition home or self-care (01) ==
PROVIDERS: Emergency Provider Student in an Organized Health Care Education/Training Program
DX: O03.9 Complete or unspecified spontaneous abortion without complication (principal); Z87.891 Personal history of nicotine dependence
CPT/HCPCS: 36415; 80048; 84702; 85027; 96374; 99284; J2405

== ENCOUNTER 2025-04-01 08:52 | Outpatient (OUT) | payer OTHER, SELFPAY ==
--- OUTSIDE RECORDS SUMMARY | 2025-04-01 09:04 | XMS_ITS | CCD ---
Author Organization [facility] Care Team Providers Care Supervisor Capacitor Processing Name Role Phone LENO LIND Admitting Unavailable [...] Unavailable MAGDI ., DR REYES Admitting Unavailable [place], DR [place]IA Portillo Consulting Unavailable MAGDI ., DR REYES Consulting Unavailable MAGDI ., DR REYES Attending Unavailable MAGDI ., DR REYES Consulting Unavailable MAGDI ., DR REYES Admitting Unavailable Jenise Miller Unavailable Gilberto Fairbanks DO Unavailable Latoya SCHMIDT Attending Unavailable Unavailable Primary Care Provider Unavailgeovanna SARMIENTO FAMILY, PHYSICIAN Primary Care Provider Unava ilable Leny Amezcua APRN Attending Provider GILBERTO FAIRBANKS Attending Unavailable GILBERTO FAIRBANKS Referring Unavailable MAR DUARTE Attending Unavailable Allergies Allergy Classification Reported Allergen(s) Allergy Type Date of Onset Reaction(s) Facility (13 sources) Lactose; Translations: [Unknown] Drug Allergy 09-14-2019 [facility] Three Repository Medications Current Medications Medication Drug [...] 1 capsule by mouth once daily Pnv 442-[id number]-[id number]-Dha 90 mg iron- 1 mg-200 mg capsule [...] as needed acetaminophen (TYLENOL) tablet 650 mg [id number] 200 actuat albuterol 0.09 mg/actuat metered dose [...] TB PREG QUANT HCGon 025 HCG QUANTITATIVE 48017 mIU/mL [facility] Comment on above: 5-50 0.2-1 WEEK 50-500 1-2 WEEKS 100-5,000 2-3 WEEKS 500-10,000 3-4 WEEKS 1,000-50,000 4-5 WEEKS 10,000-100,000 5-6 WEEKS 15,000-200,000 6-8 WEEKS 10,000-100,000 2-3 MONTHS [facility] PREG QUANT HCGon 025 HCG QUANTITATIVE 00443 mIU/mL [facility] Comment on above: 5-50 0.2-1 WEEK 50-500 1-2 WEEKS 100-5,000 2-3 WEEKS 500-10,000 3-4 WEEKS 1,000-50,000 4-5 WEEKS 10,000-100,000 5-6 WEEKS 15,000-200,000 6-8 WEEKS 10,000-100,000 2-3 MONTHS [facility] US OB TRANSVAGINALon 025 [...] Leny Amezcua on 03-02-2025 Quick Strep (POC) [facility] TBH PREG QUANT HCGon 025 HCG QUANTITATIVE 314 mIU/mL [facility] Comment on above: 5-50 0.2-1 WEEK 50-500 1-2 WEEKS 100-5,000 2-3 WEEKS 500-10,000 3-4 WEEKS 1,000-50,000 4-5 WEEKS 10,000-100,000 5-6 WEEKS 15,000-200,000 6-8 WEEKS 10,000-100,000 2-3 MONTHS [facility] TBH PREG QUANT HCGon 02-11- 025 HCG QUANTITATIVE 127 mIU/mL [facility] Comment on above: 5-50 0.2-1 [...] given: yes Instructions and paperwork completed: yes [place] protocol: Patient states understanding of procedure being [...] office for annual exam unless needed otherwise [facility] [employer] TBH PREG QUANT HCGon 05-24- 024 HCG QUANTITATIVE <1 mIU/mL [facility] Comment on above: 5-50 0.2-1 WEEK 50-500 1-2 WEEKS 100-5,000 2-3 WEEKS 500-10,000 3-4 WEEKS 1,000-50,000 4-5 WEEKS 10,000-100,000 5-6 WEEKS 15,000-200,000 6-8 WEEKS 10,000-100,000 2-3 [facility] [employer] TBH PREG QUANT HCGon 024 HCG QUANTITATIVE <1 mIU/mL [facility] Comment on above: 5-50 0.2-1 WEEK 50-500 1-2 WEEKS 100-5,000 2-3 WEEKS 500-10,000 3-4 WEEKS 1,000-50,000 4-5 WEEKS 10,000-100,000 5-6 WEEKS 15,000-200,000 6-8 WEEKS 10,000-100,000 2-3 MONTHS [facility] [employer] COVID Quick Testingon 2022 Result Negative [employer] Other CULTURE WOUNDon 11-07-2022 CULTURE WOUND Culture Observations : ANAEROBE PRESENT. Isolate 1 Peptostreptococcus anaerobius Light growth of Normal The [facility] Comment on above: Result Comment: EVID ENCE BASED PRACTICE BY [facility] HAS DEMONSTRATED THAT PEPTOSTREPTOCOCCUS SPECIES ARE ROUTINELY SUSCEPTIBLE TO PIPERACILLIN-TAZOBACTAM, CEFOXITIN, ERTAPENEM, IMIPENEM, METRONIDAZOLE AND VARIABLY RESISTANT TO CLINDAMYCIN. Performed By: #### W OUNDCX #### [facility] Laboratory [address] [address] [address] Mayra Barajas US PELVIS AND TRANSVAGon [...] [place] CHANG Date: 2022-03-12 17:19 Normal [facility] CHLAMYDIA/GONOCOCCUS GEOVANNA (SW AB/URINE/PAPon 03-08-2022 Chlamydia trachomatis, GEOVANNA Negative Normal Negative [facility] Comment on above: Performed By: #### C T/NGNA #### [facility] [address] [address] [address] Mayra Barajas Neisseria gonorrhoeae, GEOVANNA Negative Normal Negative [facility] Comment on above: Performed By: #### C T/NGNA #### [facility] [address] [address] [address] Mayra Barajas VAGINITIS/VAGINOSIS DNA PROB Charles 03-07-2022 Ginger species Negative Normal Negative [facility] Comment on above: Performed By: #### V AGINT #### [facility] Laboratory [address] [place] [address] Dr. Mayra Barajas Gardnerella vaginalis Positive Abnormal Negative The [facility] Comment on above: Performed By: #### V AGINT #### [facility] [address] [place], [place] [address] Dr. Mayra Barajas Trichomonas vaginalis Negative Normal Negative The [facility] Comment on above: Performed By: #### V AGINT #### [facility] [address] [place], [place] [address] Dr. Mayra Barajas URINALYSISon 09-17-2019 Bacteria Auto Ql (U) Rare Abnormal None Se en /[facility] Bilirubin Ql (U) Negative Negative [facility] th Clarity Refractometry automated (U) Hazy Abnormal Clear [facility] Color (U) Yellow Colorless, Yellow [facility] Epithelial cells.squamous Auto (Urine sed) [#/Area] <1 [facility] Glucose Auto test strip (U) [Mass/Vol] Negative Negative mg/dL [facility] Hemoglobin Auto test strip Ql (U) Negative Negative [facility] Interpretation and review of laboratory results Abnormal [facility] Ketones (U) [Mass/Vol] Negative Negat meli mg/dL [facility] Leukocyte esterase Auto test strip Ql (U) Negative Negative [facility] h Mucus Auto (Urine sed) [#/Area] Rare None Seen, Rare /lpf [facility] Nitrite Auto test strip Ql (U) Negative Negative [facility] pH (U) 6.0 [pH] [facility] Protein (U) [Mass/Vol] Negative Negat meli mg/dL [facility] RBC Auto (Urine sed) [#/Area] <1 [facility] Specific gravity (U) [Rel density] 1.025 [facility] Urobilinogen (U) [Mass/Vol] <2.0 <2.0 mg/dL [facility] Microscopic examination is performed on all urinalysis samples and only positive findings are reported. The test for blood on the chemical analytic portion of urinalysis may also be positive due to hemoglobinuria and myoglobinuria and if red blood cells are present they are quantified by microscopic examination. [facility] Vital Signs Date Time Vital Sign Value Performing Clinician Facility 03-14-2025 15:12-040 Body mass index (BMI) [Ratio] 38.61 kg/m2 Mar Duarte NP Work Phone: [facility] 03-14-2025 15:12040 Body weight 105.23 kg Mar Duarte NP Work Phone: [facility] 03-14-2025 15:12-0400 Diastolic blood pressure 76 mm[Hg] Mar Loyderly THREAD DRESSER Work Phone: [facility] 03-14-2025 15:12-0400 Systolic blood pressure 122 mm[Hg] Mar Duarte THREAD DRESSER Work Phone: [facility] 03-02-2025 11:33-0400 Body height 167.64 cm PHYSICIAN NO [facility] 03-02-2025 11:33-0400 Body mass index (BMI) [Ratio] 37.3 kg/m2 PHYSICIAN NO [facility] 03-02-2025 11:33-0400 Body temperature 98.3 [degF] PHYSICIAN NO [facility] 03-02-2025 11:33-0400 Body weight 105 kg PHYSICIAN NO [facility] 03-02-2025 11:33-0400 Diastolic blood pressure 68 mm[Hg] PHYSICIAN NO [facility] 03-02-2025 11:33-0400 Heart rate 107 /min PHYSICIAN NO [facility] 03-02-2025 11:33-0400 Respiratory rate 18 /min PHYSICIAN NO [facility] 03-02-2025 11:33-0400 SaO2% (BldA) [Mass fraction] 98 % PHYSICIAN NO [facility] 03-02-2025 11:33-0400 Systolic blood pressure 100 mm[Hg] PHYSICIAN NO [facility] 01-01-2025 09:50-0400 Body mass index (BMI) [Ratio] 38.41 kg/m2 Gilberto Magdi DO Work Phone: [facility] 01-01-2025 09:50-0400 Body weight 104.69 kg Gilbetro Magdi DO Work Phone: [facility] 01-01-2025 09:50-0400 Diastolic blood pressure 74 mm[Hg] Gilberto Magdi DO Work Phone: [facility] 01-01-2025 09:50-0400 Systolic blood pressure 114 mm[Hg] Gilberto Magdi DO Work Phone: [facility] 04-08-2023 16:30-0400 Body height 165.1 cm Jenise Angela Other [employer] Other 04-08-2023 16:30-0400 Body mass index (BMI) [Ratio] 29.15 kg/m2 Jenise Angela Other [employer] Other 04-08-2023 16:30-0400 Body temperature 98 [degF] Jenise Angela Other [employer] Other 04-08-2023 16:30-0400 Body weight 79.47 kg Jenise Angela Other [employer] Other 04-08-2023 16:30-0400 Diastolic blood pressure 67 mm[Hg] Jenise Angela Other [employer] Other 04-08-2023 16:30-0400 SaO2% (BldA) [Mass fraction] 97 % Jenise Angela Other [employer] Other 04-08-2023 16:30-0400 Systolic blood pressure 102 mm[Hg] Jenise Angela Other [employer] Other 02-28-2023 17:00-0400 Body height 167.64 cm Jenise Angela Other [employer] Other 02-28-2023 17:00-0400 Body mass index (BMI) [Ratio] 28.08 kg/m2 Jenise Angela Other [employer] Other 02-28-2023 17:00-0400 Body temperature 97.7 [degF] Jenise Miller Other [employer] Other 02-28-2023 17:00-0400 Body weight 78.93 kg Jenise Miller Other [employer] Other 02-28-2023 17:00-0400 Diastolic blood pressure 72 mm[Hg] Jenise Israelmond Other [employer] Other 02-28-2023 17:00-0400 Respiratory rate 18 /min Jenise Israelmond Other [employer] Other 02-28-2023 17:00-0400 SaO2% (BldA) [Mass fraction] 98 % Jenise Israelmond Other [employer] Other 02-28-2023 17:00-0400 Systolic blood pressure 108 mm[Hg] Jenise Miller Other [employer] Other 09-25-2019 07:41-0400 Body Temperature 97.81 [degF] [facility] 09-25-2019 07:41-0400 BP Diastolic 64 mm[Hg] [facility] 09-25-2019 07:41-0400 BP Systolic 96 mm[Hg] [facility] 09-25-2019 07:41-0400 Pulse (Heart Rate) 80 /min [facility] 09-25-2019 07:41-0400 Pulse Oximetry 99 % [facility] 09-24-2019 09:00-0400 Respiratory Rate 16 /min [facility] 09-14-2019 17:18-0500 BMI (Body Mass Index) 28.29 kg/m2 [facility] 09-14-2019 17:18-0500 Body weight 77.11 kg [facility] 09-14-2019 17:18-0500 Height 165.1 cm [facility] Encounters Encounter Date Encounter Type Care Provider Facility Start: 03-25-2025 End: 03-27-2025 Telephone encounter Mar Loyderly THREAD DRESSER Work Phone: [facility] Start: 03-23-2025 End: 03-23-2025 Clinisync Result Encounter Mar Gerald THREAD DRESSER Work Phone: [facility] Unsolicited Start: 03-23-2025 End: 03-23-2025 Cl[facility]ync Result Encounter Mar Gerald THREAD DRESSER Work Phone: [facility] Unsolicited Start: 03-21-2025 End: 03-21-2025 Cl[facility]ync Result Encounter Mar Gerald THREAD DRESSER Work Phone: [facility] Unsolicited Start: 03-21-2025 End: 03-21-2025 Clinisync Result Encounter Mar Gerald THREAD DRESSER Work Phone: [facility] Unsolicited Start: 03-21-2025 End: 03-27-2025 ambulatory Mar Gerald THREAD DRESSER Work Phone: Not Available Comment on above: examinatio n or test, negative result (Primary Dx) Start: 03-14-2025 End: 03-14-2025 Office outpatient visit 15 minutes Mar Whitely THREAD DRESSER Work Phone: [facility] Comment on above: Vaginal bleeding aff ecting early ([facility]) (Primary Dx); Encounter to discuss test results Start: 03-14-2025 End: 03-14-2025 ambulatory MAR GERALD Not Available Start: 03-07-2025 End: 03-07-2025 ambulatory GILBERTO FAIRBANKS Not Available Start: 03-02-2025 End: 03-02-2025 ambulatory PHYSICIAN GUILLERMINA [facility] Work Phone: Start: 03-02-2025 End: 03-02-2025 Patient encounter procedure Leny Lira WATER TAXI FERRY OPERATOR [facility] Work Phone: Start: [...] 06-05-2024 End: 06-05-2024 ambulatory Latoya Ankit BRAYAN Facility:[facility] Start: 05-24-2024 End: 05-24-2024 Clinisync [...] 04-08-2023 End: 04-08-2023 ambulatory Jenise Miller Other [employer] Other Start: 04-08-2023 Office outpatient vi sit 15 minutes Jenise Israelmond [facility] Start: 02-28-2023 End: 02-28-2023 ambulatory Jenise Miller Other [employer] Other Start: 02-28-2023 Office outpatient vi sit 15 minutes Jenise Israelmond [facility] Start: 11-07-2022 End: 11-07-2022 ambulatory GERBER DOE . Facility:[facility] Start: 03-12-2022 End: 03-13-[address] GILBERTO FAIRBANKS . Facility:[facility] Start: 03-04-2022 End: 03-04-[address] GILBERTO FAIRBANKS . Facility: Start: 09-14-2019 End: 09-25-2019 Evaluation and management of inpatient [facility] Start: 09-14-2019 End: 09-25-2019 Evaluation and management of inpatient [facility] Work Phone: [facility] Procedures Date Procedure Procedure Detail Performing Clinician Start: 03-23-2025 TB[facility] PREG QUANT HCG David Duarte THREAD DRESSER Work Phone: Start: 03-21-2025 TBH PREG QUANT HCG David Duarte THREAD DRESSER Work Phone: Start: 03-02-2025 Quick Strep (POC) [...] 03/27/2025 1:00 PM EDT Ancillary Procedure [facility] [address] [place] [address] [facility] Start: 03-21-2025 End: 03-21-2026 hCG, quantitative hCG, quantitative Lab Routine examination or test, negative result Expected: 03/21/2025 (Approximate), Expires: 03/21/2026 [facility] Work Phone: Comment on above: Expected: 03/21/2025 (Approximate), Expires: 03/21/2026 Start: 03-11-2025 Influenza vaccination [facility] Start: 03-07-2025 End: 03-07-2025 ambulatory 03/07/2025 1:00 PM EDT Initial [facility] [address] [place] [address] [facility] Start: 03-07-2025 End: 03-07-2025 Professional / ancillary services management 03/07/2025 12:30 PM EDT Ancillary Procedure [facility] [address] [place] [id number] [facility] Start: 03-04-2025 End: 03-04-2025 Patient encounter [...] Date Payer Category Payer Private Health Insurance [facility] [id number] 2025 Private Health Insurance [id number] 2023 [facility] BCBS [id number] 2023 Unknown [id number] 2022 Medicaid [id number] 2017 Medicaid [id number] 2017 Medicaid [employer] MEDICAID [employer] MEDICA[employer] xxxxxxxxxxx 2017-Present xxxxxxxxxxx [id number] 2003 Unknown [id number] 2003 Unknown [id number]. 593 2003 Unknown [id number]. 1259 2003 Unknown [id number]. 1259 2003 Unknown [id number] [id number]. 1259 2003 Unknown [id number] [id number]. 1259 2003 Unknown [id number]. 1259 2003 Unknown [id number] [id number]. 1259 1984 Unknown [id number] [id number]. 903 1984 Unknown [id number] [id number]. 593 1959 Unknown [id number] Unknown [id number] Social History Date Type Detail Facility Start: 09-14-2019 End: 05-10-2023 Tobacco smoking status [email or web address] Never smoker [facility] Start: 09-14-2019 Alcohol intake Ex-drinker (finding) [facility] Start: 2005 Sex Assigned At Not on file [facility] Start: 06-23-2023 End: 01-01-2025 Sex Assigned At [facility] [employer] Other Start: 05-10-2023 Tobacco use and exposure Smokeless tobacco non-user [facility] Start: 06-23-2023 End: 03-14-2025 Alcoholic beverage intake Lifetime non-drinker (finding) [facility] Start: 06-23-2023 End: 01-01-2025 History of Social function [facility] Sex Female (finding) [facility] Start: 2005 Sex Assigned At Female F [facility] Clinical Notes 02-28-2023 to 03-25-2025 Telephone Encounter - Mar Duarte NP - 03/25/2025 2:04 PM EDTTelephone Encounter - Mar Duarte NP - 03/25/2025 2:04 PM EDTMar Duarte NP - 03/14/2025 3:00 PM EDT Note Date & Type Note Facility 03-25-[address] er Note Dr. Fairbanks spoke with patient regarding HCG [facility] Work Phone: 03-25-2025 Miscellaneous Notes Formattin g of this note might be different from the original. Dr. Fairbanks spoke with patient regarding HCG documented in this encounter [facility] 03-14-2025 History of Presen t illness Narrative [...] nursing note reviewed. Exam conducted with a broker associate present. Vitals: Estimated body mass index is [...] Mar Duarte NP documented in this encounter [facility] 01-01-2025 History of Presen t illness Narrative [...] nursing note reviewed. Exam conducted with a broker associate present. Vitals: Estimated body mass index is [...] given: yes Instructions and paperwork completed: yes [place] protocol: Patient states understanding of procedure being [...] Gilberto Fairbanks DO documented in this encounter [facility] 04-08-2023 Evaluation note Encounter Date Diagnosis Assessment [...] exacerbation, unspecified whether persistent (ICD-10 - J45.901) [facility] Other 08-21-2023 Evaluation note* Encounter Date Diagnosis [...] dermati tis home care material was printed [employer] Other Evaluation note* Diagnosis Encounter for IUD removal Pelvic pain in female Unspecified symptom associated with female genital organs documented in this encounter [facility] Diagnosis Onset Date Resolution Status Admit Date Cough noneactive March 02, 11:22am Sore throat noneactive March 02, 2025 11:22am [facility] Work Phone: Evaluation note* Diagnosis Vaginal bleeding affecting early ([facility] Primary Encounter to discuss test results Other specified counseling documented in this encounter [facility]* Diagnosis examination or test, negative result- Primary documented in this encounter [facility] Narrative - Reported* Type Description Date Surgical History C section [employer] Other Reason for referral (narrative)No reason for referral [facility] Work Phone: Summary Purpose Family History No Family History Records FoundNo Family History Records FoundNo Family History Records FoundNo Family History Records Found Advance Directives Documents on File Type Date 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 female school student resident of [facility] was brought to [facility] after patient had ingested handful tablets [...] . Patient is visiting her father in [facility] every other weekend and reportedly has [...] <4 cigarettes daily. Disposition: Home Follow Up: [facility] [place] [address] Follow up on 10/05/2019 Appointment time: 11:00am with [facility] for counseling; SURINDER was told to call day before discharge [facility] psychiatry appointment. MARLENI Discharge Diet: Additional [...] custody court date not knowing if the nut dehydrator operator will agree to let her dad be [...] Name: Tong Hinson Admit Date: MR #: [id number] : 2005 Perpetual Assessment Tong Hinson is a 14 y.o. female was seen individually, case discussed with nursing staff, medical records were reviewed. Patient stated that she is anticipating some favorable answer from children's services wool hat finisher as, she had repeatedly mentioned about her [...] 5' 5 Wt 77.1 kg (170 lb) [id number]% BMI 28.29 kg/m Mental Status Evaluation: General [...] LD Dietitian Office * Latoya Dallas MSW EDITOR MANAGING NEWSPAPER - 09/24/2019 10:50 AM EDT Reviewed patient's case with Dr. Lind. Patient is making good progress with symptom management. Dr. Lind estimates that patient may discharge as soon as stable placement is available with confirmation from [facility] ([facility] SURINDER [...] paperwork. She is faxing it over now. ENVIRONMENTAL SERVICES PROJECT MANAGER will place signed form on chart for patient's discharge home with dad tomorrow morning. 3:35pm: ENVIRONMENTAL SERVICES PROJECT MANAGER spoke with patient's father to review the plan to pick patient up tomorrow morning. Father voiced an understanding of this plan and states that he will be at the hospital between 10-10:30am to pick patient up for discharge. staff services manager will continue to follow and assist with discharge planning. * Linda Bingham CTRS - 09/24/2019 10:35 AM EDT [id number] Goal Group: [place] [facility] [place] [facility] [place] [facility] when approached for group, willing [...] Name: Tong Hinson Admit Date: MR #: [id number] : 2005 Perpetual Assessment Tong Hinson is [...] nurse led group over unit rules in [facility]. Sits quietly during group. Does make an [...] call tomorrow and speak with CPS and oncology social work for clarification to her placement following discharge [...] phone. I want to call my CPS employment evaluator/case manager .Pt attempted to contact JUAN CARLOS [...] Name: Tong Hinson Admit Date: MR #: [id number] : 2005 Perpetual Assessment Tong Hinson is [...] Bingham CTRS - 09/22/2019 3:15 PM EDT [id number] Recreation Therapy: Pt out in [facility] when approached for group, willing to participate. Group was taught new leisure skill of large group game of [employer](Left Center Right), to which pt was familiar with. PT recalled directions and required no assist or limits be set. Poor frustration tolerance displayed with peers. Benefits of leisure presented, to which pt not interested. * Linda Bingham CTRS - 09/22/2019 11:00 AM EDT [id number] Goal group: Pt out in [facility] with peers, playing cards, staff supervising, when [...] Name: Tong Hinson Admit Date: MR #: [id number] [facility]erged [facility] #: [id number] : 2005 Perpetual Assessment Tong Hinson is [...] one on one interaction takes place in [facility]. Patient (pt) is casually dressed. Pt states sleep was good. Pt states appetite good Pt denies HI/SI/voices. Pt rates anxiety a 7/10 and depression a 3/10. Pt spends time out in common areas. Pt takes all medications cooperatively. Pt attends all groups. Pt completes ADL's- showers and brushes teeth in the evening. Pt makes good eye contact when speaking. 17:00 exercise [id number], corn hole 18:00 playing ping-pong with peers 18:00 watching Karate kid 19:00 no visitors. Pt talking on telephone 20:00 watching movie 21:30 playing cards 22:30 resting in bed * Latoya Dallas MSW [facility] - 09/21/2019 3:17 PM EDT Received a call back from Aicha Ordoñez at [facility] indicating that she will have a placement for patient settled for patient by Tuesday09/24/19. Her intent is to have mother either sign over custody to patient's biological father voluntarily by then or [facility] will forcibly givecustody to the biological father at that point. Either way, Aicha states that this issue will be resolved by 09/24/19. She will contact ENVIRONMENTAL SERVICES PROJECT MANAGER to confirm that it has been resolved and patient may be discharged on 09/24/19. ENVIRONMENTAL SERVICES PROJECT MANAGER will await her phone confirmation and report to Dr. Lind when itis received. staff services manager will continue to follow and assist with discharge planning. * Latoya Dallas NET MVC DEVELOPERYin KELLY - 09/21/2019 3:09 PM EDT Reviewed patient's case with Dr. Lind. Patient is making gradual, steady progress with symptom management. Dr. Lind is unable to estimate patient discharge at this point as patient is unable to discharge to mother (apartment leasing specialist/guardian) care per [facility] as they have deemed her home unsafefor patient, but there is no other approved respiratory care assistant at this point. ENVIRONMENTAL SERVICES PROJECT MANAGER has left message for Aicha requesting update on this situation. Awaiting feedback from [facility] worker - Aicha Ordoñez. Met with patient on unit to monitor treatment progress. Patient has been compliant with meds and attending group therapies with appropriate participation. Patient denies any social service needs at this time. staff services manager will continue to follow and assist with discharge planning. * Linda Bingham, BROCK - 09/21/2019 3:00 PM EDT 2212-3379 Recreation Therapy Pt out in lounge with [...] well with this peers. * Cynthia David, COLLEGE FOOTBALL COACH - 09/21/2019 2:15 PM EDT Life Skills: [...] Bingham [facility] - 09/21/2019 10:40 AM EDT 3320-3299 Goal Group: PT out in [facility] with peers and RN when approached for [...] situation and DL Anne went tosit [facility] constant supervision. HARRY Wooten voiced argreance [...] Name: Tong Hinson Admit Date: MR #: [id number] : 2005 Perpetual Assessment Tong Hinson is [...] pt in bed resting * Latoya Dallas NET MVC DEVELOPER EDITOR MANAGING NEWSPAPER - 09/20/2019 3:47 PM EDT Reviewed patient's case with Dr. Lind. Patient is making gradual, steady progress with symptom management. Dr. Lind estimates that patient will be ready for discharge in 2-3 days. Met with patient on unit to monitor treatment progress.Patient has been compliant with meds and attending group therapies with appropriate participation. Patient's [facility] worker has indicated that patient may NOT return to her mother's care. They are working on alternative placement for patient upon discharge from hospital. Patient is hopeful that she will be allowed to discharge to her biological father's care at the end of inpatient stay. ENVIRONMENTAL SERVICES PROJECT MANAGER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
== END 2025-04-01 08:53 | disposition home or self-care (01) ==
LOC: PST 08:52
PROVIDERS: Visit Provider Obstetrics & Gynecology
DX: Z01.812 Encounter for preprocedural laboratory examination (principal); O02.1 Missed abortion
CPT/HCPCS: 86850; 86900; 86901

== ENCOUNTER 2025-04-02 06:17 | Day surgery (SDC) | payer OTHER, SELFPAY ==
[2025-04-01 09:37] VITALS: BP 110/73; PULSE 85; TEMP 36.4; O2SAT 98; BMI 37.2
[2025-04-02] VITALS (12 sets, daily range): BP systolic 106–123; BP diastolic 72–80; PULSE 70–101; TEMP 36.1–36.9; O2SAT 94–98; BMI 37.0
--- OUTSIDE RECORDS SUMMARY | 2025-04-02 06:20 | XMS_ITS | CCD ---
Author Organization [facility] Care Team Providers Care Acid Splicer Name Role Phone LENO LIND Admitting Unavailable [...] Unavailable MAGDI ., DR REYES Admitting Unavailable [place], DR GEORGIA Portillo Consulting Unavailable MAGDI ., DR REYES Consulting Unavailable MAGDI ., DR REYES Attending Unavailable MAGDI ., DR REYSE Consulting Unavailable MAGDI ., DR REYES Admitting Unavailable Jenise Miller Unavailable Gilberto Fairbanks DO Unavailable Latoya SCHMIDT Attending Unavailable Unavailable Primary Care Provider Unavailgeovanna SARMIENTO FAMILY, PHYSICIAN Primary Care Provider Unava ilable Leny Amezcua APRN Attending Provider GILBERTO FAIRBANKS Attending Unavailable GILBERTO FAIRBANKS Referring Unavailable MAR DUARTE Attending Unavailable Allergies Allergy Classification Reported Allergen(s) Allergy Type Date of Onset Reaction(s) Facility (14 sources) Lactose; Translations: [Unknown] Drug Allergy 09-14-2019 [facility] Three Repository Medications Current Medications Medication [...] 1 capsule by mouth once daily Pnv 095-Blaf-Lyzbmo-Dha 90 mg iron- 1 mg-200 mg capsule [...] as needed acetaminophen (TYLENOL) tablet 650 mg [id number] 200 actuat albuterol 0.09 mg/actuat metered dose [...] Test Name Value Interpretation Reference Range Facility ALL TYPE AND SCREENon 2024 ABO and Rh group Nom (Bld) Blood group O Rh(D) positive [facility] TBH PREG QUANT HCGon 025 HCG QUANTITATIVE 64989 mIU/mL [facility] ltare Comment on above: 5-50 0.2-1 WEEK 50-500 1-2 WEEKS 100-5,000 2-3 WEEKS 500-10,000 3-4 WEEKS 1,000-50,000 4-5 WEEKS 10,000-100,000 5-6 WEEKS 15,000-200,000 6-8 WEEKS 10,000-100,000 2-3 MONTHS [facility] TBH PREG QUANT HCGon 025 HCG QUANTITATIVE 43722 mIU/mL [facility] ltare Comment on above: 5-50 0.2-1 WEEK 50-500 1-2 WEEKS 100-5,000 2-3 WEEKS 500-10,000 3-4 WEEKS 1,000-50,000 4-5 WEEKS 10,000-100,000 5-6 WEEKS 15,000-200,000 6-8 WEEKS 10,000-100,000 2-3 MONTHS CLINISYTX [facility] Health[facility] e US OB TRANSVAGINALon 025 [...] Leny Amezcua on 03-02-2025 Quick Strep (POC) [facility] TBH PREG QUANT HCGon 025 HCG QUANTITATIVE 314 mIU/mL [facility] l[facility] Comment on above: 5-50 0.2-1 WEEK 50-500 1-2 WEEKS 100-5,000 2-3 WEEKS 500-10,000 3-4 WEEKS 1,000-50,000 4-5 WEEKS 10,000-100,000 5-6 WEEKS 15,000-200,000 6-8 WEEKS 10,000-100,000 2-3 MONTHS CLINISYNC [facility] Health[facility] e TBH PREG QUANT HCGon -04-2 025 HCG QUANTITATIVE 127 mIU/mL [facility] lthcare Comment on above: 5-50 0.2-1 WEEK 50-500 1-2 WEEKS 100-5,000 2-3 WEEKS 500-10,000 3-4 WEEKS 1,000-50,000 4-5 WEEKS 10,000-100,000 5-6 WEEKS 15,000-200,000 6-8 WEEKS 10,000-100,000 2-3 MONTHS [facility] US PELVIC COMPLETE W/ TVon 0 - US PELVIC COMPLETE W/ TV FINDINGS: Uterus [...] given: yes Instructions and paperwork completed: yes [place] protocol: Patient states understanding of procedure being [...] office for annual exam unless needed otherwise [facility] [employer] e TBH PREG QUANT HCGon 024 HCG QUANTITATIVE <1 mIU/mL [facility] Comment on above: 5-50 0.2-1 WEEK 50-500 1-2 WEEKS 100-5,000 2-3 WEEKS 500-10,000 3-4 WEEKS 1,000-50,000 4-5 WEEKS 10,000-100,000 5-6 WEEKS 15,000-200,000 6-8 WEEKS 10,000-100,000 2-3 MONTHS [facility] [employer] [facility] TBH PREG QUANT HCGon 024 HCG QUANTITATIVE <1 mIU/mL [facility] Comment on above: 5-50 0.2-1 WEEK 50-500 1-2 WEEKS 100-5,000 2-3 WEEKS 500-10,000 3-4 WEEKS 1,000-50,000 4-5 WEEKS 10,000-100,000 5-6 WEEKS 15,000-200,000 6-8 WEEKS 10,000-100,000 2-3 MONTHS [facility] [employer] [facility] COVID Quick Testingon 2022 Result Negative [facility] Other CULTURE WOUNDon 11-07-2022 CULTURE WOUND Culture Observations : ANAEROBE PRESENT. Isolate 1 Peptostreptococcus anaerobius Light growth of Normal [facility] Comment on above: Result Comment: EVID ENCE BASED PRACTICE BY [facility] HAS DEMONSTRATED THAT PEPTOSTREPTOCOCCUS SPECIES ARE ROUTINELY SUSCEPTIBLE TO PIPERACILLIN-TAZOBACTAM, CEFOXITIN, ERTAPENEM, IMIPENEM, METRONIDAZOLE AND VARIABLY RESISTANT TO CLINDAMYCIN. Performed By: #### W OUNDCX #### [facility] [address] [place] [address] Dr. Mayra Barajas US PELVIS AND TRANSVAGon [...] [place] CHANG Date: 2022-03-12 17:19 Normal [facility] CHLAMYDIA/GONOCOCCUS GEOVANNA (SW AB/URINE/PAPon 03-08-2022 Chlamydia trachomatis, GEOVANNA Negative Normal Negative [facility] Comment on above: Performed By: #### C T/NGNA #### [facility] [address] [place] [address] Dr. Mayra Barajas Neisseria gonorrhoeae, GEOVANNA Negative Normal Negative [facility] Comment on above: Performed By: #### C T/NGNA #### [facility] [address] [place] [address] [address] Mayra Barajas VAGINITIS/VAGINOSIS DNA PROB Charles 03-07-2022 Ginger species Negative Normal Negative [facility] Comment on above: Performed By: #### V AGINT #### [facility] [address] [address] [address] Mayra Barajas Gardnerella vaginalis Positive Abnormal Negative [facility] Comment on above: Performed By: #### V AGINT #### [facility] [address] [address] [address] Mayra Barajas Trichomonas vaginalis Negative Normal Negative [facility] Comment on above: Performed By: #### V AGINT #### [facility] [address] [address] [address] Mayra Barajas URINALYSISon 09-17-2019 Bacteria Auto Ql (U) Rare Abnormal None Se en /hpf [facility] Bilirubin Ql (U) Negative Negative [facility] th Clarity Refractometry automated (U) Hazy Abnormal Clear [facility] Color (U) Yellow Colorless, Yellow [facility] Epithelial cells.squamous Auto (Urine sed) [#/Area] <1 [facility] Glucose Auto test strip (U) [Mass/Vol] Negative Negative mg/dL [facility] Hemoglobin Auto test strip Ql (U) Negative Negative [facility] Interpretation and review of laboratory results Abnormal [facility] Ketones (U) [Mass/Vol] Negative Negat meli mg/dL [facility] Leukocyte esterase Auto test strip Ql (U) Negative Negative [facility] h Mucus Auto (Urine sed) [#/Area] Rare None Seen, Rare /lpf [facility] Nitrite Auto test strip Ql (U) Negative Negative [facility] pH (U) 6.0 [pH] [facility] Protein (U) [Mass/Vol] Negative Negat meli mg/dL [facility] RBC Auto (Urine sed) [#/Area] <1 [facility] Specific gravity (U) [Rel density] 1.025 [facility] Urobilinogen (U) [Mass/Vol] <2.0 <2.0 mg/dL [facility] Microscopic examination is performed on all urinalysis samples and only positive findings are reported. The test for blood on the chemical analytic portion of urinalysis may also be positive due to hemoglobinuria and myoglobinuria and if red blood cells are present they are quantified by microscopic examination. [facility] Vital Signs Date Time Vital Sign Value Performing Clinician Facility 03-14-2025 15:12-0400 Body mass index (BMI) [Ratio] 38.61 kg/m2 Mar Duarte [employer]ING [employer] Work Phone: [facility] 03-14-2025 15:12-0400 Body weight 105.23 kg Mar Duarte [employer] Work Phone: [facility] 03-14-2025 15:12-0400 Diastolic blood pressure 76 mm[Hg] Mar Duarte [employer]ING [employer] T[employer] Work Phone: [facility] 03-14-2025 15:12-0400 Systolic blood pressure 122 mm[Hg] Mar Duarte [employer]ING [employer] Work Phone: [facility] 03-02-2025 11:33-0400 Body height 167.64 cm PHYSICIAN NO [facility] 03-02-2025 11:33-0400 Body mass index (BMI) [Ratio] 37.3 kg/m2 PHYSICIAN NO [facility] 03-02-2025 11:33-0400 Body temperature 98.3 [degF] PHYSICIAN NO [facility] 03-02-2025 11:33-0400 Body weight 105 kg PHYSICIAN NO [facility] 03-02-2025 11:33-0400 Diastolic blood pressure 68 mm[Hg] PHYSICIAN NO [facility] 03-02-2025 11:33-0400 Heart rate 107 /min PHYSICIAN NO [facility] 03-02-2025 11:33-0400 Respiratory rate 18 /min PHYSICIAN NO [facility] 03-02-2025 11:33-0400 SaO2% (BldA) [Mass fraction] 98 % PHYSICIAN NO [facility] 03-02-2025 11:33-0400 Systolic blood pressure 100 mm[Hg] PHYSICIAN NO [facility] 01-01-2025 09:50-0400 Body mass index (BMI) [Ratio] 38.41 kg/m2 Gilberto Magdi DO Work Phone: [facility] 01-01-2025 09:50-0400 Body weight 104.69 kg Gilberto Magdi DO Work Phone: [facility] 01-01-2025 09:50-0400 Diastolic blood pressure 74 mm[Hg] Gilberto Magdi DO Work Phone: [facility] 01-01-2025 09:50-0400 Systolic blood pressure 114 mm[Hg] Gilberto Magdi DO Work Phone: [facility] 04-08-2023 16:30-0400 Body height 165.1 cm Jenise Angela Other [facility] Other 04-08-2023 16:30-0400 Body mass index (BMI) [Ratio] 29.15 kg/m2 Jenise Angela Other [facility] Other 04-08-2023 16:30-0400 Body temperature 98 [degF] Jenise Angela Other [facility] Other 04-08-2023 16:30-0400 Body weight 79.47 kg Jenise Angela Other [facility] Other 04-08-2023 16:30-0400 Diastolic blood pressure 67 mm[Hg] Jenise Angela Other [facility] Other 04-08-2023 16:30-0400 SaO2% (BldA) [Mass fraction] 97 % Jenise Angela Other [facility] Other 04-08-2023 16:30-0400 Systolic blood pressure 102 mm[Hg] Jenise Angela Other [facility] Other 02-28-2023 17:00-0400 Body height 167.64 cm Jenise Angela Other [facility] Other 02-28-2023 17:00-0400 Body mass index (BMI) [Ratio] 28.08 kg/m2 Jenise Angela Other [facility] Other 02-28-2023 17:00-0400 Body temperature 97.7 [degF] Jenise Israelmond Other [facility] Other 02-28-2023 17:00-0400 Body weight 78.93 kg Jenise Angela Other [facility] Other 02-28-2023 17:00-0400 Diastolic blood pressure 72 mm[Hg] Jenise Israelmond Other [facility] Other 02-28-2023 17:00-0400 Respiratory rate 18 /min Jenise Israelmond Other [facility] Other 02-28-2023 17:00-0400 SaO2% (BldA) [Mass fraction] 98 % Jenise Israelmond Other [facility] Other 02-28-2023 17:00-0400 Systolic blood pressure 108 mm[Hg] Jenise Israelmond Other [facility] Other 09-25-2019 07:41-0400 Body Temperature 97.81 [degF] [facility] 09-25-2019 07:41-0400 BP Diastolic 64 mm[Hg] [facility] 09-25-2019 07:41-0400 BP Systolic 96 mm[Hg] [facility] 09-25-2019 07:41-0400 Pulse (Heart Rate) 80 /min [facility] 09-25-2019 07:41-0400 Pulse Oximetry 99 % [facility] 09-24-2019 09:00-0400 Respiratory Rate 16 /min [facility] 09-14-2019 17:18-0500 BMI (Body Mass Index) 28.29 kg/m2 [facility] 09-14-2019 17:18-0500 Body weight 77.11 kg [facility] 09-14-2019 17:18-0500 Height 165.1 cm [facility] Encounters Encounter Date Encounter Type Care Provider Facility Start: 04-01-2025 End: 04-01-2025 Clinis[facility] Result Encounter Gilberto Magdi DO Work Phone: [facility] External Department Unsolicited Start: 04-01-2025 End: 04-01-2025 [facility]ync Result Encounter Gilberto Medranozio DO Work Phone: [facility] External [facility] Unsolicited Start: 03-25-2025 End: 03-27-2025 Telephone encounter Mar Duarte [employer] Work Phone: [facility] Start: 03-23-2025 End: 03-23-2025 [facility] Result Encounter Mar Gerald [employer] Work Phone: [facility] External Department Unsolicited Start: 03-23-2025 End: 03-23-2025 [facility] Result Encounter Mar Gerald [employer] Work Phone: [facility] External Department Unsolicited Start: 03-21-2025 End: 03-21-2025 Clinisync Result Encounter Mar Gerald [employer] Work Phone: [facility] External Department Unsolicited Start: 03-21-2025 End: 03-21-2025 Clinisync Result Encounter Mar Gerald [employer] Work Phone: [facility] External Department Unsolicited Start: 03-21-2025 End: 03-27-2025 ambulatory Mar Gerald [employer] Work Phone: Not Available Comment on above: examinatio n or test, negative result (Primary Dx) Start: 03-14-2025 End: 03-14-2025 Office outpatient visit 15 minutes Mar Duarte [employer] Work Phone: [facility] Comment on above: Vaginal bleeding aff ecting early ([facility]-HCC) (Primary Dx); Encounter to discuss test results Start: 03-14-2025 End: 03-14-2025 ambulatory MAR DUARTE Not Available Start: 03-07-2025 End: 03-07-2025 ambulatory GILBERTO MAGDI Not Available Start: 03-02-2025 End: 03-02-2025 ambulatory PHYSICIAN GUILLERMINA [facility] Work Phone: Start: 03-02-2025 End: 03-02-2025 Patient encounter procedure Leny Amezcua Soraya EP TECH [facility] Work Phone: Start: [...] Available Start: 06-05-2024 End: 06-05-2024 ambulatory Latoya Pham BRAYAN Facility:[facility] Start: 05-24-2024 End: 05-24-2024 [...] Unsolicited Start: 04-08-2023 End: 04-08-2023 ambulatory Jenise Angela Other [facility] Other Start: 04-08-2023 Office outpatient vi sit 15 minutes Jenisejoao Miller [facility] Start: 02-28-2023 End: 02-28-2023 ambulatory Jenise Miller Other [facility] Other Start: 02-28-2023 Office outpatient vi sit 15 minutes Jenise Angela [facility] Start: 11-07-2022 End: 11-07-2022 ambulatory GERBER DOE . Facility:[facility] Start: 03-12-2022 End: 03-13-[address] GILBERTO FAIRBANKS . Facility:[facility] Start: 03-04-2022 End: 03-04-[address] GILBERTO FAIRBANKS . Facility: Start: 09-14-2019 End: 09-25-2019 Evaluation and management of inpatient LENO LIND [facility] Start: 09-14-2019 End: 09-25-2019 Evaluation and management of inpatient Leno Lind Work Phone: [facility] Procedures Date Procedure Procedure Detail Performing Clinician Start: 04-01-2025 Antibody screen Gilberto F azio DO Work Phone: Start: 04-01-2025 ALL TYPE AND SCREEN Cor ey Magdi DO Work Phone: Start: 03-23-2025 TBH PREG QUANT HCG David obed Gerald [employer] TENDER Work Phone: Start: 03-21-2025 TBH PREG QUANT HCG David obed Duarte [employer] Work Phone: Start: 03-02-2025 Quick Strep (POC) [...] 03/27/2025 1:00 PM EDT Ancillary Procedure [facility] [address] [place] [address] [facility] Start: 03-21-2025 End: 03-21-2026 hCG, quantitative hCG, quantitative Lab Routine examination or test, negative result Expected: 03/21/2025 (Approximate), Expires: 03/21/2026 [facility] Work Phone: Comment on above: Expected: 03/21/2025 (Approximate), Expires: 03/21/2026 Start: 03-11-2025 Influenza vaccination [facility] Start: 03-07-2025 End: 03-07-2025 ambulatory 03/07/2025 1:00 PM EDT Initial [facility] [address] [place] [address] [facility] Start: 03-07-2025 End: 03-07-2025 Professional / ancillary services management 03/07/2025 12:30 PM EDT Ancillary Procedure [facility] [address] [place] [address] [facility] Start: 03-04-2025 End: 03-04-2025 Patient encounter procedure [facility] Start: 01-21-2025 End: 01-21-2025 Professional / ancillary services management 01/21/2025 2:30 PM EDT Ancillary Procedure [facility] [address] [place] [address] [facility] Start: 01-01-2025 End: 07-03-2025 US Pelvis US Pelvis w/ TV Imaging Routine Pelvic pain in female Expected: 01/01/2025, Expires: 07/03/2025 [facility] Work Phone: Comment on above: Expected: 01/01/2025 , Expires: 07/03/2025 Start: 03-11-2024 Influenza vaccination Influenza Vacc ine (#1) [facility] Payers Date Payer Category Payer Private Health Insurance [facility] [id number] 2025 Private Health Insurance [id number] 2023 [facility] Cross [facility] [id number] 2023 Unknown [id number] 2022 Medicaid [id number] 2017 Medicaid [id number] 2017 Medicaid [employer] MEDICA[employer] MEDICAID xxxxxxxxxxx 2017-Present xxxxxxxxxxx [id number] 2003 Unknown [id number] 2003 Unknown [id number] 593 2003 Unknown [id number]. 1259 2003 Unknown [id number]. 1259 2003 Unknown [id number]. 1259 2003 Unknown [id number]. 1259 2003 Unknown [id number] [id number]. 1259 2003 Unknown [id number] [id number]. 1259 1984 Unknown [id number] [id number]. 903 1984 Unknown [id number]. 593 1959 Unknown [id number] Unknown [id number] Social History Date Type Detail Facility Start: 09-14-2019 End: 05-10-2023 Tobacco smoking status NHIS Never smoker [facility] Start: 09-14-2019 Alcohol intake Ex-drinker (finding) [facility] Start: 2005 [facility] Start: 06-23-2023 End: 01-01-2025 Sex Assigned At [facility] [employer] Other Start: 05-10-2023 Tobacco use and exposure Smokeless tobacco non-user [facility] Start: 06-23-2023 End: 03-14-2025 Alcoholic beverage intake Lifetime non-drinker (finding) [facility] Start: 06-23-2023 End: 01-01-2025 History of Social function [facility] Healthcare Sex Female (finding) [facility] Start: 2005 Sex Assigned At Female [facility] Clinical Notes 02-28-2023 to 03-25-2025 Telephone Encounter - Mar Duarte NP - 03/25/2025 2:04 PM EDTTelephone Encounter - Mar Duarte NP - 03/25/2025 2:04 PM EDTMar Duarte NP - 03/14/2025 3:00 PM EDT Note Date & Type Note Facility 03-25-[address] er Note Dr. Fairbanks spoke with patient regarding HCG [facility] Work Phone: 03-25-2025 Miscellaneous Notes Formattin g of this note might be different from the original. Dr. Fairbanks spoke with patient regarding HCG documented in this encounter [facility] 03-14-2025 History of Presen t illness Narrative [...] nursing note reviewed. Exam conducted with a plastic tile setter present. Vitals: Estimated body mass index is [...] Mar Duarte NP documented in this encounter [facility] 01-01-2025 History of Presen t illness Narrative [...] nursing note reviewed. Exam conducted with a plastic tile setter present. Vitals: Estimated body mass index is [...] given: yes Instructions and paperwork completed: yes [place] protocol: Patient states understanding of procedure being [...] Gilberto Fairbanks DO documented in this encounter [facility] 04-08-2023 Evaluation note Encounter Date Diagnosis Assessment [...] exacerbation, unspecified whether persistent (ICD-10 - J45.901) [facility] Other 08-21-2023 Evaluation note* Encounter Date Diagnosis [...] dermati tis home care material was printed [facility] Other Evaluation note* Diagnosis Encounter for IUD removal Pelvic pain in female Unspecified symptom associated with female genital organs documented in this encounter [facility] HealthcareEvaluation note* Diagnosis Onset Date Resolution Status Admit Date Cough noneactive March 02, 11:22am Sore throat noneactive March 02, 2025 11:22am [facility] Work Phone: Evaluation note* Diagnosis Vaginal bleeding affecting early ([facility])- Primary Encounter to discuss test results Other specified counseling documented in this encounter [facility] HealthcareEvaluation note* Diagnosis examination or test, negative result- Primary documented in this encounter [facility] HealthcareHistory general Narrative - Reported* Type Description Date Surgical History C section [facility] Other Reason for referral (narrative)No reason for referral information [facility] Work Phone: Summary Purpose Family History No Family History Records FoundNo Family History Records FoundNo Family History Records FoundNo Family History Records Found Advance Directives Documents on File Type Date Recorded Patient Zigzag Stitcher Sonia oliveira Advance Directives and Renuka torres Will 09/21/2019 11:52 AM Latest Code Status on File Code Status Date Activated Date Inactivated Comments Full Code - Unverified 09/14/2019 6:56 PM 09/25/2019 12:3 6 PM Advance Directive Response Recorded Date/ Time Advance Directives No September 12 6:05pm Hospital Course * Leno Lind MD - 09/25/2019 10:05 AM EDT Inpatient Psychiatry Discharge Summary Patient Name: Tong Hinson MR #: [id number] : 2005 Admit Date: Discharge Date: 09/25/2019 Clinical Summary Reason for Hospitalization: Tong Hinson is a 14 y.o. female school student resident of [facility] was brought to [facility] after patient had ingested handful [...] . Patient is visiting her father in [place] every other weekend and reportedly [...] <4 cigarettes daily. Disposition: Home Follow Up: [facility] - [address] [address] Follow up on 10/05/2019 Appointment time: 11:00am with N[place] for counseling; SURINDER was told to call day before discharge [facility] psychiatry appointment. MARLENI Discharge Diet: Additional Information: [...] custody court date not knowing if the motor pool clerk will agree to let her dad be [...] Name: Tong Hinson Admit Date: MR #: [id number] : 2005 Perpetual Assessment Tong Hinson is a 14 y.o. female was seen individually, case discussed with nursing staff, medical records were reviewed. Patient stated that she is anticipating some favorable answer from children's services telephone switchboard operator as, she had repeatedly mentioned about her [...] 5' 5 Wt 77.1 kg (170 lb) [id number]% BMI 28.29 kg/m Mental Status Evaluation: General [...] Estimating Needs: 1.1gm/kg adj Kris Zhao MS, LIN, LD Dietitian Office * Latoya Dallas MSW LSW - 09/24/2019 10:50 AM EDT Reviewed patient's case with Dr. Lind. Patient is making good progress with symptom management. Dr. Lind estimates that patient may discharge as soon as stable placement is available with confirmation from [facility] ([facility]). SURINDER is awaiting [facility] for patient with her biological father has been resolved. 11:35am: CLINICAL NURSE spoke to Aicha from [facility] who affirmed that patient's mother has finally consented to voluntarily allow patient to stay with her biological father Henok and step mother Sandee while she works a case plan with [facility]. Biological mother will retain custody in this process while SCCSoversees mother's behavior. Aicha did indicate that in the meantime father is filing for full custody on his own. But this at least allows dad to take patient home with him when patient is ready todischarge from the hospital. CLINICAL NURSE affirmed that this is fine; however, we [...] who agreed that this seemed reasonable. 2:35pm: CLINICAL NURSE received a call back from Aicha indicating that she made it back from mom's home with the signed paperwork. She is faxing it over now. CLINICAL NURSE will place signed form on chart for patient's discharge home with dad tomorrow morning. 3:35pm: SURINDER spoke with patient's father to review the plan to pick patient up tomorrow morning. Father voiced an understanding of this plan and states that he will be at the hospital between 10-10:30am to pick patient up for discharge. rn medical inpatient services will continue to follow and assist with discharge planning. Linda Block, INSPECTOR FILTERS - 09/24/2019 10:35 AM EDT 8245-3341 Goal Group: PT out in lounge with [...] sleeping and anxiety at bedtime , this clinical writer administered Atarax 25 mg, patient tolerated [...] Name: Tong Hinson Admit Date: MR #: [id number] : 2005 Perpetual Assessment Tong Hinson is [...] MD 09/23/2019 1:56 PM * Cynthia David, INSPECTOR FILTERS - 09/23/2019 10:30 AM EDT Goal Group: [...] led group over unit rules in [facility]. Sits quietly during group. Does make an occasional comment regarding rules, and appropriately takes a turn reading a rule. 0951 Pt sitting at table playing a card game with peers. 1000 Pt present in nurse led group over bullying. Pt participates appropriately. 1200 Pt's dad and step mom on unit visiting. Visitors updated of change to visitation. 1305 Received call from pt's guardian,mom, Svetlanageorge. Pts mom upset that she hasn't been contacted with any information regarding her daughter. Explained to pt's mother that we would have contacted herif needed, advised her to call tomorrow and speak with CPS and social science research assistant for clarification to her placement following discharge [...] phone. I want to call my CPS rn case management .Pt attempted to contact JUAN CARLOS Holcomb, [...] supervised during visitation. Pt had participated in [facility] exercise therapy session and was appropriately social [...] Name: Tong Hinson Admit Date: MR #: [id number] : 2005 Perpetual Assessment Tong Hinson is [...] MD 09/22/2019 4:33 PM * Linda Bingham, INSPECTOR FILTERS - 09/22/2019 3:15 PM EDT 3939-9408 Recreation Therapy: Pt out in lounge when approached for group, willing to participate. Group was taught new leisure skill of large group game of LCR(Left Center Right), to which pt was familiar with. PT recalled directions and required no assist or limits be set. Poor frustration tolerance displayed with peers. Benefits of leisure presented, to which pt not interested. * Linda Bingham, INSPECTOR FILTERS - 09/22/2019 11:00 AM EDT 7176-5545 Goal group: Pt out in lounge with peers, playing cards, staff supervising, when [...] Name: Tong Hinson Admit Date: MR #: [id number] : 2005 Perpetual Assessment Tong Hinson is [...] attends 15:30 therapy group 16:30 eating in [facility] with peers 16:45 one on one interaction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
[2025-04-02 06:27] LABS: Hematocrit 34.7 % (36.0-48.0); Hemoglobin 11.6 g/dL (12.0-16.0); Immature Granulocytes Abs Auto 0.03 10^3/uL (0.00-0.03); Immature Granulocytes Pct Auto 0.4 % (0.0-0.5); Lymphocytes Absolute Auto 2.1 10^3/uL (1.2-3.8); Mean Corpuscular HGB Conc 33.4 g/dL (29.9-35.2); Mean Corpuscular Hemoglobin 27.6 pg (26.7-34.0); Mean Corpuscular Volume 82.6 fL (81.0-99.0); Platelet Count 310 10^3/uL (150-450); Red Blood Count 4.20 10^6/uL (4.20-5.40); White Blood Count 7.2 10^3/uL (4.0-11.0)
--- NOTE | 2025-04-02 08:39 | P.ON_ITS ---
Brief Operative Note Date of procedure: 04/02/25 Pre-op diagnosis general: incomplete first trimester Post-op diagnosis: same as pre-op Procedure: NAME OF PROCEDURE: [D&C suction ] PROCEDURE: The patient was taken back to the OR where she was given general anesthesia without difficulty. She was then placed in dorsal lithotomy position, prepped and draped in the normal sterile fashion. A weighted speculum was placed in the patient's vagina and the anterior lip of the cervix was identified and grasped with a single-tooth tenaculum. The patient was then gently dilated using Hegar dilators after we had sounded roughly to 11 cm. The suction curette was then tested. The suction curette was then placed in the patient's uterus and products of conception were removed using an 10-Tr[place] suction curette. ?Excellent hemostasis was noted. The patient tolerated the procedure well. Sponge, lap, and needle counts were correct x 2. All instruments were then removed from the patient's vagina. The patient was taken to the Recovery Room in stable condition. ?? Anesthesia: MAC Surgeon: Gilberto Fairbanks Estimated blood loss (mL): 5 Pathology: other (poc) Condition: stable Disposition: PACU Urinary Catheter Management Urinary Catheter Management Straight: Cath placed during this visit: no
== END 2025-04-02 10:29 | disposition home or self-care (01) ==
PROVIDERS: Visit Provider Obstetrics & Gynecology
PROC: (CPT 1965; principal; 2025-04-02 07:45)
DX: O03.4 Incomplete spontaneous abortion without complication (principal)
CPT/HCPCS: 59812; 36415; 84702; 85025; J1100; J1171; J1200; J1885; J2405; J2704

== ENCOUNTER 2025-04-11 15:38 | Outpatient (RCR) | payer OTHER, SELFPAY ==
--- OUTSIDE RECORDS SUMMARY | 2025-04-11 19:51 | XMS_ITS | CCD ---
Author Organization [facility] Inform ion Partnership [facility] Care Team Providers Care Contact Finger Assembler Name Role Phone LENO LIND Admitting Unavailable [...] Unavailable MAGDI ., DR REYES Admitting Unavailable [place], DR GEORGIA Portillo Consulting Unavailable MAGDI ., DR REYES Consulting Unavailable MAGDI ., DR REYES Attending Unavailable MAGDI ., DR REYES Consulting Unavailable MAGDI ., DR REYES Admitting Unavailable Jenise Miller Unavailable Gilberto Fairbanks DO Unavailable Latoya SCHMIDT Attending Unavailable Unavailable Primary Care Provider Unavailgeovanna SARMIENTO FAMILY, PHYSICIAN Primary Care Provider Unava ilable Leny Amezcua APRN Attending Provider GILBERTO FAIRBANKS Attending Unavailable GILBRETO FAIRBANKS Referring Unavailable MAR DUARTE Attending Unavailable Gilberto Fairbanks DO Attending Provider [phone] Gilberto Fairbanks Attending Unavailable Gilberto Fairbanks Admitting Unavailable Allergies Allergy Classification Reported Allergen(s) Allergy Type Date of Onset Reaction(s) Facility (16 sources) Lactose; Translations: [Unknown] Drug Allergy 09-14-2019 [facility] Three Repository Medications Current Medications Medication Drug [...] escitalopram oxalate (LEXAPR O) tablet 5 mg 12 hr guaiFENesin 600 mg ext ended release oral tablet (1 source) Start: 03-02-2025 take 1 tablet by gertrudis twice daily as needed for cough, then take 1 tablet by mouth every twelve hours as needed for cough Iron (2 sources) Start: 03-02-2025 take 1 capsule by mo [facility] once daily Start: 03-02-2025 take 1 capsule by mo [facility] once daily Pnv 725-Rmhd-Gzrigc-Dha 90 mg iron- 1 mg-200 mg capsule Active 1 CAP PO Daily March 02, 2025 12:00am Complies with drug therapy Levonorgestrel (2 sources) Progestin, Progestin-containing Intrauterine Device Usha Active predniSONE 20 mg oral tablet (3 sources) Start: take 1 tablet by mouth every twelve hours predniSONE 20 MG 1 tablet Orally bid for 5 day(s) Mar, Active Completed/Discontinued Medications Medication Drug Class(es) Dates Sig (Normalized) Sig (Original) acetaminophen 325 mg oral tablet (1 source) Start: 09-14-2019 End: 09-25-2019 take 1 tablet by mouth every four hours as needed acetaminophen (TYLENOL) tablet 650 mg [id number] 200 actuat albuterol 0.09 mg/actuat metered dose [...] female pelvis] Onset: 03-12-2022 Episodic Adjustment disorders (2 sources) Adjustment disorder with mixed disturbance of emotions [...] 09-14-2019 09-16-2019 Chronic Other lower respiratory disease (2 sources) Cough; Translations: [Cough] 03-02-2025 Episodic Other screening for suspected conditions (not mental disorders or infectious disease) (1 source) Evaluation finding; Translations: [Encounter for test, result negative] 03-21-2025 Episodic Other upper respiratory infections (3 sources) Acute sinusitis, unspecified; Translations: [Sore throat symptom] Episodic Past or Other Problems Problem Classification Problem Date Documented Da te Episodic/Chronic Unclassified (1 source) Contact with and (suspected) exposure to covid-19 Z20.822 Results Test Name Value Interpretation Reference Range Facility PATHOLOGY REQUEST FOR LAB CO RPon 04-05-2025 PATHOLOGY REQUEST FOR LAB COREY [facility] Comment on above: See report. Scanned copy available in EMR. [facility] ALL CBC WITH AUTO DIFFon BASOPHILS ABSOLUTE AUTO 0.1 N [facility] Basophils/100 WBC (Bld) 0.7 % 0.2 - 2.0 % [facility] Eosinophils/100 WBC (Bld) 3.5 % 0.9 - 7.0 % [facility] Erythrocyte distribution width (RBC) [Ratio] 13.3 % 11.0 - 15.0 % [facility] Hematocrit (Bld) [Volume fraction] 34.7 % Low 36.0 - 48.0 % [facility] Hemoglobin (Bld) [Mass/Vol] 11.6 g/dL Low 12.0 - 16.0 g/dL [facility] IMMATURE GRANULOCYTES ABS AUTO 0.03 [facility] Immature granulocytes/100 WBC (Bld) 0.4 % 0.0 - 0.5 % [facility] Interpretation and review of laboratory results Abnormal [facility] LYMPHOCYTES ABSOLUTE AUTO 2.1 [facility] Lymphocytes/100 WBC (Bld) 29.1 % 20.5 - 60.0 % [facility] MCH (RBC) [Entitic mass] 27.6 pg 26. 7 - 34.0 pg [facility] MCHC (RBC) [Mass/Vol] 33.4 g/dL 29.9 - 35.2 g/dL [facility] MCV (RBC) [Entitic vol] 82.6 fL 81.0 - 99.0 fL [facility] MONOCYTES ABSOLUTE AUTO 0.5 N [facility] Monocytes/100 WBC (Bld) 7.4 % 1.7 - 12.0 % [facility] NEUTROPHILS ABSOLUTE AUTO 4.2 [facility] Neutrophils/100 WBC (Bld) 58.9 % 43.0 - 75.0 % [facility] Platelet mean volume (Bld) [Entitic vol] 10.2 fL 9.5 - 13.5 fL [facility] TB EO # 0.3 [facility] TB PLT 310 [facility] RBC 4.2 [facility] TB WBC 7.2 [facility] CL[facility] ALL TYPE AND SCREENon 2024 ABO and Rh group Nom (Bld) Blood group O Rh(D) positive [facility] , [facility] PREG QUANT HCGon 025 HCG QUANTITATIVE 91701 mIU/mL [facility] Comment on above: 5-50 0.2-1 WEEK 50-500 1-2 WEEKS 100-5,000 2-3 WEEKS 500-10,000 3-4 WEEKS 1,000-50,000 4-5 WEEKS 10,000-100,000 5-6 WEEKS 15,000-200,000 6-8 WEEKS 10,000-100,000 2-3 MON[facility]S [facility]REG QUANT HCGon 025 HCG QUANTITATIVE 31651 mIU/mL [facility] Comment on above: 5-50 0.2-1 WEEK 50-500 1-2 WEEKS 100-5,000 2-3 WEEKS 500-10,000 3-4 WEEKS 1,000-50,000 4-5 WEEKS 10,000-100,000 5-6 WEEKS 15,000-200,000 6-8 WEEKS 10,000-100,000 2[facility]AL[facility] US OB TRANSVAGINAL FINDINGS: Comparison made with prior [...] menstrual period was 01/14/2025. US OB TRANSVAGINALon US OB TRANSVAGINAL FINDINGS: Comparison March 07, [...] Comment: US OB TRANSVAGINAL No LMP recorded. Influenza virus A and B and SARS-CoV-2 (COVID-19) RNA panel - Respiratory system specOrdered By: Lenydario Amezcua on 03-02-2025 Influenza virus A and B RNA and SARS-CoV-2 (COVID-19) N gene panel GEOVANNA+probe (Resp) Negative [facility] - Microbiology an d Antimicrobial susceptibilityOrdered By: Lenydario Amezcua on 03-02-2025 SARS-CoV-2 (COVID-19) RNA GEOVANNA+probe Ql (Unsp spec) Negative [facility] No Panel InformationOrdered By: Leny Amezcua on 03-02-2025 POC Influenza B (GEOVANNA) Negative [facility] Quick Strep (POC) [facility] PREG QUANT HCGon 025 HCG QUANTITATIVE 314 mIU/mL [facility] Comment on above: 5-50 0.2-1 WEEK 50-500 1-2 WEEKS 100-5,000 2-3 WEEKS 500-10,000 3-4 WEEKS 1,000-50,000 4-5 WEEKS 10,000-100,000 5-6 WEEKS 15,000-200,000 6-8 WEEKS 10,000-100,000 2-3 MONTHS [facility] PREG QUANT HCGon 025 HCG QUANTITATIVE 127 mIU/mL [facility] Comment on above: 5-50 0.2-1 WEEK 50-500 1-2 WEEKS 100-5,000 2-3 WEEKS 500-10,000 3-4 WEEKS 1,000-50,000 4-5 WEEKS 10,000-100,000 5-6 WEEKS 15,000-200,000 6-8 WEEKS 10,000-100,000 2-3 MONTHS [facility] US PELVIC COMPLETE W/ TVon 0 01-21-2025 [...] given: yes Instructions and paperwork completed: yes [place] protocol: Patient states understanding of procedure being [...] office for annual exam unless needed otherwise [facility] PREG QUANT HCGon -14-2 024 HCG QUANTITATIVE <1 mIU/mL [facility] Comment on above: 5-50 0.2-1 WEEK 50-500 1-2 WEEKS 100-5,000 2-3 WEEKS 500-10,000 3-4 WEEKS 1,000-50,000 4-5 WEEKS 10,000-100,000 5-6 WEEKS 15,000-200,000 6-8 WEEKS 10,000-100,000 2-3 MONTHS [facility] PREG QUANT HCGon 024 HCG QUANTITATIVE <1 mIU/mL [facility] Comment on above: 5-50 0.2-1 WEEK 50-500 1-2 WEEKS 100-5,000 2-3 WEEKS 500-10,000 3-4 WEEKS 1,000-50,000 4-5 WEEKS 10,000-100,000 5-6 WEEKS 15,000-200,000 6-8 WEEKS 10,000-100,000 2-3 MONTHS [facility] COVID Quick Testingon 2022 Result Negative [employer] Other CULTURE WOUNDon 11-07-2022 CULTURE WOUND Culture Observations : ANAEROBE PRESENT. Isolate 1 Peptostreptococcus anaerobius Light growth of Normal The [facility] Comment on above: Result Comment: EVID ENCE BASED PRACTICE BY [facility] HAS DEMONSTRATED THAT PEPTOSTREPTOCOCCUS SPECIES ARE ROUTINELY SUSCEPTIBLE TO PIPERACILLIN-TAZOBACTAM, CEFOXITIN, ERTAPENEM, IMIPENEM, METRONIDAZOLE AND VARIABLY RESISTANT TO CLINDAMYCIN. Performed By: #### W OUNDCX #### [facility] [address] [place] [address] Dr. Mayra Barajas US PELVIS AND TRANSVAGon [...] GEORGIA CHANG Date: 2022-03-12 17:19 Normal [facility] CHLAMYDIA/GONOCOCCUS GEOVANNA (SW AB/URINE/PAPon 03-08-2022 Chlamydia trachomatis, GEOVANNA Negative Normal Negative [facility] Comment on above: Performed By: #### C T/NGNA #### [facility] [address] [place] [address] Dr. Mayra Barajas Neisseria gonorrhoeae, GEOVANNA Negative Normal Negative [facility] Comment on above: Performed By: #### C T/NGNA #### [facility] [address] [address] [address] Mayra Barajas VAGINITIS/VAGINOSIS DNA PROB Charles 03-07-2022 Ginger species Negative Normal Negative [facility] Comment on above: Performed By: #### V AGINT #### [facility] [address] [place] [address] Dr. Mayra Barajas Gardnerella vaginalis Positive Abnormal Negative [facility] Comment on above: Performed By: #### V AGINT #### [facility] [address] [place] [address] Dr. Mayra Barajas Trichomonas vaginalis Negative Normal Negative [facility] Comment on above: Performed By: #### V AGINT #### [facility] [address] [place] [address] Dr. Mayra Barajas URINALYSISon 09-17-2019 Bacteria Auto Ql (U) Rare Abnormal None Se en /hpf [facility] Bilirubin Ql (U) Negative Negative [facility] th Clarity Refractometry automated (U) Hazy Abnormal Clear [facility] Color (U) Yellow Colorless, Yellow [facility] Epithelial cells.squamous Auto (Urine sed) [#/Area] <1 [facility] Glucose Auto test strip (U) [Mass/Vol] Negative Negative mg/dL [facility] Hemoglobin Auto test strip Ql (U) Negative Negative [facility] Interpretation and review of laboratory results Abnormal [facility] Ketones (U) [Mass/Vol] Negative Negat meli mg/dL [facility] Leukocyte esterase Auto test strip Ql (U) Negative Negative [facility] Mucus Auto (Urine sed) [#/Area] Rare None Seen, Rare /lpf [facility] Nitrite Auto test strip Ql (U) Negative Negative [facility] pH (U) 6.0 [pH] [facility] Protein (U) [Mass/Vol] Negative Negat meli mg/dL [facility] RBC Auto (Urine sed) [#/Area] <1 [facility] Specific gravity (U) [Rel density] 1.025 [facility] Urobilinogen (U) [Mass/Vol] <2.0 <2.0 mg/dL [facility] Microscopic examination is performed on all urinalysis samples and only positive findings are reported. The test for blood on the chemical analytic portion of urinalysis may also be positive due to hemoglobinuria and myoglobinuria and if red blood cells are present they are quantified by microscopic examination. [facility] Vital Signs Date Time Vital Sign Value Performing Clinician Facility 03-14-2025 15:12-0400 Body mass index (BMI) [Ratio] 38.61 kg/m2 Mar Duarte NP Work Phone: [facility] 03-14-2025 15:12-0400 Body weight 105.23 kg Mar Duarte NP Work Phone: [facility] 03-14-2025 15:12-0400 Diastolic blood pressure 76 mm[Hg] Mar Duarte [employer]FFEE [employer] Work Phone: [facility] 03-14-2025 15:12-0400 Systolic blood pressure 122 mm[Hg] Mar Duarte NP Work Phone: [facility] 03-02-2025 11:33-0400 Body height 167.64 cm PHYSICIAN NO [facility] 03-02-2025 11:33-0400 Body mass index (BMI) [Ratio] 37.3 kg/m2 PHYSICIAN NO [facility] 03-02-2025 11:33-0400 Body temperature 98.3 [degF] PHYSICIAN NO [facility] 03-02-2025 11:33-0400 Body weight 105 kg PHYSICIAN NO [facility] 03-02-2025 11:33-0400 Diastolic blood pressure 68 mm[Hg] PHYSICIAN NO [facility] 03-02-2025 11:33-0400 Heart rate 107 /min PHYSICIAN NO [facility] 03-02-2025 11:33-0400 Respiratory rate 18 /min PHYSICIAN NO [facility] 03-02-2025 11:33-0400 SaO2% (BldA) [Mass fraction] 98 % PHYSICIAN NO [facility] 03-02-2025 11:33-0400 Systolic blood pressure 100 mm[Hg] PHYSICIAN [facility] 01-01-2025 09:50-0400 Body mass index (BMI) [Ratio] 38.41 kg/m2 Gilberto Magdi DO Work Phone: [facility] 01-01-2025 09:50-0400 Body weight 104.69 kg Gilberto Magdi DO Work Phone: [facility] 01-01-2025 09:50-0400 Diastolic blood pressure 74 mm[Hg] Gilberto Magdi DO Work Phone: [facility] 01-01-2025 09:50-0400 Systolic blood pressure 114 mm[Hg] Gilberto Magdi DO Work Phone: [facility] 04-08-2023 16:30-0400 Body height 165.1 cm Jenise Miller Other [employer] Other 04-08-2023 16:30-0400 Body mass index (BMI) [Ratio] 29.15 kg/m2 Jenise Miller Other [employer] Other 04-08-2023 16:30-0400 Body temperature 98 [degF] Jenise Miller Other [employer] Other 04-08-2023 16:30-0400 Body weight 79.47 kg Jenise Miller Other [employer] Other 04-08-2023 16:30-0400 Diastolic blood pressure 67 mm[Hg] Jenise Miller Other [employer] Other 04-08-2023 16:30-0400 SaO2% (BldA) [Mass fraction] 97 % Jenise Miller Other [employer] Other 04-08-2023 16:30-0400 Systolic blood pressure 102 mm[Hg] Jenise Miller Other [employer] Other 02-28-2023 17:00-0400 Body height 167.64 cm Jenise Israelmond Other [employer] Other 02-28-2023 17:00-0400 Body mass index (BMI) [Ratio] 28.08 kg/m2 Jenise Miller Other [employer] Other 02-28-2023 17:00-0400 Body temperature 97.7 [degF] Jenise Miller Other [employer] Other 02-28-2023 17:00-0400 Body weight 78.93 kg Jenise Miller Other [employer] Other 02-28-2023 17:00-0400 Diastolic blood pressure 72 mm[Hg] Jenise Miller Other [employer] Other 02-28-2023 17:00-0400 Respiratory rate 18 /min Jenise Israelmond Other [employer] Other 02-28-2023 17:00-0400 SaO2% (BldA) [Mass fraction] 98 % Jenise Israelmond Other [employer] Other 02-28-2023 17:00-0400 Systolic blood pressure 108 mm[Hg] Jenise Angela Other [employer] Other 09-25-2019 07:41-0400 Body Temperature 97.81 [degF] [facility] 09-25-2019 07:41-0400 BP Diastolic 64 mm[Hg] [facility] 09-25-2019 07:41-0400 BP Systolic 96 mm[Hg] [facility] 09-25-2019 07:41-0400 Pulse (Heart Rate) 80 /min [facility] 09-25-2019 07:41-0400 Pulse Oximetry 99 % [facility] 09-24-2019 09:00-0400 Respiratory Rate 16 /min [facility] 09-14-2019 17:18-0500 BMI (Body Mass Index) 28.29 kg/m2 [facility] 09-14-2019 17:18-0500 Body weight 77.11 kg [facility] 09-14-2019 17:18-0500 Height 165.1 cm [facility] Encounters Encounter Date Encounter Type Care Provider Facility Start: 04-02-2025 End: 04-02-2025 [facility] Result Encounter Gilberto Magdi DO Work Phone: [facility] Unsolicited Start: 04-02-2025 End: 04-05-2025 [facility] Result Encounter Gilberto Magdi DO Work Phone: [facility] Unsolicited Start: 04-02-2025 End: 04-05-2025 External Result Encounter Gilberto Magdi DO Work Phone: [facility] Unsolicited Start: 04-02-2025 End: 04-02-2025 ambulatory PHYSICIAN NO [facility] Work Phone: Start: 04-02-2025 End: 04-02-2025 Departed Referred Gilberto Magdi -LAB [facility] Start: 04-01-2025 End: 04-01-2025 [facility]ync Result Encounter Gilberto Magdi DO Work Phone: [facility] Unsolicited Start: 04-01-2025 End: 04-01-2025 [facility] Result Encounter Gilberto Magdi DO Work Phone: [facility] Unsolicited Start: 03-25-2025 End: 03-27-2025 Telephone encounter Mar Duarte [employer] Work Phone: [facility] Start: 03-23-2025 End: 03-23-2025 [facility] Result Encounter Mar Loyderly [employer] Work Phone: [facility] Unsolicited Start: 03-23-2025 End: 03-23-2025 [facility] Result Encounter Mar Loyderly [employer] Work Phone: [facility] Unsolicited Start: 03-21-2025 End: 03-21-2025 [facility]inisync Result Encounter Mar Whitely [employer] Work Phone: [facility] Unsolicited Start: 03-21-2025 End: 03-21-2025 [facility]ync Result Encounter Mar Loyderly [employer] Work Phone: [facility] Unsolicited Start: 03-21-2025 End: 03-27-2025 ambulatory Mar Whitely [employer] Work Phone: Not Available Comment on above: examinatio n or test, negative result (Primary Dx) Start: 03-14-2025 End: 03-14-2025 Office outpatient visit 15 minutes Mar Whitely [employer] Work Phone: [facility] Comment on above: Vaginal bleeding aff ecting early ([facility]) (Primary Dx); Encounter to discuss test results Start: 03-14-2025 End: 03-14-2025 ambulatory MAR GERALD Not Available Start: 03-07-2025 End: 03-07-2025 ambulatory GILBERTO FAIRBANKS Not Available Start: 03-02-2025 End: 03-02-2025 ambulatory PHYSICIAN GUILLERMINA [facility] Work Phone: Start: 03-02-2025 End: 03-02-2025 Patient encounter procedure Leny Lira [facility] Work Phone: Start: 02-13-2025 [...] Not Available Start: 06-05-2024 End: 06-05-2024 ambulatory [facility] Facility:[facility] Start: 05-24-2024 End: 05-24-2024 Clinisync Result Encounter [...] 04-08-2023 End: 04-08-2023 ambulatory Jenise Miller Other [employer] Other Start: 04-08-2023 Office outpatient vi sit 15 minutes Jenise Miller [facility] Start: 02-28-2023 End: 02-28-2023 ambulatory Jenise Miller Other [employer] Other Start: 02-28-2023 Office outpatient vi sit 15 minutes Jenise Miller [facility] Start: 11-07-2022 End: 11-07-2022 ambulatory GERBER DOE . Facility:[facility] Start: 03-12-2022 End: 03-13-[address] GILBERTO FAIRBANKS . Facility:[facility] Start: 03-04-2022 End: 03-04-[address] GILBERTO FAIRBANKS . Facility: Start: 09-14-2019 End: 09-25-2019 Evaluation and management of inpatient [facility] Start: 09-14-2019 End: 09-25-2019 Evaluation and management of inpatient [facility] Work Phone: [facility] Procedures Date Procedure Procedure Detail Performing Clinician Start: 04-02-2025 PATHOLOGY REQUEST FO R LAB COREY Gilberto Magdi DO Work Phone: Start: 04-02-2025 ALL CBC WITH AUTO DIFF Gilberto Magdi DO Work Phone: Start: 04-01-2025 Antibody screen Gilberto F azio DO Work Phone: Start: 04-01-2025 ALL TYPE AND SCREEN Cor ey Magdi DO Work Phone: Start: 03-23-2025 [facility] PREG QUANT HCG David obed Duarte [employer] Work Phone: Start: 03-21-2025 [facility] PREG QUANT HCG David obed Gerald [employer] Work Phone: Start: 03-02-2025 Quick Strep (POC) [...] Treatment Date Care Activity Detail Author Start: 04-10-2025 End: 04-10-2025 Patient encounter procedure 04/10/2025 10:40 AM EDT Office Visit BAIRON MCDANIEL [address] [place] [address] Mar Duarte, COFFEE FARMER [address] [place] [id number] BAIRON Mart[facility] Start: 04-02-2025 [facility] Start: 03-27-2025 End: 03-27-2025 Professional / ancillary services management 03/27/2025 1:00 PM EDT Ancillary Procedure BAIRON MCDANIEL [address] [facility] [place] [address] [facility] Start: 03-21-2025 End: 03-21-2026 hCG, quantitative hCG, quantitative Lab Routine examination or test, negative result Expected: 03/21/2025 (Approximate), Expires: 03/21/2026 [facility] Work Phone: Comment on above: Expected: 03/21/2025 (Approximate), Expires: 03/21/2026 Start: 03-11-2025 Influenza vaccination [facility] Start: 03-07-2025 End: 03-07-2025 ambulatory 03/07/2025 1:00 PM EDT Initial [facility] [address] [place] [address] [facility] Start: 03-07-2025 End: 03-07-2025 Professional / ancillary services management 03/07/2025 12:30 PM EDT Ancillary Procedure [facility] [address] [place] [id number] [facility] Start: 03-04-2025 End: 03-04-2025 Patient encounter procedure [facility] Start: 01-21-2025 End: 01-21-2025 Professional / ancillary services management 01/21/2025 2:30 PM EDT Ancillary Procedure [facility] [address] [place] [id number] [facility] Start: 01-01-2025 End: 07-03-2025 US Pelvis US Pelvis w/ TV Imaging Routine Pelvic pain in female Expected: 01/01/2025, Expires: 07/03/2025 [facility] Work Phone: Comment on above: Expected: 01/01/2025 , Expires: 07/03/2025 Start: 03-11-2024 Influenza vaccination Influenza Vacc ine (#1) [facility] Payers Date Payer Category Payer Self-pay 2025 Private Health Insurance [facility] [id number] 2025 Private Health Insurance [id number] 2023 [employer] Blue [employer] BCBS [id number] 2023 Unknown [id number] 2022 Medicaid [id number] 2017 Medicaid [id number] 2017 Medicaid [employer] [place] [employer] xxxxxxxxxxx 2017-Present xxxxxxxxxxx [id number] 2003 Unknown [id number]. 593 2003 Unknown [id number]. 593 2003 Unknown [id number]. 1259 2003 Unknown [id number] [id number]. 1259 2003 Unknown [id number] [id number]. 1259 2003 Unknown [id number] [id number]. 1259 2003 Unknown [id number] [id number]. 1259 2003 Unknown [id number] [id number]. 1259 1984 Unknown [id number] [id number]. 903 1984 Unknown [id number] [id number]. 593 1959 Unknown [id number] Unknown [id number] Unknown [id number]. 531 Social History Date Type Detail Facility Start: 09-14-2019 End: 05-10-2023 Tobacco smoking status [facility] Never smoker [facility] Start: 09-14-2019 Alcohol intake Ex-drinker (finding) [facility] Start: 2003 Sex Assigned At Not on file O [facility] Start: 06-23-2023 End: 01-01-2025 Sex Assigned At [place] [facility] Other Start: 05-10-2023 Tobacco use and exposure Smokeless tobacco non-user [facility] Start: 06-23-2023 End: 03-14-2025 Alcoholic beverage intake Lifetime non-drinker (finding) [facility] Start: 06-23-2023 End: 01-01-2025 History of Social function [facility] Sex Female (finding) [facility] Start: 2003 Sex Assigned At Female F [facility] Clinical Notes 02-28-2023 to 03-25-2025 Telephone Encounter - Mar Duarte NP - 03/25/2025 2:04 PM EDTTelephone Encounter - Mar Duarte NP - 03/25/2025 2:04 PM EDTMar Duarte NP - 03/14/2025 3:00 PM EDT Note Date & Type Note Facility 03-25-[address] er Note Dr. Fairbanks spoke with patient regarding HCG [facility] Work Phone: 03-25-2025 Miscellaneous Notes Formattin g of this note might be different from the original. Dr. Fairbanks spoke with patient regarding HCG documented in this encounter [facility] 03-14-2025 History of Presen t illness Narrative [...] nursing note reviewed. Exam conducted with a development vice president present. Vitals: Estimated body mass index is [...] Mar Duarte NP documented in this encounter [facility] 03-02-2025 Evaluation note Diagnosis Onset Date Resolution Cough noneactive March 02, 025 11:22am Sore throat noneactive March 02, 2025 11:22am [facility] Work Phone: [phone] [phone] History of Present illness Narrative* Mirela DL Mcnair - 01/01/2025 9:30 AM EDTAssociated Order(s): IUD Removal Post-Procedure Diagnose(s): Encounter for [...] nursing note reviewed. Exam conducted with a development vice president present. Vitals: Estimated body mass index is [...] given: yes Instructions and paperwork completed: yes [place] protocol: Patient states understanding of procedure being [...] of: Gilberto Fairbanks DO [id number] Evaluation note* Encounter Date Diagnosis Assessment Notes Treatment Notes Treatment Clinical Notes Mar, Contact with and (suspected) exposure [...] exacerbation, unspecified whether persistent (ICD-10 - J45.901) [employer] Other 08-21-2023 Evaluation note* Encounter Date Diagnosis [...] dermati tis home care material was printed [employer] Other Evaluation note* Diagnosis Encounter for IUD removal Pelvic pain in female Unspecified symptom associated with female genital organs [facility]* Diagnosis Onset Date Resolution Status Admit Date Cough noneactive March 02, 025 11:22am Sore throat noneactive March 02, 2025 11:22am [facility] Work Phone: Evaluation note* Diagnosis Vaginal bleeding affecting early (HHS-HCC)- Primary Encounter to discuss test results Other specified counseling [facility]* Diagnosis examination or test, negative result- Primary documented in [facility] encounter [facility] HealthcareHistory general Narrative - Reported* Type Description Date Surgical History C section [employer] Other Reason for referral (narrative)No reason for referral [facility] Work Phone: Summary Purpose Family History No Family History Records FoundNo Family History Records FoundNo Family History Records FoundNo Family History Records FoundNo Family History Records Found Advance Directives Documents on File Type Date Recorded 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 female school student resident of [facility] was brought to [place] [facility] [...] . Patient is visiting her father in [place] every other weekend and reportedly has good [...] <4 cigarettes daily. Disposition: Home Follow Up: [facility] [place] [id number] Follow up on 10/05/2019 Appointment time: 11:00am with Nato for counseling; SURINDER was told to call day before discharge [facility] psychiatry appointment.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 documented in this encounter Care Teams (unrecognized sec tion and content) Contact Finger Assembler Relationship Specialty Start Date End Date Gilberto Fairbanks DO [address] [place] [address] PCP - [employer] [facility] 07/11/23 Contact Finger Assembler Relationship Specialty Start Date End Date [place] [address] PCP - [employer] 07/11/23 Contact Finger Assembler Relationship Specialty Start Date End Date Gilberto Fairbanks DO [address] [place] [address] PCP - [employer] 07/11/23 Team Status: Active Member Role Status Dates PHYSICIAN NO FAMILY Primary Care Provider Active Team Status: Inactive Member Role Status Dates PHYSICIAN NO FAMILY Primary Care Provider Active Start: March 02, 2025 End: March 02, 2025 Leny Amezcua APRN Attending Provider Active S tart: March 02, 2025 End: March 02, 2025 Team Status: Inactive Member Role Status Dates Gilberto DO Magdi Attending Provider Active Start : April 02, 2025 End: April 02, 2025 Goals (unrecognized section and content) [...] BE BASED ON THE PRIMARY CLINICAL RECORDS. [employer] provides no warranty or guarantee of the accuracy or completeness of information in this document.
== END 2025-05-13 11:56 | disposition home or self-care (01) ==
LOC: LAB 15:38
PROVIDERS: Visit Provider Nurse Practitioner Family
DX: O03.9 Complete or unspecified spontaneous abortion without complication (principal)
CPT/HCPCS: 36415; 84702